=== PATIENT | female | born 1935 | race Two or more races ===

== ENCOUNTER → 2017-03-28 | Outpatient (CLI) | payer OTHER, MEDICAID | LOC: FIMAGING 12:24 | PROVIDERS: ATTEND Internal Medicine Infectious Disease | DX: R76.11 Nonspecific reaction to tuberculin skin test without active tuberculosis (principal); Z87.898 Personal history of other specified conditions ==

== ENCOUNTER 2017-05-19 13:42 | Emergency (ER) | payer OTHER, MEDICAID ==
--- NOTE | 2017-05-19 13:56 | EDPHY ---
H & P Stated Complaint: fell tues/inj low back and knees/can't walk r/t pain - Personal History Current Tetanus/Diphtheria Vaccine: Yes - Medical/Surgical History Hx Asthma: No Hx Chronic Respiratory Disease: No Hx Diabetes: Yes Hx Cardiac Disease: No Hx Renal Disease: No Hx Cirrhosis: No Hx Alcoholism: No Hx HIV/AIDS: No Hx Splenectomy or Spleen Trauma: No Other PMH: HTN, STROKE, diabetes, arthritis - Social History Smoking Status: Former smoker Time Seen by Provider: 05/19/17 13:55 Constitutional: Initial Vital Signs Temperature (C) 36.8 C 05/19/17 13:47 Heart Rate 81 05/19/17 13:47 Respiratory Rate 18 05/19/17 13:47 Blood Pressure 155/75 H 05/19/17 13:47 O2 Sat (%) 95 05/19/17 13:47 O2 Delivery Mode Room Air Allergies/Adverse Reactions: Penicillins Allergy (Unknown, Verified 05/19/17 13:46) Home Medications: Medication Instructions Recorded Aspirin EC [Aspirin EC 81 mg (*)] 81 mg PO DAILY 01/04/16 Calcium Carb W/Vit D [Calcium Carb 500 mg PO DAILY 01/04/16 W/Vit D 500/200 (*)] Cetirizine [ZyrTEC 10 mg (*)] 10 mg PO DAILY 01/04/16 Hydrochlorothiazide 25 mg PO DAILY 01/04/16 Rosuvastatin Calcium [Crestor] 10 mg PO HS 01/04/16 metFORMIN HCL [Glucophage 500 mg 1,000 mg PO BIDMEAL 01/04/16 (*)] LOSARTAN POTASSIUM 25 mg PO DAILY 02/15/16 Lisinopril [Zestril 10 mg (*)] 10 mg PO DAILY 04/13/16 predniSONE 2.5 mg PO TID 04/13/16 sulfaSALAzine [Azulfidine 500 MG 500 mg PO BID 04/13/16 (*)] Acetaminophen [Tylenol 325mg (*)] 650 mg PO Q4 PRN #0 tab 04/16/16 Pantoprazole Sodium [Protonix 40mg 40 mg PO DAILY #21 tab 04/16/16 (*)] Medical Decision Making ED Course/Re-evaluation: CHIEF COMPLAINT: HISTORY OF PRESENT ILLNESS: must have 4 elements: Location, Quality, Severity , Duration, Timing, Context, Modifying Factors, Associated Signs and Symptoms REVIEW OF SYSTEMS: A 10 point review of systems was performed and is negative with the exception of the elements mentioned in the history of present illness. PHYSICAL EXAM: HR, BP, O2 Sat, RR. Temp noted General Appearance: Alert, well hydrated, appropriate, and non-toxic appearing. Head: Atraumatic without scalp tenderness or obvious injury Eyes: Pupils equal, round, reactive to light and accommodation, EOMI, no trauma , no injection. Ears: Clear bilaterally, no perforation, normal landmarks Nose: Atraumatic, no rhinorrhea, clear. Throat: There is no erythema or exudates, no lesions, normal tonsils, mucus membranes moist. Neck: Supple, 2+ carotid upstroke, nontender, no lymphadenopathy. Respiratory: No retractions, no distress, no wheezes, and no accessory muscle use. Lungs are clear to auscultation bilaterally. Cardiovascular: Regular rate and rhythm, no murmurs, rubs, or gallops. Bilateral carotid, radial, dorsalis pedis, and posterior tibial pulses intact. Good capillary refill all extremities. Gastrointestinal: Abdomen is soft, nontender, non-distended, no masses, no rebound, no guarding, no peritoneal signs. Musculoskeletal: Normal active ROM of all extremities, atraumatic. Neurological: Alert, appropriate, and interactive. The patient has normal DTRs and non-focal cranial nerves, motor, sensory, and cerebellar exam. Skin: No rashes, good turgor, no nodules on palpation. Past medical history: Past surgical history: Family history: Social history: DIAGNOSTICS/PROCEDURES/CRITICAL CARE TIME: DIFFERENTIAL DIAGNOSIS: MEDICAL DECISION MAKING: (Vance Marina) Departure - Departure Referrals: Yemi Brewer MD [Primary Care Provider] - As per Instructions
[2017-05-19] MEDS ORDERED: ONDANSETRON 4 MG/2 ML VIAL IVP ONE (14:29)
[2017-05-19 14:35] LABS: % IMMATURE GRANULYOCYTES 0.2 % (0.0-1.1); ABSOLUTE IMMATURE GRANULOCYTES 0.02 10^3/uL (0.00-0.10); ADD DIFF? NO; ADD MORPH? NO; ADD SCAN? NO; ATYPICAL LYMPHOCYTE FLAG 0 (0-99); FRAGMENT RBC FLAG 0 (0-99); HEMATOCRIT 37.4 % (38.0-47.0); HEMOGLOBIN 13.2 g/dL (12.6-16.3); LEFT SHIFT FLG 0 (0-99); LIPEMIA HEMOLYSIS FLAG 90 (0-99); MEAN CELL HEMOGLOBIN 30.1 pg (27.9-34.1); MEAN CELL HEMOGLOBIN CONCENTR. 35.3 g/dL (32.4-36.7); MEAN CELL VOLUME 85.4 fL (81.5-99.8); PLATELET CLUMPS FLAG 10 (0-99); PLATELET COUNT 326 10^3/uL (150-400); RED BLOOD CELL COUNT 4.38 10^6/uL (4.18-5.33); RED CELL DISTRIBUTION WIDTH 13.2 % (11.5-15.2)
[2017-05-19 14:45] LABS: ANION GAP 15 mEq/L (8-16); CALCIUM 10.5 mg/dL (8.5-10.4); CARBON DIOXIDE 22 mEq/l (22-31); CHLORIDE 91 mEq/L (97-110); CREATININE 0.7 mg/dL (0.6-1.0); GLOMERULAR FILTRATION RATE > 60; GLUCOSE 201 mg/dL (70-100); POTASSIUM 4.6 mEq/L (3.5-5.2); SODIUM 128 mEq/L (134-144); SPECIMEN HEMOLYSIS 166
[2017-05-19] MEDS ORDERED: NS 1,000 ML IV ONE (15:21)
[2017-05-19 15:44] LABS: COLOR AMBER; LEUKOCYTE ESTERASE,URINE NEGATIVE (NEGATIVE); NITRITE,URINE NEGATIVE (NEGATIVE)
[2017-05-19 15:45] LABS: MUCUS TRACE /lpf (NONE-1+)
--- NOTE | 2017-05-19 17:18 | EDPHY ---
H & P Stated Complaint: fell tues/inj low back and knees/can't walk r/t pain - Personal History Current Tetanus/Diphtheria Vaccine: Yes - Medical/Surgical History Hx Asthma: No Hx Chronic Respiratory Disease: No Hx Diabetes: Yes Hx Cardiac Disease: No Hx Renal Disease: No Hx Cirrhosis: No Hx Alcoholism: No Hx HIV/AIDS: No Hx Splenectomy or Spleen Trauma: No Other PMH: HTN, STROKE, diabetes, arthritis - Social History Smoking Status: Former smoker Time Seen by Provider: 05/19/17 13:55 HPI/ROS: Chief complaint. Back pain after fall HPI. 81-year-old female presents emergency department with low back pain and left leg pain after fall 4 days ago. She was walking down the stairs and apparently her low leg gave out and she sat down hard on her bottom on the step. She did not fall forward or down the stairs. Did not strike her head. She has complaint of pain to her neck, mid back as well as low back. She also complains of pain to the left hip and left knee. Difficulty walking secondary to pain. Denies chest pain or shortness of breath. No abdominal pain. ROS Constitutional. no fever/chills, no weakness Eyes. no problems with vision ENT. no sore throat, no nasal drainage Cardiovascular. no chest pain Respiratory. no shortness of breath, no cough Abdominal. no abdominal pain, no nausea/vomiting, no diarrhea . no problems urinating MS. Neck, thoracic, low back pain; pain to left hip and left knee Skin. no rash Lymph. no swollen glands Neuro. Difficulty walking secondary to pain (Pedro Mariano) - Medical/Surgical History PMH: Past medical history significant for hypertension, CVA, diabetes, arthritis ( Pedro Mariano) - Social History Additional Social History: Single, nonsmoker, no alcohol (Pedro Mariano) Constitutional: Initial Vital Signs Temperature (C) 36.8 C 05/19/17 13:47 Heart Rate 81 05/19/17 13:47 Respiratory Rate 18 05/19/17 13:47 Blood Pressure 155/75 H 05/19/17 13:47 O2 Sat (%) 95 05/19/17 13:47 O2 Delivery Mode Room Air Allergies/Adverse Reactions: Penicillins Allergy (Unknown, Verified 05/19/17 13:46) Home Medications: Medication Instructions Recorded Aspirin EC [Aspirin EC 81 mg (*)] 81 mg PO DAILY 01/04/16 Calcium Carb W/Vit D [Calcium Carb 500 mg PO DAILY 01/04/16 W/Vit D 500/200 (*)] Cetirizine [ZyrTEC 10 mg (*)] 10 mg PO DAILY 01/04/16 Hydrochlorothiazide 25 mg PO DAILY 01/04/16 Rosuvastatin Calcium [Crestor] 10 mg PO HS 01/04/16 metFORMIN HCL [Glucophage 500 mg 1,000 mg PO BIDMEAL 01/04/16 (*)] LOSARTAN POTASSIUM 25 mg PO DAILY 02/15/16 Lisinopril [Zestril 10 mg (*)] 10 mg PO DAILY 04/13/16 predniSONE 2.5 mg PO TID 04/13/16 sulfaSALAzine [Azulfidine 500 MG 500 mg PO BID 04/13/16 (*)] Acetaminophen [Tylenol 325mg (*)] 650 mg PO Q4 PRN #0 tab 04/16/16 Pantoprazole Sodium [Protonix 40mg 40 mg PO DAILY #21 tab 04/16/16 (*)] Acetaminophen [Tylenol Arthritis] 650 mg PO TID PRN #30 tablet.er 05/19/17 Medical Decision Making - Diagnostics Imaging: Discussed imaging studies w/ machine scallop cutter Radiologist ED Course/Re-evaluation: Care was transferred to Dr. Huber at 3:00 p.m. (Pedro Mariano) The patient's care is transferred to sc at 3:[address] Pedro Mariano. CT and imaging pending. The patient fell down her stairs a few days ago into a sitting position. She complains of full body pain. He she has a history of severe arthritis. She also has several old fractures. 5:20 p.m. we discussed the x-ray and CT results. Patient and family are reassured. She was slightly hypoxic after morphine but has now recovered. We discussed her pain and pain management. She does not have any symptoms consistent with a spinal cord or nerve injury. Family is reassured and they are eager to go home. They are asking for prescription strength Tylenol that she typically takes for pain because she ran out. She declines Vicodin. It has been too strong for her in the past. (Cameron Huber) Differential Diagnosis: Partial list of the Differential diagnosis considered include but were not limited to; fracture, dislocation, neuropathy, arthritis, fall, contusion and although unlikely based on the history and physical exam, I also considered head injury, infection. (Cameron Huber) - Data Points Laboratory Results: Laboratory Results 05/19/17 14:20 05/19/17 14:20 Medications Given: Discontinued Medications Sodium Chloride (Ns) 1,000 mls @ 0 mls/hr IV EDNOW ONE; Wide Open PRN Reason: Protocol Stop: 05/19/17 15:22 Last Admin: 05/19/17 15:29 Dose: 1,000 mls Morphine Sulfate (Morphine) 4 mg IVP EDNOW ONE Stop: 05/19/17 14:30 Last Admin: 05/19/17 14:36 Dose: 4 mg Ondansetron HCl (Zofran) 4 mg IVP EDNOW ONE Stop: 05/19/17 14:30 Last Admin: 05/19/17 14:36 Dose: 4 mg Departure - Departure Disposition: Home, Routine, Self-Care Clinical Impression: Arthritis Fall Qualifiers: Encounter type: initial encounter Qualified Code(s): W19.XXXA - Unspecified fall, initial encounter Condition: Fair Instructions: Fall Prevention for Older Adults (ED), Arthritis (ED) Referrals: Yemi Brewer MD [Primary Care Provider] - As per Instructions Prescriptions: Acetaminophen [Tylenol Arthritis] 650 mg PO TID PRN #30 tablet.er PRN Reason: Pain, Severe
[2017-05-19 17:39] VITALS: BP 137/56; PULSE 74; RESP 18; TEMP 98.4; O2SAT 98
== END 2017-05-19 17:35 | disposition home or self-care (01) ==
DX: M19.90 Unspecified osteoarthritis, unspecified site (principal); I10 Essential (primary) hypertension; E11.9 Type 2 diabetes mellitus without complications; E86.9 Volume depletion, unspecified; Z87.891 Personal history of nicotine dependence; Z86.73 Personal history of transient ischemic attack (TIA), and cerebral infarction without residual deficits; Z79.82 Long term (current) use of aspirin; Z79.84 Long term (current) use of oral hypoglycemic drugs; W18.39XA Other fall on same level, initial encounter
CPT/HCPCS: 72125; 72128; 72131; 73502; 73564; 96361; 96374; 96375; 99285; J2405

== ENCOUNTER 2017-07-02 08:25 | Emergency (ER) | payer OTHER, MEDICAID ==
--- NOTE | 2017-07-02 09:00 | EDPHY ---
H & P Stated Complaint: Fell last Sunday; pain all over;family wants admit for pain control Time Seen by Provider: 07/02/17 09:00 - Personal History Current Tetanus Diphtheria and Acellular Pertussis (TDAP): Unsure - Medical/Surgical History Hx Asthma: No Hx Chronic Respiratory Disease: No Hx Diabetes: Yes Hx Cardiac Disease: No Hx Renal Disease: No Hx Cirrhosis: No Hx Alcoholism: No Hx HIV/AIDS: No Hx Splenectomy or Spleen Trauma: No Other PMH: HTN, STROKE, diabetes, arthritis, chronic pain - Social History Smoking Status: Former smoker Constitutional: Initial Vital Signs Temperature (C) 36.9 C 07/02/17 08:30 Heart Rate 83 07/02/17 08:30 Respiratory Rate 18 07/02/17 08:30 Blood Pressure 180/80 H 07/02/17 08:30 O2 Sat (%) 95 07/02/17 08:30 O2 Delivery Mode Room Air Allergies/Adverse Reactions: Penicillins Allergy (Unknown, Verified 07/02/17 08:37) Home Medications: Medication Instructions Recorded Aspirin EC [Aspirin EC 81 mg (*)] 81 mg PO DAILY 01/04/16 Calcium Carb W/Vit D [Calcium Carb 500 mg PO DAILY 01/04/16 W/Vit D 500/200 (*)] Cetirizine [ZyrTEC 10 mg (*)] 10 mg PO DAILY 01/04/16 Hydrochlorothiazide 25 mg PO DAILY 01/04/16 Rosuvastatin Calcium [Crestor] 10 mg PO HS 01/04/16 metFORMIN HCL [Glucophage 500 mg 1,000 mg PO BIDMEAL 01/04/16 (*)] LOSARTAN POTASSIUM 25 mg PO DAILY 02/15/16 Lisinopril [Zestril 10 mg (*)] 10 mg PO DAILY 04/13/16 predniSONE 2.5 mg PO TID 04/13/16 sulfaSALAzine [Azulfidine 500 MG 500 mg PO BID 04/13/16 (*)] Acetaminophen [Tylenol 325mg (*)] 650 mg PO Q4 PRN #0 tab 04/16/16 Pantoprazole Sodium [Protonix 40mg 40 mg PO DAILY #21 tab 04/16/16 (*)] Acetaminophen [Tylenol Arthritis] 650 mg PO TID PRN #30 tablet.er 05/19/17 CYCLOBENZAPRINE HCL [Flexeril] 5 mg PO BID PRN #20 tab 07/02/17 oxyCODONE IR [Oxycodone Ir (*)] 5 - 10 mg PO Q6 PRN #20 tab 07/02/17 Medical Decision Making - Diagnostics Imaging Results: Imaging Impressions Knee X-Ray 07/02/17 09:35 Impression: No acute osseous findings. Pelvis CT 07/02/17 09:35 Impression: No acute osseous findings. If pain persists and clinical suspicion warrants, consider MRI. Findings discussed with Vance Marina MD, 07/02/2017, at 1054 hours. Shoulder X-Ray 07/02/17 09:35 Impression: 1. No acute osseous findings. 2. Chronic rotator cuff tear. 3. Moderate acromioclavicular arthrosis. 4. Additional findings as above. Imaging: Discussed imaging studies w/ bingo caller Radiologist ED Course/Re-evaluation: CHIEF COMPLAINT: Right hip pain. HISTORY OF PRESENT ILLNESS: The patient is an 81-year-old female presenting with right hip pain after a fall last week. The patient has not been able to walk since the fall. She also complains of left shoulder and left knee pain. Patient is in significant amount of pain. The patient was seen here 05/19 with back pain and left leg pain after a fall. She had x-ray imaging of her left knee and leg that was negative and CT imaging of CTL spine was negative. REVIEW OF SYSTEMS: A 10 point review of systems was performed and is negative with the exception of the elements mentioned in the history of present illness. PHYSICAL EXAM: General Appearance: Alert, no distress, talking appropriately, comfortable. Head: Atraumatic without scalp tenderness or obvious injury Eyes: Pupils equal, round, reactive to light and accommodation, EOMI, no trauma , no injection. Ears: Clear bilaterally, no perforation, no hemotympanum Nose: Atraumatic, no rhinorrhea, no septal hematoma Neck: The patient arrived in a cervical collar. All NEXUS criteria are negative. The cervical spine is non-tender and there is no pain or neurologic deficits with active range of motion. Supple, 2+ carotid upstroke bilaterally without bruit, no trauma, trachea midline. Cardiovascular: Heart is regular rate and rhythm without murmur. Bilateral carotid, radial, dorsalis pedis pulses intact. Good capillary refill all extremities. Chest: Atraumatic, equal bilateral breath sounds. Good oxygen saturations with normal minute ventilation. Chest is non-tender to palpation. Gastrointestinal: Soft, non-tender, non-distended. No rebound, guarding, or peritoneal signs. There is no evidence of external or internal trauma. Back: Spinal precautions were maintained as the patient was log-rolled with cervical control. There is no thoracic or lumbar spine or paraspinal tenderness. Spinal immobilization was removed. Extremities: All extremities are non-tender to palpation without obvious deformity. There is full active range of motion of the joints. Neurological: The patient has normal DTRs and non-focal Cranial nerves, motor, sensory, and cerebellar exam Skin: No lacerations, lópez, or abrasions. Past medical history: Hypertension, CVA, Diabetes, Arthritis Past surgical history: Denies. Family history: Noncontributory. Social history: Italian speaking. Family at bedside. DIAGNOSTICS/PROCEDURES/CRITICAL CARE TIME: I discussed imaging with the cotton expert radiologist, please see imaging section for full report. DIFFERENTIAL DIAGNOSIS: The differential diagnosis for the patient's trauma included but was not limited to intracranial injury, long bone and pelvic bone fractures, spinal injury, intra-abdominal injury, and intra-thoracic injury. MEDICAL DECISION MAKING: Patient presents with severe right hip pain and left shoulder and left knee pain after a mechanical fall. Patient has not been able to ambulate since the fall. Plan for x-ray imaging of hip, knee, and shoulder. X-ray imaging is negative for acute injuries. Pain likely chronic. I will have our rn case manager meet with the patient. I discussed findings with the patient. Plan to send patient home with Flexeril and Oxycodone for pain management. - Data Points Laboratory Results: Laboratory Results 07/02/17 09:15 07/02/17 09:15 07/02/17 07/02/17 09:15 09:15 WBC 12.40 10^3/uL H 10^3/uL (3.80-9.50) RBC 4.07 10^6/uL L 10^6/uL (4.18-5.33) Hgb 12.4 g/dL L g/dL (12.6-16.3) Hct 36.5 % L % (38.0-47.0) MCV 89.7 fL fL (81.5-99.8) MCH 30.5 pg pg (27.9-34.1) MCHC 34.0 g/dL g/dL (32.4-36.7) RDW 13.9 % % (11.5-15.2) Plt Count 362 10^3/uL 10^3/uL (150-400) MPV 10.9 fL fL (8.7-11.7) Neut % (Auto) 72.5 % % (39.3-74.2) Lymph % (Auto) 13.9 % L % (15.0-45.0) Izard % (Auto) 12.0 % % (4.5-13.0) Eos % (Auto) 0.5 % L % (0.6-7.6) Baso % (Auto) 0.6 % % (0.3-1.7) Nucleat RBC Rel Count 0.0 % % (0.0-0.2) Absolute Neuts (auto) 9.00 10^3/uL H 10^3/uL (1.70-6.50) Absolute Lymphs (auto) 1.72 10^3/uL 10^3/uL (1.00-3.00) Absolute Monos (auto) 1.49 10^3/uL H 10^3/uL (0.30-0.80) Absolute Eos (auto) 0.06 10^3/uL 10^3/uL (0.03-0.40) Absolute Basos (auto) 0.07 10^3/uL 10^3/uL (0.02-0.10) Absolute Nucleated RBC 0.00 10^3/uL 10^3/uL (0-0.01) Immature Gran % 0.5 % % (0.0-1.1) Immature Gran # 0.06 10^3/uL 10^3/uL (0.00-0.10) Sodium 134 mEq/L mEq/L (134-144) Potassium 4.1 mEq/L mEq/L (3.5-5.2) Chloride 98 mEq/L mEq/L (97-110) Carbon Dioxide 22 mEq/l mEq/l (22-31) Anion Gap 14 mEq/L mEq/L (8-16) BUN 13 mg/dL mg/dL (7-23) Creatinine 0.5 mg/dL L mg/dL (0.6-1.0) Estimated GFR > 60 Glucose 126 mg/dL H mg/dL (70-100) Calcium 10.3 mg/dL mg/dL (8.5-10.4) Medications Given: Discontinued Medications Hydromorphone HCl (Dilaudid) 0.5 mg IVP EDNOW ONE Stop: 07/02/17 09:45 Last Admin: 07/02/17 09:45 Dose: 0.5 mg Hydromorphone HCl (Dilaudid) 1 mg IVP EDNOW ONE Stop: 07/02/17 11:31 Last Admin: 07/02/17 11:32 Dose: 1 mg Departure - Departure Disposition: Home, Routine, Self-Care Clinical Impression: Multiple falls Chronic pain Qualifiers: Chronic pain type: other chronic pain Qualified Code(s): G89.29 - Other chronic pain Condition: Good Instructions: Chronic Pain (ED) Additional Instructions: Take Flexeril as directed for muscle spasms. Take Oxycodone as directed for severe pain. Followup with your primary care physician as needed. Referrals: [facility] [Clinic] - As per Instructions Prescriptions: CYCLOBENZAPRINE HCL [Flexeril] 5 mg PO BID PRN #20 tab PRN Reason: Spasms oxyCODONE IR [Oxycodone Ir (*)] 5 - 10 mg PO Q6 PRN #20 tab PRN Reason: Pain, Severe Report Scribed for: Vance Marina Report Scribed by: Shawnee Moreno Date of Report: 07/02/17 Time of Report: 09:26
[2017-07-02 09:39] LABS: % IMMATURE GRANULYOCYTES 0.5 % (0.0-1.1); ABSOLUTE IMMATURE GRANULOCYTES 0.06 10^3/uL (0.00-0.10); ADD DIFF? NO; ADD MORPH? NO; ADD SCAN? YES; ATYPICAL LYMPHOCYTE FLAG 0 (0-99); FRAGMENT RBC FLAG 0 (0-99); HEMATOCRIT 36.5 % (38.0-47.0); HEMOGLOBIN 12.4 g/dL (12.6-16.3); LEFT SHIFT FLG 0 (0-99); LIPEMIA HEMOLYSIS FLAG 90 (0-99); MEAN CELL HEMOGLOBIN 30.5 pg (27.9-34.1); MEAN CELL VOLUME 89.7 fL (81.5-99.8); MEAN PLATELET VOLUME 10.9 fL (8.7-11.7); PLATELET COUNT 362 10^3/uL (150-400); RED BLOOD CELL COUNT 4.07 10^6/uL (4.18-5.33); RED CELL DISTRIBUTION WIDTH 13.9 % (11.5-15.2)
[2017-07-02 09:40] LABS: PLATELET CLUMPS FLAG 150 (0-99)
[2017-07-02] MEDS ORDERED: HYDROmorphONE/DILAUDID 1 MG/ML INJ ONE ×2 (09:41→11:25)
[2017-07-02] MEDS ORDERED: HYDROmorphONE/DILAUDID 1 MG/ML INJ IVP ONE ×2 (09:44→11:30)
[2017-07-02 09:48] LABS: ANION GAP 14 mEq/L (8-16); CALCIUM 10.3 mg/dL (8.5-10.4); CARBON DIOXIDE 22 mEq/l (22-31); CHLORIDE 98 mEq/L (97-110); CREATININE 0.5 mg/dL (0.6-1.0); GLOMERULAR FILTRATION RATE > 60; GLUCOSE 126 mg/dL (70-100); POTASSIUM 4.1 mEq/L (3.5-5.2); SODIUM 134 mEq/L (134-144)
[2017-07-02 10:03] LABS: SCAN NEGATIVE
[2017-07-02 11:52] VITALS: BP 157/90; PULSE 82; RESP 16; TEMP 99.5; O2SAT 91
--- NOTE | 2017-07-02 12:28 | ASMTCMCOM ---
CM Note CM Note Notes: Spoke with patient and patient's daughters Elida and Kirsty at bedside with [employer] House Lab[employer]. Patient had a fall about 8 days ago. Patient has been having increased falls at home in the past month or so. Patient lives in a private apartment on the 2nd floor of a building. Patient was seen 05/19/17 in the ED after she had a mechanical fall at home. Since then patient's daughters have been switching out with staying with her. Patient has been only able to get around by wheelchair since end of April. Elida states patient's PCP is Dr Yemi Brewer at [facility] and they had an appointment with him recently but there was a miscommunication/misunderstanding and they showed up on the wrong day for the appointment. Elida says patient has been off of her arthritis medications for the past 2 months because she is taking TB medication. Patient has 2 more months of TB medication to complete. Patient has a package reinspector who is following her and they will follow up once she has completed her TB medication. Spoke with Chapito at [facility] and was able to get patient an appointment with Dr Brewer next Sunday07/11/17 at 11:40am. Discussed reason for visit such as followup from ED visits, increased falls, pain management, and possible need for homecare PT/OT so as to keep patient moving as much as possible. Elida says she will have to make sure she can get help from her brother or other family members to get patient to the appointment. Elida is agreeable with discharge plan and says she will call [facility] if she needs to reschedule the appointment. [employer] House Laborer went over discharge instructions with patient and family. Date Signed: 07/02/2017 12:27 PM Electronically Signed By:Kathy Peter
== END 2017-07-02 12:16 | disposition home or self-care (01) ==
DX: S79.911A Unspecified injury of right hip, initial encounter (principal); G89.29 Other chronic pain; I10 Essential (primary) hypertension; E11.9 Type 2 diabetes mellitus without complications; Z87.891 Personal history of nicotine dependence; Z79.82 Long term (current) use of aspirin; Z79.84 Long term (current) use of oral hypoglycemic drugs; W19.XXXA Unspecified fall, initial encounter
CPT/HCPCS: 72192; 73030; 73564; 96374; 96376; 99285; J1170

== ENCOUNTER 2017-07-05 12:00 | Inpatient (IN) | payer OTHER, MEDICAID ==
[2017-07-05 12:36] LABS: % IMMATURE GRANULYOCYTES 0.6 % (0.0-1.1); ADD DIFF? NO; ADD MORPH? NO; ADD SCAN? NO; ATYPICAL LYMPHOCYTE FLAG 0 (0-99); FRAGMENT RBC FLAG 0 (0-99); HEMATOCRIT 34.1 % (38.0-47.0); HEMOGLOBIN 11.9 g/dL (12.6-16.3); LEFT SHIFT FLG 0 (0-99); LIPEMIA HEMOLYSIS FLAG 90 (0-99); MEAN CELL HEMOGLOBIN 30.4 pg (27.9-34.1); MEAN CELL HEMOGLOBIN CONCENTR. 34.9 g/dL (32.4-36.7); MEAN CELL VOLUME 87.2 fL (81.5-99.8); MEAN PLATELET VOLUME 11.2 fL (8.7-11.7); PLATELET CLUMPS FLAG 0 (0-99); PLATELET COUNT 329 10^3/uL (150-400); RED BLOOD CELL COUNT 3.91 10^6/uL (4.18-5.33); RED CELL DISTRIBUTION WIDTH 13.4 % (11.5-15.2)
[2017-07-05 12:46] LABS: ANION GAP 19 mEq/L (8-16); CALCIUM 10.4 mg/dL (8.5-10.4); CARBON DIOXIDE 21 mEq/l (22-31); CHLORIDE 85 mEq/L (97-110); CREATININE 1.8 mg/dL (0.6-1.0); GLOMERULAR FILTRATION RATE 27; GLUCOSE 121 mg/dL (70-100); POTASSIUM 4.5 mEq/L (3.5-5.2); SODIUM 125 mEq/L (134-144)
--- NOTE | 2017-07-05 12:46 | CPEKG ---
Heart Rate: 92 RR Interval: 652 P-R Interval: 140 QRSD Interval: 120 QT Interval: 356 QTC Interval: 441 P Margaret: 52 QRS Margaret: 0 T Wave Margaret: 0 EKG Severity - ABNORMAL ECG - EKG Impression: SINUS RHYTHM EKG Impression: RBBB Electronically Signed By: Brandon Flores 06-Jul-2017 12:21:25
--- NOTE | 2017-07-05 13:34 | EDPHY ---
H & P Stated Complaint: generalized all over pain and weakness, increasing since sunday Time Seen by Provider: 07/05/17 13:27 HPI/ROS: CHIEF COMPLAINT: Dizziness, Nausea HISTORY OF PRESENT ILLNESS: The patient is an 81 y/o female arriving with her family complaining of global pain. She has a history of chronic rheumatoid arthritis. She has a history of aneurysm (2004), and went to the ER Sunday and recieved a shoulder x-ray and chest CT for a fall without loss of conciousness and arthritis pain. She was discharged from the ER Sunday with pain meds for arthritis. She currently has a fever 100.5 and has been experiencing worsening pain with increased generalized weakness since Sunday. Her daughter reports she has been experienced increased chest pain, and severe "needle-like pain" in her right knee. She currently has swollen legs and unbearable needle-like pain in her knees, increased stomach swelling and pain in her legs and feet. Her family reports they have to carry her around the house but wee unHad an abnormal bowel movement this morning and frequent urination, and diarrhea, she is experiencing chest pain, cannot move any of her extremities due to pain, painful bowel movements. She denies vomiting. Low gradee fever worsening body pain, fall, and severe right knee pain Sodium is 125 [No fever, chills, chest pain, shortness of breath, palpitations, vomiting, diarrhea, urinary complaints, headache, lightheadedness. ] REVIEW OF SYSTEMS: Aside from elements discussed in the HPI, a comprehensive 10-point review of systems was reviewed and is negative. PAST MEDICAL HISTORY: Rheumatoid arthritis, diabetes, COPD, hypertension, kidney stones, aneurysm 2004 SOCIAL HISTORY: Nonsmoker, social drinker. VITAL SIGNS: Reviewed by ga Crit 1.8 Na 125 WBC 49530 GENERAL: Well-developed, well-nourished, resting comfortably in no respiratory distress. HEENT: Atraumatic. Eyes: No icterus, no injection. Mouth: moist mucous membranes. No erythema or lesions. Neck: supple with no adenopathy. Pupils are round and reactive to light LUNGS: Clear to auscultation anteriorly, no wheezes, rhonchi or rales, exam limited due to patient's pain. CARDIAC: Afib rate , no rubs, murmurs or gallops. Little irregular heartbeat. ABDOMEN: Distended, soft, nontender, bowel sounds normal. BACK: No CVA tenderness. EXTREMITIES: No trauma. No edema. Range of motion is normal throughout. Right knee is warm to touch with superficial erythema, bilateral swelling of her legs. Tenderness in right wrist. NEURO: Alert and oriented, grossly nonfocal. SKIN: Warm and dry, no rash. PSYCHIATRIC: Normal mentation, no agitation. UA, X-ray, Head CAT Scan, troponin. Sepsis workup, DRENCHER, sederate for arthritis. Acute renal failure, sodium is low, white count has increased since Sunday Portions of this note were transcribed by a bilingual medical receptionist. I personally performed a history, physical exam, medical decision making, and confirmed accuracy of information the transcribed note - Personal History Current Tetanus/Diphtheria Vaccine: Yes Current Tetanus Diphtheria and Acellular Pertussis (TDAP): Yes - Medical/Surgical History Hx Asthma: No Hx Chronic Respiratory Disease: No Hx Diabetes: Yes Hx Cardiac Disease: No Hx Renal Disease: No Hx Cirrhosis: No Hx Alcoholism: No Hx HIV/AIDS: No Hx Splenectomy or Spleen Trauma: No Other PMH: HTN, STROKE, diabetes, arthritis, chronic pain, copd, currently being treated for inactive TB - Social History Smoking Status: Former smoker Constitutional: Initial Vital Signs Temperature (C) 37.1 C 07/05/17 12:10 Heart Rate 87 07/05/17 12:10 Respiratory Rate 18 07/05/17 12:10 Blood Pressure 148/94 H 07/05/17 12:10 O2 Sat (%) 97 07/05/17 12:10 O2 Delivery Mode Nasal Cannula O2 (L/minute) 2 Allergies/Adverse Reactions: Penicillins Allergy (Unknown, Verified 07/02/17 08:37) Home Medications: Medication Instructions Recorded Aspirin EC [Aspirin EC 81 mg (*)] 81 mg PO DAILY 01/04/16 Calcium Carb W/Vit D [Calcium Carb 500 mg PO DAILY 01/04/16 W/Vit D 500/200 (*)] Cetirizine [ZyrTEC 10 mg (*)] 10 mg PO DAILY 01/04/16 Hydrochlorothiazide 25 mg PO DAILY 01/04/16 Rosuvastatin Calcium [Crestor] 10 mg PO HS 01/04/16 metFORMIN HCL [Glucophage 500 mg 1,000 mg PO BIDMEAL 01/04/16 (*)] LOSARTAN POTASSIUM 25 mg PO DAILY 02/15/16 Lisinopril [Zestril 10 mg (*)] 10 mg PO DAILY 04/13/16 predniSONE 2.5 mg PO TID 04/13/16 sulfaSALAzine [Azulfidine 500 MG 500 mg PO BID 04/13/16 (*)] Acetaminophen [Tylenol 325mg (*)] 650 mg PO Q4 PRN #0 tab 04/16/16 Pantoprazole Sodium [Protonix 40mg 40 mg PO DAILY #21 tab 04/16/16 (*)] Acetaminophen [Tylenol Arthritis] 650 mg PO TID PRN #30 tablet.er 05/19/17 CYCLOBENZAPRINE HCL [Flexeril] 5 mg PO BID PRN #20 tab 07/02/17 oxyCODONE IR [Oxycodone Ir (*)] 5 - 10 mg PO Q6 PRN #20 tab 07/02/17 Medical Decision Making - Data Points Laboratory Results: Laboratory Results 07/05/17 12:15 07/05/17 12:15 07/05/17 07/05/17 12:15 12:15 WBC 16.28 10^3/uL H 10^3/uL (3.80-9.50) RBC 3.91 10^6/uL L 10^6/uL (4.18-5.33) Hgb 11.9 g/dL L g/dL (12.6-16.3) Hct 34.1 % L % (38.0-47.0) MCV 87.2 fL fL (81.5-99.8) MCH 30.4 pg pg (27.9-34.1) MCHC 34.9 g/dL g/dL (32.4-36.7) RDW 13.4 % % (11.5-15.2) Plt Count 329 10^3/uL 10^3/uL (150-400) MPV 11.2 fL fL (8.7-11.7) Neut % (Auto) 80.5 % H % (39.3-74.2) Lymph % (Auto) 6.8 % L % (15.0-45.0) Crenshaw % (Auto) 11.8 % % (4.5-13.0) Eos % (Auto) 0.1 % L % (0.6-7.6) Baso % (Auto) 0.2 % L % (0.3-1.7) Nucleat RBC Rel Count 0.0 % % (0.0-0.2) Absolute Neuts (auto) 13.11 10^3/uL H 10^3/uL (1.70-6.50) Absolute Lymphs (auto) 1.10 10^3/uL 10^3/uL (1.00-3.00) Absolute Monos (auto) 1.92 10^3/uL H 10^3/uL (0.30-0.80) Absolute Eos (auto) 0.02 10^3/uL L 10^3/uL (0.03-0.40) Absolute Basos (auto) 0.03 10^3/uL 10^3/uL (0.02-0.10) Absolute Nucleated RBC 0.00 10^3/uL 10^3/uL (0-0.01) Immature Gran % 0.6 % % (0.0-1.1) Immature Gran # 0.10 10^3/uL 10^3/uL (0.00-0.10) Sodium 125 mEq/L L mEq/L (134-144) Potassium 4.5 mEq/L mEq/L (3.5-5.2) Chloride 85 mEq/L L mEq/L (97-110) Carbon Dioxide 21 mEq/l L mEq/l (22-31) Anion Gap 19 mEq/L H mEq/L (8-16) BUN 39 mg/dL H mg/dL (7-23) Creatinine 1.8 mg/dL H mg/dL (0.6-1.0) Estimated GFR 27 Glucose 121 mg/dL H mg/dL (70-100) Calcium 10.4 mg/dL mg/dL (8.5-10.4) Departure - Departure Disposition: [facility] Inpatient Acute Clinical Impression: Hyponatremia, Rheumatoid aortitis, Intractable pain Renal failure Qualifiers: Renal failure chronicity: acute Acute renal failure type: unspecified Qualified Code(s): N17.9 - Acute kidney failure, unspecified Elevated white blood cell count Qualifiers: Leukocytosis type: unspecified Qualified Code(s): D72.829 - Elevated white blood cell count, unspecified Fever Qualifiers: Fever type: fever of unknown origin following delivery Qualified Code(s): O86.4 - Pyrexia of unknown origin following delivery Condition: Fair Referrals: Yemi Brewer MD [Primary Care Provider] - As per Instructions
[2017-07-05] MEDS ORDERED: IOPAMIDOL (ISOVUE-300) 100 ML BTL ONE (14:12)
[2017-07-05] MEDS ORDERED: fentaNYL 100 MCG/2 ML INJ IVP ONE (14:40)
--- NOTE | 2017-07-05 14:40 | EDPHY ---
HPI/HX/ROS/PE/MDM Narrative: CHIEF COMPLAINT: Intractable pain, fever HISTORY OF PRESENT ILLNESS: The patient is a Czech-speaking 81 y/o female with a history of severe rheumatoid arthritis arriving with her family complaining of intractable whole-body pain, particularly bad in her right wrist and right knee. Her medical history also includes diabetes, hypertension, treatment for TB and COPD. She was evaluated in the ED 3 days ago for similar pain and imaging studies at that time were negative for acute process. She was discharged home with pain medication. Since then, she has had persistent pain, worsening swelling, and has developed a fever as high as 100.5F. She describes the pain in her knees as "needle-like" and is aggravated by even slight movement or light palpation. Her family has had to carry her around the house due to pain. They also note intermittent confusion, decreased urinary output, and a few episodes of diarrhea. She currently has swollen legs, knee pain, increased abdominal distention, pain in her legs and feet, and immobility due to pain. It is unclear if she has had any falls since returning home. She denies dysuria, vomiting, shortness of breath, palpitations, headache, and lightheadedness. Daughter translated for us; aerial photograph interpreter declined. REVIEW OF SYSTEMS: Aside from elements discussed in the HPI, a comprehensive 10-point review of systems was reviewed and is negative. PAST MEDICAL HISTORY: Rheumatoid arthritis, diabetes, COPD, hypertension, kidney stones, aneurysm 2005, on TB meds. Prior medical records reviewed including ED visit on 07/02/17 for pain. SOCIAL HISTORY: Nonsmoker. Occasional alcohol use. Lives in [place]. Family at bedside. Czech speaking. VITAL SIGNS: Reviewed by me. Afebrile. GENERAL: Elderly, well-nourished, appears to be in pain, in no respiratory distress. Even light touch elicits pain in much of her body. HEENT: Atraumatic. Eyes: No icterus, no injection. Mouth: moist mucous membranes. No erythema or lesions. Vesicle on upper lip, ?HSV vs fever blister. Neck: supple with no adenopathy. Pupils are round and reactive to light. LUNGS: Clear to auscultation anteriorly, I'm unable to sit patient up to auscultate posterior lung sounds secondary to her discomfort. No wheezes, rhonchi or rales. CARDIAC: Irregularly irregular rate , no rubs, murmurs or gallops. ABDOMEN: Distended with diffuse tenderness, soft, no guarding or rebound, bowel sounds normal. BACK: Deferred. EXTREMITIES: No visible trauma. Diffuse bilateral lower extremity edema. Right knee has mild erythema and is warm to the touch. Right wrist is tender to light palpation. Range of motion of all extremities limited due to severe pain. NEURO: Alert and oriented, grossly nonfocal. Patient is appropriately interactive and can follow commands but thorough exam limited due to pain. SKIN: Warm and dry, no rash. PSYCHIATRIC: Normal mentation, no agitation. Portions of this note were transcribed by a medical center representative. I personally performed a history, physical exam, medical decision making, and confirmed accuracy of information of the transcribed note. ED Course: This is an 81 y/o female with rheumatoid arthritis who presents with intractable and diffuse pain. On exam she has diffuse tenderness to palpation over all extremities and abdomen, noticeable bilateral leg swelling, and right knee erythema and warmth. Family reports recent falls as well as confusion. Plan for IV, labs including troponin, EKG, and imaging. Head, c-spine, abdomen, and pelvis CTs ordered. Chest, wrist, and elbow X-rays ordered. 25mcg IV Fentanyl administered for pain. The 12 lead EKG was interpreted by myself. See hard copy and/or "tracemaster" electronic copy for interpretation. Labs show elevated hyponatremia with a sodium of 124 which is down from 134, 3 days ago. Her fluid replacement was stopped at 500mL NS total. She has an elevated WBC at 16. We will complete a full sepsis workup. Patient will require admission for acute renal failure, hyponatremia, elevated WBCs, intractable pain , and fever. No clear source of fever and leukocytosis identified in the ED. 1509: Head and neck CT is negative for any acute process. Elbow, wrist, and chest X-rays are negative for any acute findings. 1532: Abdominal CT is positive for bilateral hydronephrosis and bladder outlet obstruction per Dr. Red, radiology. Ortho paged for consult on knee pain and perform arthocentesis if deemed possible. 1619: Consulted with Dr. Williamson, orthopedics. He will follow patient's admission. The patient presents to the ED with history of fever, body aches, possible septic joint. The patient did have not meet criteria for sepsis. MDM: Differential diagnosis for this patient presenting complaints of fever, pain, and confusion was considered including but not limited to rheumatoid flare, sepsis, urinary tract infection, viral syndrome, trauma, cva, septic joint, electrolyte abnormalities, and influenza. - Data Points Imaging Results: Imaging Impressions Chest X-Ray 07/05/17 13:48 Impression: Clear lungs. No pneumonia or effusion. Head CT 07/05/17 13:49 Impression: 1. No acute fracture or intracranial hemorrhage. 2. Old sequela of right craniotomy and placement of aneurysm clip, unchanged. Findings discussed with Emergency Department physician, Saba Taylor MD on , 1500 hours. Elbow X-Ray 07/05/17 13:50 Impression: Negative. No acute fracture or effusion. Wrist X-Ray 07/05/17 13:50 Impression: Negative. No acute fracture. Abdomen/Pelvis CT 07/05/17 13:59 Impression: 1. Subacute nondisplaced left 10th rib fracture. No acute lumbar spine or pelvic fracture. 2. No evidence of acute solid organ or bowel injury. 3. Neurogenic bladder versus urinary bladder obstruction resulting in mild to moderate bilateral hydroureteronephrosis. No ureteral calculi. 4. Mild adynamic ileus. No appendicitis or bowel obstruction Findings discussed with Emergency Department physician, Saba Taylor MD on , 1530 hours. Attention: This CT examination is specifically designed to evaluate patients who are clinically suspected of having acute obstructive uropathy. This examination does not use radiographic contrast, and as such, provides only a limited evaluation of the abdomen, pelvis and retroperitoneum. If there is further clinical suspicion for pathological conditions other than obstructive uropathy, a complete CT evaluation of the abdomen and pelvis utilizing intravenous, oral, and rectal contrast should be considered. Cervical Spine CT 07/05/17 14:35 Impression: 1. No acute fracture or soft tissue swelling. 2. Multilevel degenerative disk and facet arthropathy resulting in severe bilateral neural foraminal narrowing at C3-C4 and C4-C5 is unchanged. 3. If the patient has persistent pain or neurologic deficits, consider cervical spine MRI. Findings discussed with Emergency Department physician, Saba Taylor MD on , 1500 hours. Imaging: Discussed imaging studies w/ will call clerk Radiologist, I viewed and interpreted images myself Laboratory Results: Laboratory Results 07/05/17 12:15 07/05/17 12:15 07/05/17 07/05/17 07/05/17 14:30 12:15 12:15 WBC RBC Hgb Hct 34.5 % L % (38.0-47.0) MCV MCH MCHC RDW Plt Count MPV Neut % (Auto) Lymph % (Auto) Oliver % (Auto) Eos % (Auto) Baso % (Auto) Nucleat RBC Rel Count Absolute Neuts (auto) Absolute Lymphs (auto) Absolute Monos (auto) Absolute Eos (auto) Absolute Basos (auto) Absolute Nucleated RBC Immature Gran % Immature Gran # ESR 87 MM/HR H MM/HR (0-30) PT INR APTT VBG Lactic Acid 1.6 mmol/L mmol/L (0.7-2.1) Sodium Potassium Chloride Carbon Dioxide Anion Gap BUN Creatinine Estimated GFR Glucose Calcium Total Bilirubin 2.5 mg/dL H mg/dL (0.1-1.4) Conjugated Bilirubin 1.4 mg/dL H mg/dL (0.0-0.5) Unconjugated Bilirubin 1.1 mg/dL mg/dL (0.0-1.1) Troponin I < 0.012 ng/mL ng/mL (0.000-0.034) C-Reactive Protein 514.4 mg/L H mg/L (<10.0) 07/05/17 07/05/17 07/05/17 12:15 12:15 12:15 WBC 16.28 10^3/uL H 10^3/uL (3.80-9.50) RBC 3.91 10^6/uL L 10^6/uL (4.18-5.33) Hgb 11.9 g/dL L g/dL (12.6-16.3) Hct 34.1 % L % (38.0-47.0) MCV 87.2 fL fL (81.5-99.8) MCH 30.4 pg pg (27.9-34.1) MCHC 34.9 g/dL g/dL (32.4-36.7) RDW 13.4 % % (11.5-15.2) Plt Count 329 10^3/uL 10^3/uL (150-400) MPV 11.2 fL fL (8.7-11.7) Neut % (Auto) 80.5 % H % (39.3-74.2) Lymph % (Auto) 6.8 % L % (15.0-45.0) Oliver % (Auto) 11.8 % % (4.5-13.0) Eos % (Auto) 0.1 % L % (0.6-7.6) Baso % (Auto) 0.2 % L % (0.3-1.7) Nucleat RBC Rel Count 0.0 % % (0.0-0.2) Absolute Neuts (auto) 13.11 10^3/uL H 10^3/uL (1.70-6.50) Absolute Lymphs (auto) 1.10 10^3/uL 10^3/uL (1.00-3.00) Absolute Monos (auto) 1.92 10^3/uL H 10^3/uL (0.30-0.80) Absolute Eos (auto) 0.02 10^3/uL L 10^3/uL (0.03-0.40) Absolute Basos (auto) 0.03 10^3/uL 10^3/uL (0.02-0.10) Absolute Nucleated RBC 0.00 10^3/uL 10^3/uL (0-0.01) Immature Gran % 0.6 % % (0.0-1.1) Immature Gran # 0.10 10^3/uL 10^3/uL (0.00-0.10) ESR PT 14.3 SEC SEC (12.0-15.0) INR 1.12 (0.83-1.16) APTT 33.8 SEC SEC (23.0-38.0) VBG Lactic Acid Sodium 125 mEq/L L mEq/L (134-144) Potassium 4.5 mEq/L mEq/L (3.5-5.2) Chloride 85 mEq/L L mEq/L (97-110) Carbon Dioxide 21 mEq/l L mEq/l (22-31) Anion Gap 19 mEq/L H mEq/L (8-16) BUN 39 mg/dL H mg/dL (7-23) Creatinine 1.8 mg/dL H mg/dL (0.6-1.0) Estimated GFR 27 Glucose 121 mg/dL H mg/dL (70-100) Calcium 10.4 mg/dL mg/dL (8.5-10.4) Total Bilirubin Conjugated Bilirubin Unconjugated Bilirubin Troponin I C-Reactive Protein Medications Given: Hydrocodone Bitart/Acetaminophen (Putnam 5/325) 1 tab PO Q4HRS PRN PRN Reason: Pain, Moderate Able to Take PO Stop: 07/15/17 14:47 Last Admin: 07/05/17 16:57 Dose: 1 tab Discontinued Medications Fentanyl (Sublimaze) 25 mcg IVP EDNOW ONE Stop: 07/05/17 14:41 Last Admin: 07/05/17 14:53 Dose: 25 mcg Sodium Chloride (Ns) 500 mls @ 1,500 mls/hr IV ONCE ONE Stop: 07/05/17 15:07 Last Admin: 07/05/17 17:10 Dose: Not Given General Time Seen by Provider: 07/05/17 13:27 Initial Vital Signs: Initial Vital Signs Temperature (C) 37.1 C 07/05/17 12:10 Heart Rate 87 07/05/17 12:10 Respiratory Rate 18 07/05/17 12:10 Blood Pressure 148/94 H 07/05/17 12:10 O2 Sat (%) 97 07/05/17 12:10 O2 Delivery Mode Nasal Cannula O2 (L/minute) 2 Allergies/Adverse Reactions: Penicillins Allergy (Unknown, Verified 07/02/17 08:37) Home Medications: Medication Instructions Recorded Aspirin EC [Aspirin EC 81 mg (*)] 81 mg PO DAILY 01/04/16 Calcium Carb W/Vit D [Calcium Carb 500 mg PO DAILY 01/04/16 W/Vit D 500/200 (*)] Cetirizine [ZyrTEC 10 mg (*)] 10 mg PO DAILY 01/04/16 Hydrochlorothiazide 25 mg PO DAILY 01/04/16 metFORMIN HCL [Glucophage 500 mg 250 mg PO BIDMEAL 01/04/16 (*)] Acetaminophen [Tylenol 325mg (*)] 650 mg PO Q4 PRN #0 tab 04/16/16 CYCLOBENZAPRINE HCL [Flexeril] 5 mg PO BID PRN #20 tab 07/02/17 oxyCODONE IR [Oxycodone Ir (*)] 5 - 10 mg PO Q6 PRN #20 tab 07/02/17 Losartan Potassium [Cozaar 50 mg 50 mg PO DAILY 07/05/17 (*)] Rifampin [Rifadin 300mg (*)] 600 mg PO DAILY 07/05/17 Rosuvastatin Calcium [Crestor 10mg 10 mg PO DAILY 07/05/17 (RX)] Departure - Departure Disposition: [facility] Inpatient Acute Clinical Impression: Hyponatremia, Rheumatoid aortitis, Intractable pain, Bilateral hydronephrosis, Bladder outlet obstruction Renal failure Qualifiers: Renal failure chronicity: acute Acute renal failure type: unspecified Qualified Code(s): N17.9 - Acute kidney failure, unspecified Elevated white blood cell count Qualifiers: Leukocytosis type: unspecified Qualified Code(s): D72.829 - Elevated white blood cell count, unspecified Fever Qualifiers: Fever type: fever of unknown origin following delivery Qualified Code(s): O86.4 - Pyrexia of unknown origin following delivery Condition: Fair Report Scribed for: Saba Taylor Report Scribed by: Amy Urbina Date of Report: 07/05/17 Time of Report: 14:46
[2017-07-05] MEDS ORDERED: NS 500 ML IV ONE (14:48)
[2017-07-05] MEDS ORDERED: ONDANSETRON 4 MG/2 ML VIAL IVP PRN (14:48)
[2017-07-05] MEDS ORDERED: ONDANSETRON DISINTEGRATING 4 MG TAB PO PRN (14:48)
[2017-07-05] MEDS ORDERED: ACETAMINOPHEN 325 MG TAB PO PRN (14:48)
[2017-07-05 15:02] LABS: HEMATOCRIT 34.5 % (38.0-47.0)
[2017-07-05 15:09] LABS: BILIRUBIN,TOTAL 2.5 mg/dL (0.1-1.4)
[2017-07-05 15:15] LABS: INR 1.12 (0.83-1.16); PROTIME(PATIENT) 14.3 SEC (12.0-15.0)
[2017-07-05 15:16] LABS: APTT 33.8 SEC (23.0-38.0)
[2017-07-05 15:18] LABS: TROPONIN I < 0.012 ng/mL (0.000-0.034)
[2017-07-05 16:00] LABS: BILIRUBIN-CONJUGATED 1.4 mg/dL (0.0-0.5); BILIRUBIN-UNCONJUGATED 1.1 mg/dL (0.0-1.1)
[2017-07-05] MEDS ORDERED: NS 1,000 ML IV SCH (16:00)
[2017-07-05 16:03] LABS: C-REACTIVE PROTEIN 514.4 mg/L (<10.0)
[2017-07-05 16:13] LABS: COLOR AMBER; LEUKOCYTE ESTERASE,URINE NEGATIVE (NEGATIVE); NITRITE,URINE NEGATIVE (NEGATIVE)
[2017-07-05 16:18] LABS: MUCUS TRACE /lpf (NONE-1+); RBC,URINE 25-50 /hpf (0-3)
[2017-07-05 16:21] LABS: AMORPHOUS 1+ /hpf (NONE-1+)
--- NOTE | 2017-07-05 16:42 | GHP ---
[f rep st] HISTORY AND PHYSICAL DATE OF ADMISSION: 07/05/2017 CHIEF COMPLAINT: Pain, fevers, and chills. HISTORY OF PRESENT ILLNESS: An 81-year-old female with a history of rheumatoid arthritis, hypertensi on, hyperlipidemia, diabetes, and recent positive TB skin testing, on TB meds, who presents with prog ressing confusion, lethargy, fever, anorexia over the course of the last week. Family, who are her f ull-time care providers, report that the patient has had a steady decline with migratory joint compla ints, abdominal discomfort, nausea, fevers, arthralgia, and fatigue over the course of the last 72 ho urs to 5 days. The patient has had measured fevers to 100.5 in the home and has had nausea, no vomit ing. Family reports her stools have been normal. Can not describe specifically what has been happen ing with her urine. Denies any shortness of breath or cough. The patient has been reporting migrato ry joint complaints that are quite severe. She is diffusely sensitive to touch. The patient additio avis describes some confusion that has been progressing over the course of the last 72 hours includi ng discussing family members who have been long since passed. PAST MEDICAL HISTORY: 1. Rheumatoid arthritis, not on treatment secondary to her TB medications. 2. Diabetes. 3. Hypertension. 4. Hyperlipidemia. 5. History of osteomyelitis. 6. History of a cerebral aneurysm with a subarachnoid hemorrhage. 7. Positive TB skin testing, on therapy, currently 2 months into her 4-month treatment. SOCIAL HISTORY: An [id number] history of smoking, none actively. No alcohol or illicit drugs. FAMILY HISTORY: Both parents are . REVIEW OF SYSTEMS: A 10-point review of systems is negative with the exception of that reported in t he HPI. ADVANCED DIRECTIVES: The patient is do not resuscitate. Her children would be her medical decision- makers. PHYSICAL EXAMINATION: VITAL SIGNS: Blood pressure 139/81, heart rate 88, respiratory rate 18, 97% o n 2 L, 37.1. GENERAL: This is an elderly female, uncomfortable in bed. HEENT: Notable for moist m ucous membranes. Eye exam is negative for any icterus. CARDIAC: Patient is regular rate and rhythm . A quiet systolic murmur is noted. PULMONARY: Good respiratory effort. Clear to auscultation jeremias aterally. GASTROINTESTINAL: Abdomen is distended. The patient is diffusely tender, but markedly so in the lower quadrants. Her abdomen does feel full at the suprapubic area. MUSCULOSKELETAL: The p atient has pain in bilateral hips, has swelling, erythema, and warmth of bilateral knees. No gross p itting edema of the ankles. SKIN: Notable for mild erythema, particularly over the right knee. No other rashes are noted. NEUROLOGIC: Patient appears lethargic. PSYCHIATRIC: Withdrawn. DATA: White count 16.2, recently normal in the last 2 weeks. Hematocrit 34.1, platelets of 329. ES R of 87, creatinine of 1.8, baseline previously is normal. Pelvic CT obtained 07/02/2017, I personal ly reviewed and interpreted, shows no acute bony abnormalities. EKG, which I personally reviewed and interpreted, shows right bundle-branch block with no acute ST-T changes. ASSESSMENT AND PLAN: This is an 81-year-old female presenting with fever, lethargy, myalgias, arthra lgias. 1. Acute leukocytosis, certainly concerning for underlying smoldering infection as the patient's whi te count has climbed from normal to 16 over the course of the last 4 days. We will need to check rikki st imaging, abdominal imaging as well as gather information from her blood, urine, and joints to rule out any underlying infections. Unclear at this time how much her untreated rheumatoid arthritis is contributing. That would need to be a diagnosis of exclusion going forward. We will not start empir ic antibiotics at this time until further information is gathered. 2. Acute kidney injury presumed secondary to hypovolemia as the patient has not been taking good ora l intake; however, will need likely Whyte placement to rule out obstructive uropathy as well. Additi onally, checking urine for possible infection. Will begin with hydration and collect more information . 3. Fever. Again, worried about an underlying infectious source. Will check urine, blood cultures, and synovial fluid. 4. Diabetes mellitus. Patient's blood sugars are reasonably controlled at presentation. Will juan carlos nue to follow. 5. Hyponatremia. This appears chronic in nature. Will follow and carefully fluid resuscitate. 6. Arthralgia. Certainly concerning for possible septic arthritis; however, she does have multiple joint complaints which would be less typical. Patient is actively on treatment for tuberculosis. Mu st consider possible tuberculous joint complaints. Will loop Infectious Disease into the conversatio n after synovial fluid is obtained and further workup is obtained. 7. Hypertension. Will continue her home medications once reconciled. 8. Hyperlipidemia. Will continue her home medications once reconciled. 9. Prophylaxis with heparin subcu. 10. Diet: Diabetic. DISPOSITION: I expect greater than 2 midnights as the patient is quite elderly, presenting with feve r and leukocytosis requiring diagnostic workup. I have discussed the case with the emergency room ph ysician. Patient will be triaged to the medical-surgical floor for care. /[id number]/MODL
[2017-07-05] MEDS: HYDROCODONE/APAP 5/325 TAB PO PRN ×2 (16:57→22:52)
[2017-07-05 18:29] LABS: WBC, SYNOVIAL FLUID 2651 /mm3 (0-150)
--- NOTE | 2017-07-05 22:28 | GCON ---
[f rep st] CONSULTATION ORTHOPEDIC CONSULT REPORT DATE OF CONSULTATION: 07/05/2017 CHIEF COMPLAINT: This 81-year-old female presents with fevers and joint pain. HISTORY OF PRESENT ILLNESS: The patient presented to the emergency department today with complaints of severe all-over body pain and a history of fevers and sweats at home. The patient, who is Green[place]ic -speaking, has family members in the room who are interpreting for her. They state that she was in t emergency department 4 days ago for similar symptoms. At that point, she had a workup and was sen t home with pain medication. Once she returned home, it was felt that she developed fevers consistin g of the abovementioned symptoms. Her temperature was checked once and was 100.5. The patient's tanya ghter does report multiple episodes of soaking through her clothing and sheets due to severe sweats. She really cannot pin-point any one area of pain. She states that her skin hurts to touch. All of her joints hurt, particularly her neck. It was noted that, at one point, her right knee was warm-fee ling and was noted to be red. She, at this point, states that both knees hurt equally however. PAST MEDICAL HISTORY: 1. Rheumatoid arthritis. 2. Diabetes. 3. Hypertension. 4. Hyperlipidemia. 5. History of osteomyelitis. 6. History of cerebral aneurysm and subarachnoid hemorrhage. 7. 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 Currently 2 months into her treatment regimen. SOCIAL HISTORY: Patient is currently a nonsmoker. She does not drink alcohol or use recreational dr ugs. FAMILY HISTORY: Patient's parents are both . REVIEW OF SYSTEMS: Other than mentioned above, her review of systems are negative. PHYSICAL EXAMINATION: GENERAL: The patient is alert, calm, cooperative, resting. Does appear to be uncomfortable with any sort of movement and moans in pain. She does answer questions appropriately through her family who are interpreting for her. HEENT: Patient's head is atraumatic and normocepha lic. Extraocular movements are intact. Nares are patent. Hearing is grossly normal. LUNGS: Respi rations are easy and unlabored. NEUROLOGIC: Sensation is intact to the left lower extremity to ligh t touch to the entire leg and foot including all toes. Examination of the right leg does reveal some decreased sensation over the lower leg. She does, however, have a significant scar from a surgery h ere in the past and always has numbness there. This does not seem to be unchanged according to the remy garza. She does have normal sensation to light touch however in the foot and all toes. CARDIOVASCU LAR: Distally, patient's pulses are equal and brisk. No pitting edema is present. Capillary refill is brisk. MUSCULOSKELETAL: Examination of the patient's knees reveal mild swelling bilaterally but no definite effusion. The right knee does feel warmer then the left knee to palpation. There is so me patchy erythema over the anterior aspect of the knee but no redness, which is cellulitic in appear ance. No streaking is present. The left knee did not exhibit any redness, increased warmth, abrasio ns, lacerations or ecchymosis. The rest of the lower extremity exam reveals no redness, warmth or ir ritation to the skin. No rashes are present. With palpation of the knees even to light touch, the remy garza yells out in pain. Any sort of movement, even the initiation of range of motion, causes her t o yell in pain. This seems to be similar for both knees, ankles and when she moves her neck to repos ition her pillow. PROCEDURE: I did feel that aspirating the joint could be helpful to help rule out infection as the remy garza does have a white blood cell count of 16,000. The patient was educated on the procedure and d id agree to it. The superolateral portion of the patient's right knee was prepped with chlorhexidine swabs. Lidocaine 2% 5 mL was injected easily into the joint space for anesthesia. The area was the n re-prepped with 2 more chlorhexidine swabs. An 18-gauge needle was introduced into the joint space without any difficulty. Approximately 3 mL of straw-colored/blood-tinged fluid was aspirated. I wa s unable to aspirate any further fluid. The fluid was sent to the lab for cell count, Gram stain, cu lture and crystals. These labs are currently pending. ASSESSMENT: Orthopedic consult for an 81-year-old female with history of fevers, body aches and poss ibly a red and warm right knee. Aspiration done to help rule out infection. Results are pending. A ny treatment regarding this will be reserved until cultures and labs are completed. In the meantime, Tylenol can be used for pain. /[id number]/MODL
[2017-07-05] MEDS: HEPARIN 5,000 UNIT/0.5 ML SYR SC SCH (22:54)
[2017-07-06] MEDS: HYDROCODONE/APAP 5/325 TAB PO PRN ×4 (02:58→19:47)
[2017-07-06] MEDS: HEPARIN 5,000 UNIT/0.5 ML SYR SC SCH ×3 (05:23→21:53)
[2017-07-06 05:39] LABS: ADD DIFF? NO; ADD MORPH? NO; ADD SCAN? NO; ATYPICAL LYMPHOCYTE FLAG 20 (0-99); FRAGMENT RBC FLAG 0 (0-99); HEMOGLOBIN 10.8 g/dL (12.6-16.3); LEFT SHIFT FLG 10 (0-99); LIPEMIA HEMOLYSIS FLAG 90 (0-99); MEAN CELL HEMOGLOBIN 30.4 pg (27.9-34.1); MEAN CELL HEMOGLOBIN CONCENTR. 34.8 g/dL (32.4-36.7); MEAN CELL VOLUME 87.3 fL (81.5-99.8); MEAN PLATELET VOLUME 10.4 fL (8.7-11.7); PLATELET CLUMPS FLAG 0 (0-99); PLATELET COUNT 298 10^3/uL (150-400); RED BLOOD CELL COUNT 3.55 10^6/uL (4.18-5.33); RED CELL DISTRIBUTION WIDTH 13.4 % (11.5-15.2)
[2017-07-06 06:01] LABS: ANION GAP 13 mEq/L (8-16); CALCIUM 9.5 mg/dL (8.5-10.4); CARBON DIOXIDE 21 mEq/l (22-31); CHLORIDE 94 mEq/L (97-110); CREATININE 1.1 mg/dL (0.6-1.0); GLOMERULAR FILTRATION RATE 48; GLUCOSE 99 mg/dL (70-100); POTASSIUM 3.9 mEq/L (3.5-5.2); SODIUM 128 mEq/L (134-144)
[2017-07-06] MEDS: CALCIUM CARB W/VIT D 500 MG TAB PO SCH (07:46)
[2017-07-06] MEDS: ROSUVASTATIN CALCIUM 10 MG TAB PO SCH (07:46)
[2017-07-06] MEDS: CETIRIZINE 10 MG TAB PO SCH (07:46)
[2017-07-06] MEDS: RIFAMPIN 300 MG CAP PO SCH (07:46)
[2017-07-06] MEDS: ASPIRIN EC 81 MG TAB PO SCH (07:46)
--- NOTE | 2017-07-06 08:17 | SOAPPROG ---
SOAP Progress Note Assessment/Plan: Assessment:81 yo female with generalized body aches and pain. A right knee joint aspiration was done and labs are currently pending to rule out infection of the right knee. Labs are pending but currently no organisms are seen on gram stain. Awaiting final culture. S: Pt. complains of all over body aches. Pt. states that both knees are equally sore and this is the same achiness that she has throughout her body. At this time, there is no particular joint that is hurting her more than any other. Pain is controlled when given pain medication, but lasts only 4 hours. Pt. has not had a fever since last seen, no further sweats, CP, SOB, calf pain or new numbness/tingling. O: Pt. resting comfortably without movement, but any sort of movement does seem to cause her extreme pain. Not able to localize one area that is more bothersome. Both knee are very tender to the touch, but not warm, red or swollen. The calves are NTTP w/o swelling, redness or warmth. Distally pt. is NVI bilaterally. Plan: Continue pain medication Await culture results from right knee aspirate 07/06/17 08:08 Objective: Vital Signs Temp Pulse Resp BP Pulse Ox 36.9 C 87 18 131/57 H 95 07/06/17 07:30 07/06/17 07:30 07/06/17 07:30 07/06/17 07:30 07/06/17 07:30 Microbiology 07/05/17 17:46 Gram Stain - Final Knee - Aspirate Body Fluid Culture - Final Laboratory Results 07/06/17 05:26 07/06/17 05:26 07/05/17 07/06/17 07/07/17 05:59 05:59 05:59 Intake Total 750 Output Total 1775 Balance -1025 PT 14.3 SEC (12.0-15.0) 07/05/17 12:15 INR 1.12 (0.83-1.16) 07/05/17 12:15 ICD10 Worksheet Patient Problems: Problems Problem Status Onset Bilateral hydronephrosis Acute Bladder outlet obstruction Acute Elevated white blood cell count Acute Fever Acute Hyponatremia Acute Intractable pain Acute Renal failure Acute Rheumatoid aortitis Acute Arthritis Acute Chest pain, moderate coronary artery risk Acute Contusion of mid back Acute Right ankle sprain Acute
--- NOTE | 2017-07-06 16:13 | SOAPPROG ---
SOAP Progress Note Assessment/Plan: Assessment:Symptomatic Flare up of Rheumatoid Arthritis pain in most all joints since coming off anti RA immunosuppression drugs in favor of current anti TB medication. No evidence of septic joint or crystal arthropathy. Plan:Symptomatic pain control. Resume DMARD's when able. Please call if condition changes. Will sign off now. 07/06/17 16:10 Subjective: Hurts everywhere Objective: Vital Signs Temp Pulse Resp BP Pulse Ox 37.9 C 89 18 129/57 H 91 L 07/06/17 15:04 07/06/17 15:04 07/06/17 15:04 07/06/17 15:04 07/06/17 15:04 Microbiology 07/05/17 17:46 Gram Stain - Final Knee - Aspirate Body Fluid Culture - Final Laboratory Results 07/06/17 05:26 07/06/17 05:26 07/05/17 07/06/17 07/07/17 05:59 05:59 05:59 Intake Total 750 Output Total 1775 600 Balance -1025 -600 PT 14.3 SEC (12.0-15.0) 07/05/17 12:15 INR 1.12 (0.83-1.16) 07/05/17 12:15 No identifable effusion in any joint (hand, fingers, elbow, shoulder, Ankle, Knee and Hip bilaterally) ICD10 Worksheet Patient Problems: Problems Problem Status Onset Bilateral hydronephrosis Acute Bladder outlet obstruction Acute Elevated white blood cell count Acute Fever Acute Hyponatremia Acute Intractable pain Acute Renal failure Acute Rheumatoid aortitis Acute Arthritis Acute Chest pain, moderate coronary artery risk Acute Contusion of mid back Acute Right ankle sprain Acute
--- NOTE | 2017-07-06 17:39 | HOSPPROG ---
Hospitalist Progress Note Assessment/Plan: Assessment: 81-year-old female presents with acute total body pain in the setting of known rheumatoid arthritis, tuberculosis Plan: 1. Total body pain. Acute, new problem this provider, further workup indicated. Patient's process is certainly diffuse, most likely underlying to an inflammatory situation with a substantially elevated CRP and ESR, suspect this is secondary to a rheumatoid arthritis flare -discussed with Dr. Elodia Ojeda, she reports that right hand been will reduce the by availability of prednisone and the dosing should be increased in order to accomplish affect -will give prednisone 60 mg trial at this time, gauge effect -I feel it is less likely that this is a systemic infection and more likely that this is from untreated rheumatoid arthritis -order outside records including most recent clinic note from Dr. Laird, patient's home demonstration agent, will contact him if possible to discuss above 2. Leukocytosis. Acute, new problem this provider, further workup indicated. As mentioned above, unclear if this is secondary to inflammation or infection, has improved with IV fluids -chest x-ray demonstrates no pneumonia, personally interpreted -does not appear to have septic arthritis on aspirate of knee -blood cultures and wound cultures currently pending -send procalcitonin level to gauge whether this is from bacterial infection, sending C diff -infectious Disease consultation appreciated -continue monitor CBC 3. Hyponatremia. Acute, secondary to hypovolemia in the setting of above, given IV normal saline and level is improving, continue normal saline 4. Acute kidney injury. Secondary to hypovolemia in the setting of above, continue normal saline, continue to monitor creatinine level 5. Hydronephrosis. Acute, mild to moderate bilaterally, unclear whether this is secondary to acute urinary retention or obstructive etiology -continue Whyte catheter and monitor urine output -urinalysis demonstrates no evidence of urinary tract infection 6. 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 Ojeda, will initiate treatment Diet. Regular Prophylaxis. High risk patient, heparin subcu Code. Full code Disposition. Anticipated discharge uncertain this time, ongoing workup for unresolved illness. Subjective: Patient reports ongoing total body pain Objective: Vital Signs Temp Pulse Resp BP Pulse Ox 37.9 C 89 18 129/57 H 91 L 07/06/17 15:04 07/06/17 15:04 07/06/17 15:04 07/06/17 15:04 07/06/17 15:04 Microbiology 07/05/17 17:46 Gram Stain - Final Knee - Aspirate Body Fluid Culture - Final Laboratory Results 07/06/17 05:26 07/06/17 05:26 07/05/17 07/06/17 07/07/17 05:59 05:59 05:59 Intake Total 750 Output Total 1775 1000 Balance -1025 -1000 PT 14.3 SEC (12.0-15.0) 07/05/17 12:15 INR 1.12 (0.83-1.16) 07/05/17 12:15 - Physical Exam Constitutional: chronically ill appearing, obese, uncomfortable, No not in pain (Total body pain) Ears, Nose, Mouth, Throat: other (External lip mucositic lesion without any mucositis inside the mouth) Cardiovascular: systolic murmur (1/6 at the sternum and apex), edema (Trace bilateral lower extremity), No irregularly irregular, No tachycardia Respiratory: no respiratory distress, no rales or rhonchi, clear to auscultation , other (Poor inspiratory effort) Gastrointestinal: normoactive bowel sounds, no palpable masses, tenderness ( Mild diffusely throughout), No guarding, No distension Skin: no rashes or abrasions, no fluctuance, no induration Neurologic: AAOx3 Psychiatric: anxious ICD10 Worksheet Patient Problems: Problems Problem Status Onset Contusion of mid back Acute Right ankle sprain Acute Chest pain, moderate coronary artery risk Acute Fever Acute Arthritis Acute Renal failure Acute Hyponatremia Acute Rheumatoid aortitis Acute Elevated white blood cell count Acute Intractable pain Acute Bilateral hydronephrosis Acute Bladder outlet obstruction Acute
[2017-07-06] MEDS ORDERED: predniSONE 20 MG TAB PO SCH (17:45)
--- NOTE | 2017-07-06 17:51 | ASMTCMCOM ---
CM Note CM Note Notes: Dc needs unclear at this time, pt lives with family members who assist w/ADLs. Pt in a lot of pain today, limiting work with therapies. CM w/f Date Signed: 07/06/2017 05:50 PM Electronically Signed By:Gladys Garner RN
--- NOTE | 2017-07-06 18:36 | GCON ---
[f rep st] CONSULTATION DATE OF CONSULTATION: 07/06/2017 REFERRING PHYSICIAN: Jerad Dowell MD REASON FOR CONSULTATION: Query steroid administration in light of rifampin therapy. HISTORY OF PRESENT ILLNESS: An 81-year-old woman who is followed by my partner for latent TB on her second month of rifampin who has underlying rheumatoid arthritis in need of a biologic, who presents to the emergency room on the 05 of July with progressive confusion by her family, lethargy, fever, anorexia over the last week. Today, patient endorses fever. She also describes 4 loose stools daily for weeks. Mild abdominal pain. In addition, over the last day, she has developed severe upper lip pain. She also describes pain starting in her low back and diffusely over her lower extremities. She has some mild right knee swelling with associated warmth. Denies urinary symptoms. Patient's family takes care of her and several of them are present at the time of my exam. The patient endorses taking her rifampin on a daily basis without fail. She reports that the diarrhea is a side effect of her rifampin. PAST MEDICAL HISTORY: 1. Rheumatoid arthritis, planned hopefully to resume Xeljanz for rheumatoid arthritis. 2. Diabetes. 3. Hypertension. 4. Hyperlipidemia. 5. History of osteoarthritis. 6. Cerebral aneurysm. PAST SURGICAL HISTORY: Brain aneurysm repair and cholecystectomy. SOCIAL HISTORY: Former tobacco use. No alcohol. She has 6 children and over 50 grandchildren. FAMILY HISTORY: Reviewed and noncontributory. ALLERGIES: Penicillin causes her heart to race. MEDICATIONS: Include rifampin 600 mg daily. The patient was started on this agent on May 15, 2017. She is also on [place], aspirin 81 mg daily, calcium vitamin D 500 mg daily, ceftriaxone 1 g IV daily started on 07/05/2017, Zyrtec 10 mg daily, subcu heparin, morphine, Zofran, Crestor 10 mg daily. REVIEW OF SYSTEMS: A complete 10-point Review of Systems was performed and was negative other than what was mentioned in the HPI. PHYSICAL EXAM: VITAL SIGNS: BP 129/57, HR 89, saturation 91% on room air, temperature 37.9, which is also her T-max during her hospitalization. GENERAL: This is an elderly Latin-Domin[place] woman sitting up in a bed, somewhat agitated due to placement of IV. HEENT: She has some conjunctival injection. Oropharynx: Poor dentition. Moist mucous membranes. She has 3 ulcerative lesions on her upper lip, most consistent with HSV. NECK: Supple. No lymphadenopathy. CARDIOVASCULAR: Regular rate. CHEST: Clear to auscultation bilaterally. ABDOMEN: Soft, nontender. EXTREMITIES: She has obvious prior surgery of her right lower extremity with a well-healed surgical scar. Mildly swollen right knee, associated mild warmth. She is moving all 4 extremities equally. SKIN: No rashes. LABORATORY: White count on admission was 16.28, today is 10.1. Hematocrit 31, platelets of 298, 71% neutrophils, 11% monocytes. Her ESR is 87. Her CRP is 514. Bilirubin 2.5, sodium 128. Creatinine 1.1, on admission was 1.8. Urinalysis showed 2+ protein, 25-50 RBCs, 1-3 WBCs. Synovial fluid showed 2651 WBCs and 174,000 RBCs, 94% neutrophils with a few intracellular calcium phosphate crystals consistent with pseudogout. MICROBIOLOGY: Urine culture from 07/06 is pending. Blood cultures from 2016, are pending. Knee aspirate from 07/05, Gram stain was negative for organisms, 1+ PMNs. Cultures are no growth to date. IMAGING: CT abdomen and pelvis was performed that showed bilateral hydroureters , otherwise unremarkable. Chest x-ray was personally reviewed by me without focal infiltrates. ASSESSMENT AND PLAN: This is a complicated 81-year-old woman with rheumatoid arthritis off specific therapy who presents to the hospital complaining of a week of fever, and family complains of confusion which appears to be resolved today. In addition, the patient describes diarrhea and lip pain to me at the time of my exam. Further on admission, patient was found to have leukocytosis with associated acute renal failure. 1. Fever, leukocytosis, acute renal failure. Unclear if she has occult infection. No evidence of pneumonia, no clear evidence of urinary tract infection, although patient did have some bladder retention on imaging on admission. The patient has been on ceftriaxone since admission empirically. Blood cultures are pending. Would proceed with continuing ceftriaxone for now until blood cultures are negative at 48 hours then would discontinue. 2. Rheumatoid arthritis. Pain complex currently described by patient could be due to untreated rheumatoid arthritis. Nonetheless, the patient also underwent a joint aspirate of her knee on the right, which shows pseudogout. In regard to question posed for initial consult, probably safe to adminster steroids with rifampin 2 months into the treatment of latent tuberculosis, knowing that rifampin would decrease steroid levels. 3. 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 Swab was obtained to document. Could consider empiric therapy if worsening. 4. Diarrhea. Would rule out Clostridium difficile. 5. Elevated bilirubin. Would also obtain other liver function tests. We will continue to follow this patient along with you on a daily basis. Thank you for this consultation. /[id number]/MODL MTDD
[2017-07-06] MEDS: predniSONE 20 MG TAB PO SCH (19:47)
[2017-07-06 20:54] LABS: ALBUMIN 2.9 g/dL (3.5-5.0); BILIRUBIN-CONJUGATED 0.7 mg/dL (0.0-0.5); BILIRUBIN-UNCONJUGATED 0.3 mg/dL (0.0-1.1); TOTAL PROTEIN 5.9 g/dL (6.3-8.2)
[2017-07-06] MEDS ORDERED: ZOLPIDEM TARTRATE 5 MG TAB PO PRN (21:35)
[2017-07-07] MEDS: HEPARIN 5,000 UNIT/0.5 ML SYR SC SCH (05:07)
[2017-07-07] MEDS: HYDROCODONE/APAP 5/325 TAB PO PRN (05:07)
[2017-07-07 06:38] LABS: % IMMATURE GRANULYOCYTES 0.7 % (0.0-1.1); ABSOLUTE IMMATURE GRANULOCYTES 0.09 10^3/uL (0.00-0.10); ADD DIFF? NO; ADD MORPH? NO; ADD SCAN? NO; ATYPICAL LYMPHOCYTE FLAG 20 (0-99); FRAGMENT RBC FLAG 0 (0-99); HEMATOCRIT 28.5 % (38.0-47.0); HEMOGLOBIN 9.8 g/dL (12.6-16.3); LEFT SHIFT FLG 10 (0-99); LIPEMIA HEMOLYSIS FLAG 90 (0-99); MEAN CELL HEMOGLOBIN 30.3 pg (27.9-34.1); MEAN CELL HEMOGLOBIN CONCENTR. 34.4 g/dL (32.4-36.7); MEAN CELL VOLUME 88.2 fL (81.5-99.8); MEAN PLATELET VOLUME 10.2 fL (8.7-11.7); PLATELET CLUMPS FLAG 10 (0-99); PLATELET COUNT 331 10^3/uL (150-400); RED BLOOD CELL COUNT 3.23 10^6/uL (4.18-5.33); RED CELL DISTRIBUTION WIDTH 13.4 % (11.5-15.2)
[2017-07-07 07:45] LABS: ALANINE AMINOTRANSFERASE 32 IU/L (9-52); ALBUMIN 2.7 g/dL (3.5-5.0); ALKALINE PHOSPHATASE 94 IU/L (38-126); ANION GAP 11 mEq/L (8-16); ASPARTATE AMINOTRANSFERASE 18 IU/L (14-46); BILIRUBIN,TOTAL 0.6 mg/dL (0.1-1.4); CALCIUM 8.9 mg/dL (8.5-10.4); CARBON DIOXIDE 22 mEq/l (22-31); CHLORIDE 99 mEq/L (97-110); CREATININE 0.6 mg/dL (0.6-1.0); GLOMERULAR FILTRATION RATE > 60; GLUCOSE 128 mg/dL (70-100); POTASSIUM 3.7 mEq/L (3.5-5.2); SODIUM 132 mEq/L (134-144); TOTAL PROTEIN 5.6 g/dL (6.3-8.2)
[2017-07-07] MEDS: predniSONE 20 MG TAB PO SCH ×2 (08:13→12:18)
[2017-07-07] MEDS: RIFAMPIN 300 MG CAP PO SCH (08:13)
[2017-07-07] MEDS: ASPIRIN EC 81 MG TAB PO SCH (08:13)
[2017-07-07] MEDS: CALCIUM CARB W/VIT D 500 MG TAB PO SCH ×2 (08:13→12:21)
[2017-07-07] MEDS: CETIRIZINE 10 MG TAB PO SCH ×2 (08:13→12:21)
[2017-07-07] MEDS: ROSUVASTATIN CALCIUM 10 MG TAB PO SCH ×2 (08:13→12:20)
--- NOTE | 2017-07-07 10:14 | PCMIDPN ---
Assessment/Plan: # Fever, leukocytosis, acute renal failure. No evidence of infection, blood cx negative. Possibly due to severe RA, first day of steroids. CDIFF negative --dc ceftriaxone # Rheumatoid arthritis. 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, already crusting --pending Swab was obtained --hold off on therapy since improving Subjective: multiple c/o still with joint pain feels like medications are not at the correct time Objective: Vital Signs Temp Pulse Resp BP Pulse Ox 36.8 C 67 20 153/98 H 91 L 07/07/17 08:00 07/07/17 08:00 07/07/17 08:00 07/07/17 08:00 07/07/17 08:00 Microbiology 07/05/17 17:46 Gram Stain - Final Knee - Aspirate Body Fluid Culture - Final Laboratory Results 07/07/17 06:10 07/07/17 06:10 07/06/17 07/07/17 07/08/17 05:59 05:59 05:59 Intake Total 750 3200 Output Total 1775 1950 Balance -1025 1250 ESR 87 MM/HR (0-30) H 07/05/17 12:15 C-Reactive Protein 514.4 mg/L (<10.0) H 07/05/17 12:15 - Physical Exam General Appearance: alert, no apparent distress EENT: poor dentition Respiratory: lungs clear, No accessory muscle use Neck: supple Cardiac/Chest: regular rate, rhythm Extremities: pedal edema, swelling (R knee), other (tenderness of joints diffusely) Abdomen: non-tender, soft Pelvic Exam: hutchins Skin: No rash Neuro/Psych: alert, normal mood/affect, oriented x 3 - Time Spent With Patient Time Spent with Patient: greater than 35 minutes Time Spent with Patient: Greater than 35 minutes spent on this patients care, greater than 50% of time spent counseling, educating, and coordinating care regarding the above mentioned plan. ICD10 Worksheet Patient Problems: Problems Problem Status Onset Bilateral hydronephrosis Acute Bladder outlet obstruction Acute Elevated white blood cell count Acute Fever Acute Hyponatremia Acute Intractable pain Acute Renal failure Acute Rheumatoid aortitis Acute Arthritis Acute Chest pain, moderate coronary artery risk Acute Contusion of mid back Acute Right ankle sprain Acute
[2017-07-07] MEDS ORDERED: POLYETHYLENE GLYCOL 3350 17 GM PKT PO PRN (10:41)
[2017-07-07] MEDS ORDERED: NON-FORMULARY NEW DRUG (Cyclobenzaprine Hcl [Flexeril] 5 MG) PO PRN (10:41)
[2017-07-07] MEDS ORDERED: oxyCODONE IR 5 MG TAB PO PRN (10:41)
[2017-07-07] MEDS ORDERED: LACTULOSE 20 GM/30 ML UDCUP PO PRN (10:41)
[2017-07-07] MEDS ORDERED: BISACODYL 10 MG SUPP PR PRN (10:41)
[2017-07-07] MEDS: MAGNESIUM HYDROXIDE 30 ML UDCUP PO PRN (11:08)
[2017-07-07] MEDS: LOSARTAN POTASSIUM 50 MG TAB PO SCH (12:26)
--- NOTE | 2017-07-07 15:25 | ASMTCMCOM ---
CM Note CM Note Notes: Pt has Medicaid and Medicare part B only, if needs SNF will be under Medicaid and will need to agree to 30 day stay. Pt still being worked up, REGINA w/f. Date Signed: 07/07/2017 03:24 PM Electronically Signed By:Gladys Garner RN
[2017-07-07] MEDS: oxyCODONE IR 5 MG TAB PO PRN ×2 (16:32→20:26)
[2017-07-07] MEDS ORDERED: IOPAMIDOL (ISOVUE 370) 100 ML BTL IV ONE (17:01)
[2017-07-07] MEDS: SENNOSIDES/DOCUSATE SODIUM TAB PO SCH ×2 (17:13→20:26)
[2017-07-07] MEDS: metFORMIN HCL 500 MG TAB PO SCH (18:32)
--- NOTE | 2017-07-07 18:32 | HOSPPROG ---
Hospitalist Progress Note Assessment/Plan: Assessment: 81-year-old female presents with acute total body pain in the setting of known rheumatoid arthritis, tuberculosis Plan: 1. Suspected rheumatoid arthritis flare. Elevated inflammatory markers, pain diffusely throughout not c/w infxn -cont prednisone 60 mg trial at this time, gauge effect -I feel it is less likely that this is a systemic infection and more likely that this is from untreated rheumatoid arthritis -unable to connect w/ patient's outpt mechanical expert (Dr. Laird in [place]), rec coordinating at discharge since there had been conversation in past regarding biologics and duration of steroids should be discussed -increase pain Rx for better supportive care 2. Leukocytosis. Acute, d/w Dr. Ojeda, we both agree to stop Abx now and gauge effect -PCT elevated, unclear significance as she likely has concomitant rheum inflammation, CXR w/o infxn (personally interpreted) 3. Hyponatremia. Acute, secondary to hypovolemia in the setting of above, resolved 4. Acute kidney injury. Secondary to hypovolemia in the setting of above, resolved 5. Hydronephrosis. Acute, mild to moderate bilaterally, unclear whether this is secondary to acute urinary retention or obstructive etiology -continue Whyte catheter and monitor urine output -urinalysis demonstrates no evidence of urinary tract infection 6. 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 Headache and paresis. Acute worsening of chronic condition, new problem, further w/u indicated. Hx of aneurysm w/ clips, unable to ascertain whether clips amenable to MRI -difficult to obtain how physically mobile she is at home, and how acute the change has been, but I suspect she may have had a CVA in past, resulting in her neuro findings and recent decline in functioning (although pain from her suspected RA flare is certainly a limiting factor as well) -neuro exam demonstrating R hand paresis, R distal foot paresis, and left mouth droop -get HCT to r/o bleed, get CTA to gauge whether aneurysm recurrent -d/w family/patient, will likely require SNF at [place] w/ rehab, although family very involved at home and very supportive 8. Chronic pain w/ continuous opiate dependency. Adjust pain Rx for acute component 9. Calcium Pyrophosphate Crystals. Noted on joint aspiration, currently on steroids for above -could consider adding NSAIDs if additional pain relief warranted Diet. Regular Prophylaxis. High risk patient, lovenox 40 Code. Full code Disposition. Anticipated discharge uncertain this time, ongoing workup for unresolved illness. Subjective: reports ongoing pain, weakness in R hand Objective: Vital Signs Temp Pulse Resp BP Pulse Ox 37.3 C 82 20 127/49 H 98 07/07/17 16:00 07/07/17 16:00 07/07/17 16:00 07/07/17 16:00 07/07/17 16:00 Microbiology 07/05/17 17:46 Gram Stain - Final Knee - Aspirate Body Fluid Culture - Final Laboratory Results 07/07/17 06:10 07/07/17 06:10 07/06/17 07/07/17 07/08/17 05:59 05:59 05:59 Intake Total 750 3200 350 Output Total 1775 1950 Balance -1025 1250 350 PT 14.3 SEC (12.0-15.0) 07/05/17 12:15 INR 1.12 (0.83-1.16) 07/05/17 12:15 - Physical Exam Constitutional: chronically ill appearing, obese, uncomfortable, No not in pain (moderate pain) Cardiovascular: regular rate and rhythym, no murmur, rub, or gallop, edema ( diffuse trace edema UE/LE/face), No irregularly irregular, No tachycardia Respiratory: no respiratory distress, no rales or rhonchi, clear to auscultation Gastrointestinal: normoactive bowel sounds, soft, non-tender abdomen, no palpable masses, No distension Skin: other (lips w/ lesions, no rashes) Musculoskeletal: other (mild effusions bilat knees, tender, full extension/ flexion neck w/o pain, tenderness improved w/ massage of posterior cervical paraspinal muscles) Neurologic: AAOx3, sensation intact bilaterally, weakness (R hand 4/5, R distal foot 4/5), facial droop (left mouth) Psychiatric: interacting appropriately, not anxious, not encephalopathic, thought process linear, other (concentration /) ICD10 Worksheet Patient Problems: Problems Problem Status Onset Contusion of mid back Acute Right ankle sprain Acute Chest pain, moderate coronary artery risk Acute Fever Acute Arthritis Acute Renal failure Acute Hyponatremia Acute Rheumatoid aortitis Acute Elevated white blood cell count Acute Intractable pain Acute Bilateral hydronephrosis Acute Bladder outlet obstruction Acute
[2017-07-08 05:27] LABS: ABSOLUTE IMMATURE GRANULOCYTES 0.11 10^3/uL (0.00-0.10); ADD DIFF? NO; ADD MORPH? NO; ADD SCAN? NO; ATYPICAL LYMPHOCYTE FLAG 30 (0-99); FRAGMENT RBC FLAG 0 (0-99); HEMATOCRIT 28.3 % (38.0-47.0); HEMOGLOBIN 9.5 g/dL (12.6-16.3); LEFT SHIFT FLG 0 (0-99); LIPEMIA HEMOLYSIS FLAG 80 (0-99); MEAN CELL HEMOGLOBIN 30.1 pg (27.9-34.1); MEAN CELL HEMOGLOBIN CONCENTR. 33.6 g/dL (32.4-36.7); MEAN CELL VOLUME 89.6 fL (81.5-99.8); MEAN PLATELET VOLUME 10.2 fL (8.7-11.7); PLATELET CLUMPS FLAG 0 (0-99); PLATELET COUNT 379 10^3/uL (150-400); RED BLOOD CELL COUNT 3.16 10^6/uL (4.18-5.33); RED CELL DISTRIBUTION WIDTH 13.7 % (11.5-15.2)
[2017-07-08] MEDS: oxyCODONE IR 5 MG TAB PO PRN ×3 (06:01→17:45)
[2017-07-08 06:17] LABS: ALANINE AMINOTRANSFERASE 29 IU/L (9-52); ALBUMIN 2.5 g/dL (3.5-5.0); ALKALINE PHOSPHATASE 85 IU/L (38-126); ANION GAP 8 mEq/L (8-16); ASPARTATE AMINOTRANSFERASE 17 IU/L (14-46); BILIRUBIN,TOTAL 0.4 mg/dL (0.1-1.4); CALCIUM 9.4 mg/dL (8.5-10.4); CARBON DIOXIDE 26 mEq/l (22-31); CHLORIDE 100 mEq/L (97-110); CREATININE 0.6 mg/dL (0.6-1.0); GLOMERULAR FILTRATION RATE > 60; GLUCOSE 99 mg/dL (70-100); POTASSIUM 3.7 mEq/L (3.5-5.2); SODIUM 134 mEq/L (134-144); TOTAL PROTEIN 5.4 g/dL (6.3-8.2)
[2017-07-08] MEDS: RIFAMPIN 300 MG CAP PO SCH (07:57)
[2017-07-08] MEDS: metFORMIN HCL 500 MG TAB PO SCH ×2 (10:48→19:10)
[2017-07-08] MEDS: predniSONE 20 MG TAB PO SCH (10:49)
[2017-07-08] MEDS: CALCIUM CARB W/VIT D 500 MG TAB PO SCH (10:49)
[2017-07-08] MEDS: CETIRIZINE 10 MG TAB PO SCH (10:49)
[2017-07-08] MEDS: ROSUVASTATIN CALCIUM 10 MG TAB PO SCH (10:49)
[2017-07-08] MEDS: LOSARTAN POTASSIUM 50 MG TAB PO SCH (10:49)
[2017-07-08] MEDS: ASPIRIN EC 81 MG TAB PO SCH (10:50)
[2017-07-08] MEDS: ENOXAPARIN 40 MG/0.4 ML SYR SC SCH (10:51)
[2017-07-08] MEDS: SENNOSIDES/DOCUSATE SODIUM TAB PO SCH ×2 (11:13→20:03)
--- NOTE | 2017-07-08 11:33 | SOAPPROG ---
SOAP Progress Note Assessment/Plan: Assessment: 81-year-old female presents with acute total body pain in the setting of known rheumatoid arthritis, tuberculosis Plan: 1. Suspected rheumatoid arthritis flare. Elevated inflammatory markers, pain diffusely not c/w infxn -cont prednisone 60 mg trial at this time, seems to be helping, recheck ESR -try to contact primary rheum tomorrow (family says saw rheum about 2 months ago ) -change pain Rx to scheduled 2. Leukocytosis. Acute, d/w Dr. Ojeda -PCT elevated, unclear significance as she likely has concomitant rheum inflammation -CXR w/o infxn 3. Hyponatremia. Acute, secondary to hypovolemia in the setting of above, resolved 4. Acute kidney injury. Secondary to hypovolemia in the setting of above, resolved 5. Hydronephrosis. 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 -Cont on tx 7. Headache and paresis, improved today per family and pt. -revwd CT/CTA with family, no acute changes and sxs improving -d/w family/patient, recommend SNF at [place] w/ rehab short term, amenable to this and asked CM to start processing 8. Chronic pain w/ continuous opiate dependency. -Adjust pain Rx, scheduled 9. Calcium Pyrophosphate Crystals. 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 Ojeda 11. Type 2 DM -likely neuropathy also, trial gabapentin -check hgba1c 12. anemia -likely chronic disease -check iron studies for completeness Diet. Regular Prophylaxis. High risk patient, lovenox sq Code. Full code PCP- Dr Alexander/[facility] Disposition. Anticipated discharge uncertain at this time, pending SNF eval 07/08/17 19:50 Subjective: Family thinks she is improved today, smiling a bit more. She still says 'pain everywhere' talita 'needles in feet'. Denies SOB/CP. Hutchins in place. Lives with family on 2nd floor, trying to get a first floor apt. Family would like to explore SNF short term. Objective: Vital Signs Temp Pulse Resp BP Pulse Ox 98.2 F 61 16 147/67 H 95 07/08/17 08:00 07/08/17 08:00 07/08/17 08:00 07/08/17 10:49 07/08/17 08:00 Microbiology 07/06/17 05:44 Urine Culture - Final Urine,Catheterized 07/05/17 17:46 Gram Stain - Final Knee - Aspirate Body Fluid Culture - Final Laboratory Results 07/08/17 04:46 07/08/17 04:46 07/06/17 07/07/17 07/08/17 11:59 11:59 11:59 Intake Total 750 3200 750 Output Total 2375 1350 1650 Balance -1625 1850 -900 PT 14.3 SEC (12.0-15.0) 07/05/17 12:15 INR 1.12 (0.83-1.16) 07/05/17 12:15 - Pending Discharge Pending Discharge Within 24 Hours: No Physical Exam - Physical Exam General Appearance: alert, no apparent distress, other (frail) Respiratory: lungs clear, normal breath sounds, No respiratory distress Cardiac/Chest: regular rate, rhythm, No edema Skin: warm/dry, other (hutchins in place) Neuro/Psych: alert, depressed affect, No cognition abnormalities, No speech abnormalities ICD10 Worksheet Patient Problems: Problems Problem Status Onset Bilateral hydronephrosis Acute Bladder outlet obstruction Acute Elevated white blood cell count Acute Fever Acute Hyponatremia Acute Intractable pain Acute Renal failure Acute Rheumatoid aortitis Acute Arthritis Acute Chest pain, moderate coronary artery risk Acute Contusion of mid back Acute Right ankle sprain Acute
[2017-07-08] MEDS: MAGNESIUM HYDROXIDE 30 ML UDCUP PO PRN (12:49)
[2017-07-08] MEDS: oxyCODONE IR 5 MG TAB PO SCH ×2 (15:46→20:02)
--- NOTE | 2017-07-08 16:23 | ASMTCMCOM ---
CM Note CM Note Notes: Spoke w/pt and family re; dc snf. Pt has medicaid, agreed to the 30 day stay. Family requests that referral be sent to [facility] as that is where many family members work, they state she had been accepted there once before but did not go. CM faxed [facility]-100 to [facility] and referral to [facility]. Family understands state needs to come and assess pt, CM w/f. Date Signed: 07/08/2017 04:23 PM Electronically Signed By:Gladys Garner RN
[2017-07-08] MEDS: GABAPENTIN 100 MG CAP PO SCH (17:46)
[2017-07-09 05:34] LABS: ABSOLUTE IMMATURE GRANULOCYTES 0.22 10^3/uL (0.00-0.10); ADD DIFF? NO; ADD MORPH? NO; ADD SCAN? NO; ATYPICAL LYMPHOCYTE FLAG 50 (0-99); FRAGMENT RBC FLAG 0 (0-99); HEMATOCRIT 28.1 % (38.0-47.0); HEMOGLOBIN 9.5 g/dL (12.6-16.3); LEFT SHIFT FLG 10 (0-99); LIPEMIA HEMOLYSIS FLAG 90 (0-99); MEAN CELL HEMOGLOBIN 30.4 pg (27.9-34.1); MEAN CELL HEMOGLOBIN CONCENTR. 33.8 g/dL (32.4-36.7); MEAN CELL VOLUME 89.8 fL (81.5-99.8); MEAN PLATELET VOLUME 9.7 fL (8.7-11.7); PLATELET CLUMPS FLAG 0 (0-99); PLATELET COUNT 416 10^3/uL (150-400); RED BLOOD CELL COUNT 3.13 10^6/uL (4.18-5.33); RED CELL DISTRIBUTION WIDTH 13.6 % (11.5-15.2)
[2017-07-09 05:37] LABS: ALANINE AMINOTRANSFERASE 27 IU/L (9-52); ALBUMIN 2.7 g/dL (3.5-5.0); ALKALINE PHOSPHATASE 84 IU/L (38-126); ANION GAP 10 mEq/L (8-16); ASPARTATE AMINOTRANSFERASE 17 IU/L (14-46); BILIRUBIN,TOTAL 0.5 mg/dL (0.1-1.4); CALCIUM 9.4 mg/dL (8.5-10.4); CARBON DIOXIDE 27 mEq/l (22-31); CHLORIDE 102 mEq/L (97-110); CREATININE 0.6 mg/dL (0.6-1.0); GLOMERULAR FILTRATION RATE > 60; GLUCOSE 99 mg/dL (70-100); POTASSIUM 3.8 mEq/L (3.5-5.2); SODIUM 139 mEq/L (134-144); TOTAL PROTEIN 5.7 g/dL (6.3-8.2)
[2017-07-09 05:46] LABS: % SATURATION 23 % (20-55); TOTAL IRON BINDING CAPACITY 197 ug/dL (260-490)
[2017-07-09] MEDS: GABAPENTIN 100 MG CAP PO SCH ×2 (06:34→15:52)
[2017-07-09 07:07] LABS: SEDIMENTATION RATE 122 MM/HR (0-30)
[2017-07-09] MEDS: RIFAMPIN 300 MG CAP PO SCH (08:03)
[2017-07-09 09:22] LABS: HEMOGLOBIN A1C 6.4 % (4.0-6.0)
[2017-07-09] MEDS: FERROUS SULFATE 140 MG TAB.ER PO SCH ×2 (10:31→10:39)
[2017-07-09] MEDS: oxyCODONE IR 5 MG TAB PO SCH ×2 (10:31→20:03)
[2017-07-09] MEDS: LOSARTAN POTASSIUM 50 MG TAB PO SCH (10:34)
[2017-07-09] MEDS: CHOLECALCIFEROL VIT D3 2,000 UNITS TAB/CAP PO SCH ×2 (10:35)
[2017-07-09] MEDS: CALCIUM CARB W/VIT D 500 MG TAB PO SCH ×3 (10:35→20:04)
[2017-07-09] MEDS: metFORMIN HCL 500 MG TAB PO SCH ×2 (10:36→17:41)
[2017-07-09] MEDS: ENOXAPARIN 40 MG/0.4 ML SYR SC SCH (10:37)
[2017-07-09] MEDS: CETIRIZINE 10 MG TAB PO SCH (10:37)
[2017-07-09] MEDS: predniSONE 20 MG TAB PO SCH (10:37)
[2017-07-09] MEDS: ROSUVASTATIN CALCIUM 10 MG TAB PO SCH (10:37)
[2017-07-09] MEDS: SENNOSIDES/DOCUSATE SODIUM TAB PO SCH ×2 (10:38→20:04)
[2017-07-09] MEDS: POLYETHYLENE GLYCOL 3350 17 GM PKT PO SCH (10:38)
[2017-07-09] MEDS: ASPIRIN EC 81 MG TAB PO SCH (10:46)
--- NOTE | 2017-07-09 14:04 | SOAPPROG ---
SOAP Progress Note Assessment/Plan: Assessment: 81-year-old female presents with acute total body pain in the setting of known rheumatoid arthritis, tuberculosis Plan: 1. Suspected rheumatoid arthritis flare. Elevated inflammatory markers, pain diffusely not c/w infxn -cont prednisone 60 mg, seems to be helping, ESR higher today but sxs improving -continue with scheduled pain med, trial gabapentin for neuropathic pain too 2. Leukocytosis. -PCT elevated, unclear significance as she likely has concomitant rheum inflammation -CXR w/o infxn -no indication of infectious cause, cultures neg to date 3. Hyponatremia. Acute, secondary to hypovolemia in the setting of above, resolved 4. Acute kidney injury. Secondary to hypovolemia in the setting of above, resolved 5. Hydronephrosis. Acute, mild to moderate bilaterally, unclear whether this is secondary to acute urinary retention or obstructive etiology -continue Whyte catheter and monitor urine output -no evidence of urinary tract infection 6. 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 -neg PCR 7. Headache and paresis, resolved -CT/CTA, no acute changes and sxs improving/resolved per family 8. Chronic pain w/ continuous opiate dependency. -doing a bit better with change to med regimen -SNF, to start processing 9. Calcium Pyrophosphate Crystals. 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 Ojeda -will FU with ID as o/p 11. Type 2 DM -likely neuropathy also, trial gabapentin -hgba1c low, OK to liberalize diet a bit -holding metformin bs of CT scans 12. anemia -likely chronic disease -low nl iron Diet. Regular Prophylaxis. High risk patient, lovenox sq Code. Full code (no med POA, family is working on this). Encouraged family to talk with her re her wishes, code status and ? depression. PCP- Dr Alexander/[facility] Disposition. Anticipated discharge uncertain at this time, pending SNF eval. Subjective: Says body pain improved but stil has 'needles in feet.' Several family members in room, they think she seems a bit better today. Say she has been talking about family members, but doesn't seem confused. Objective: Vital Signs Temp Pulse Resp BP Pulse Ox 98.2 F 68 12 148/63 H 98 07/09/17 08:00 07/09/17 08:00 07/09/17 08:00 07/09/17 10:34 07/09/17 08:00 Microbiology 07/05/17 17:46 Gram Stain - Final Knee - Aspirate Body Fluid Culture - Final 07/06/17 05:44 Urine Culture - Final Urine,Catheterized Laboratory Results 07/09/17 05:08 07/09/17 05:08 07/08/17 07/09/17 07/10/17 11:59 11:59 11:59 Intake Total 750 500 Output Total 1650 700 Balance -900 -200 PT 14.3 SEC (12.0-15.0) 07/05/17 12:15 INR 1.12 (0.83-1.16) 07/05/17 12:15 - Pending Discharge Pending Discharge Within 24 Hours: No Physical Exam - Physical Exam General Appearance: alert, no apparent distress Respiratory: lungs clear, normal breath sounds Cardiac/Chest: regular rate, rhythm, No edema Abdomen: normal bowel sounds, non-tender, soft, No distended, No guarding Skin: warm/dry Neuro/Psych: alert, normal mood/affect, No cognition abnormalities, No speech abnormalities ICD10 Worksheet Patient Problems: Problems Problem Status Onset Bilateral hydronephrosis Acute Bladder outlet obstruction Acute Elevated white blood cell count Acute Fever Acute Hyponatremia Acute Intractable pain Acute Renal failure Acute Rheumatoid aortitis Acute Arthritis Acute Chest pain, moderate coronary artery risk Acute Contusion of mid back Acute Right ankle sprain Acute
[2017-07-09 14:29] LABS: SPECIMEN SOURCE LIP
--- NOTE | 2017-07-09 16:14 | ASMTCMCOM ---
CM Note CM Note Notes: Received a call from Jaye at [facility] #[phone], all [facility] paperwork received, Jaye to be on site on Sunday to assess patient for SNF. Met with patient and family regarding discharge poc. #1 choice remains [facility]. Spoke with El at re: referral, no female bed available at this time. Dtr states her sister works at [facility] and they plan on talking with [facility] further. Case Management notified family on other facility choices in [place], they would like to discuss the second choice further before CM sends out referral. Case Management will follow-up on Sunday. Spiritual Care to see patient and family and assist with [facility]POA paperwork. Date Signed: 07/09/2017 04:13 PM Electronically Signed By:Rama Varela RN
[2017-07-10] MEDS: oxyCODONE IR 5 MG TAB PO PRN ×3 (02:23→18:27)
[2017-07-10] MEDS: GABAPENTIN 100 MG CAP PO SCH ×2 (06:10→15:31)
[2017-07-10] MEDS: LOSARTAN POTASSIUM 50 MG TAB PO SCH (06:11)
[2017-07-10] MEDS: RIFAMPIN 300 MG CAP PO SCH (08:13)
[2017-07-10] MEDS: metFORMIN HCL 500 MG TAB PO SCH ×2 (08:33→18:28)
[2017-07-10] MEDS: oxyCODONE IR 5 MG TAB PO SCH ×2 (10:29→20:13)
[2017-07-10] MEDS: ASPIRIN EC 81 MG TAB PO SCH (12:41)
[2017-07-10] MEDS: CALCIUM CARB W/VIT D 500 MG TAB PO SCH ×2 (12:42→20:13)
[2017-07-10] MEDS: SENNOSIDES/DOCUSATE SODIUM TAB PO SCH ×2 (12:44→20:58)
[2017-07-10] MEDS: FERROUS SULFATE 140 MG TAB.ER PO SCH (12:44)
[2017-07-10] MEDS: predniSONE 20 MG TAB PO SCH (12:44)
[2017-07-10] MEDS: ROSUVASTATIN CALCIUM 10 MG TAB PO SCH (12:45)
[2017-07-10] MEDS: CETIRIZINE 10 MG TAB PO SCH (12:45)
[2017-07-10] MEDS: CHOLECALCIFEROL VIT D3 2,000 UNITS TAB/CAP PO SCH (12:46)
[2017-07-10] MEDS: POLYETHYLENE GLYCOL 3350 17 GM PKT PO SCH (12:55)
[2017-07-10] MEDS: ENOXAPARIN 40 MG/0.4 ML SYR SC SCH (12:56)
--- NOTE | 2017-07-10 16:45 | ASMTCMCOM ---
CM Note CM Note Notes: Jaye from [facility] (P#: [phone]) came in to meet w/ pt. Pt scored a 8-9 on GDS on the ULTC-100, triggering a PASRR. CM recieved a call from Kathy Hayes and she is approving pt for 60 days for SNF. CM spoke w/ daughter regarding d/c POC. Daughter is agreeable to CM making a referral to [facility]. CM faxed over referral to . CM to follow. Date Signed: 07/10/2017 04:44 PM Electronically Signed By:ABDIRAHMAN Landaverde
--- NOTE | 2017-07-10 19:10 | SOAPPROG ---
SOAP Progress Note Assessment/Plan: Assessment: 81-year-old female presents with acute total body pain in the setting of known rheumatoid arthritis, tuberculosis Plan: 1. Suspected rheumatoid arthritis flare. Elevated inflammatory markers, pain diffusely not c/w infxn -cont prednisone 60 mg, helping, and try start taper tomorrow -continue with trial scheduled pain med, gabapentin for neuropathic pain too 2. Leukocytosis. -less than at admission, unclear significance as she likely has concomitant rheum inflammation -CXR w/o infxn -no indication of infectious cause, cultures neg to date 3. Hyponatremia. Acute, secondary to hypovolemia in the setting of above, resolved 4. Acute kidney injury. Secondary to hypovolemia in the setting of above, resolved 5. Hydronephrosis. Acute, mild to moderate bilaterally, unclear whether this is secondary to acute urinary retention or obstructive etiology -continue Whyte catheter and monitor urine output -no evidence of urinary tract infection 6. 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 -neg PCR 7. Headache and paresis, resolved -CT/CTA, no acute changes and sxs improving/resolved per family 8. Chronic pain w/ continuous opiate dependency. -doing better with change to med regimen -SNF placement pending 9. Calcium Pyrophosphate Crystals. 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 Ojeda -will FU with ID as o/p 11. Type 2 DM -likely neuropathy also, trial gabapentin -hgba1c low, OK to liberalize diet a bit -restart metformin 12. anemia -likely chronic disease -low nl iron -po iron Diet. Regular Prophylaxis. High risk patient, lovenox sq Code. Full code (no med POA, family is working on this). Encouraged family yesterday to talk with her re her wishes, code status. PCP- [facility]. Anticipated discharge pending SNF placement. Subjective: 1 daughter in room, both say she is doing much better today, pain improving. Seems more alert/active today. Denies abd pain/cp/SOB. Objective: Vital Signs Temp Pulse Resp BP Pulse Ox 98.2 F 70 14 170/56 H 95 07/10/17 16:00 07/10/17 16:00 07/10/17 16:00 07/10/17 16:00 07/10/17 16:00 Microbiology 07/05/17 17:46 Gram Stain - Final Knee - Aspirate Body Fluid Culture - Final Laboratory Results 07/09/17 05:08 07/09/17 05:08 07/09/17 07/10/17 07/11/17 11:59 11:59 11:59 Intake Total 500 Output Total 700 1250 Balance -200 -1250 PT 14.3 SEC (12.0-15.0) 07/05/17 12:15 INR 1.12 (0.83-1.16) 07/05/17 12:15 Physical Exam - Physical Exam General Appearance: WD/WN, alert, no apparent distress Respiratory: lungs clear, normal breath sounds Cardiac/Chest: regular rate, rhythm, No edema Neuro/Psych: alert, normal mood/affect, No cognition abnormalities, No speech abnormalities, No depressed affect ICD10 Worksheet Patient Problems: Problems Problem Status Onset Bilateral hydronephrosis Acute Bladder outlet obstruction Acute Elevated white blood cell count Acute Fever Acute Hyponatremia Acute Intractable pain Acute Renal failure Acute Rheumatoid aortitis Acute Arthritis Acute Chest pain, moderate coronary artery risk Acute Contusion of mid back Acute Right ankle sprain Acute
[2017-07-11 05:40] LABS: ADD DIFF? YES; ADD MORPH? NO; ADD SCAN? NO; ATYPICAL LYMPHOCYTE FLAG 40 (0-99); FRAGMENT RBC FLAG 0 (0-99); HEMATOCRIT 29.4 % (38.0-47.0); HEMOGLOBIN 9.7 g/dL (12.6-16.3); LEFT SHIFT FLG 30 (0-99); LIPEMIA HEMOLYSIS FLAG 80 (0-99); MEAN CELL HEMOGLOBIN 29.9 pg (27.9-34.1); MEAN CELL VOLUME 90.7 fL (81.5-99.8); MEAN PLATELET VOLUME 9.4 fL (8.7-11.7); PLATELET CLUMPS FLAG 0 (0-99); PLATELET COUNT 510 10^3/uL (150-400); RED BLOOD CELL COUNT 3.24 10^6/uL (4.18-5.33); RED CELL DISTRIBUTION WIDTH 13.9 % (11.5-15.2)
[2017-07-11 05:56] LABS: ANION GAP 6 mEq/L (8-16); CALCIUM 9.4 mg/dL (8.5-10.4); CARBON DIOXIDE 31 mEq/l (22-31); CHLORIDE 99 mEq/L (97-110); CREATININE 0.6 mg/dL (0.6-1.0); GLOMERULAR FILTRATION RATE > 60; GLUCOSE 95 mg/dL (70-100); POTASSIUM 3.9 mEq/L (3.5-5.2); SODIUM 136 mEq/L (134-144)
[2017-07-11 07:40] LABS: HYPOCHROMIA 1+; MICROCYTES 1+; PLATELET ESTIMATE INCREASED (ADEQ); POLYCHROMASIA 1+
[2017-07-11] MEDS: GABAPENTIN 100 MG CAP PO SCH ×2 (07:56→15:15)
[2017-07-11] MEDS: RIFAMPIN 300 MG CAP PO SCH (07:56)
[2017-07-11] MEDS: oxyCODONE IR 5 MG TAB PO SCH ×2 (07:57→20:30)
[2017-07-11] MEDS: ROSUVASTATIN CALCIUM 10 MG TAB PO SCH (07:58)
[2017-07-11] MEDS: LOSARTAN POTASSIUM 50 MG TAB PO SCH (07:58)
[2017-07-11] MEDS: CETIRIZINE 10 MG TAB PO SCH (07:59)
[2017-07-11] MEDS: ASPIRIN EC 81 MG TAB PO SCH (07:59)
[2017-07-11] MEDS: metFORMIN HCL 500 MG TAB PO SCH ×2 (07:59→17:17)
[2017-07-11] MEDS: predniSONE 20 MG TAB PO SCH (08:00)
[2017-07-11] MEDS: FERROUS SULFATE 140 MG TAB.ER PO SCH (08:00)
[2017-07-11] MEDS: CALCIUM CARB W/VIT D 500 MG TAB PO SCH ×2 (08:00→20:30)
[2017-07-11] MEDS: POLYETHYLENE GLYCOL 3350 17 GM PKT PO SCH (08:01)
[2017-07-11] MEDS: ENOXAPARIN 40 MG/0.4 ML SYR SC SCH (08:01)
[2017-07-11] MEDS: CHOLECALCIFEROL VIT D3 2,000 UNITS TAB/CAP PO SCH (08:01)
[2017-07-11] MEDS: SENNOSIDES/DOCUSATE SODIUM TAB PO SCH ×2 (08:04→20:31)
--- NOTE | 2017-07-11 17:25 | SOAPPROG ---
SOAP Progress Note Assessment/Plan: Assessment: 81-year-old female presents with acute total body pain in the setting of known rheumatoid arthritis, tuberculosis Plan: 1. Suspected rheumatoid arthritis flare. Elevated inflammatory markers, pain diffusely not c/w infxn -cont prednisone, taper start today to 40 mg -continue with trial scheduled pain med, gabapentin for neuropathic pain too -working with PT/OT -consider reconsult ortho to re-eval shoulder -xray lumbar to ensure no compression fracture 2. Leukocytosis. -less than at admission, unclear significance as she likely has concomitant rheum inflammation -CXR w/o infxn -no indication of infectious cause, cultures neg to date 3. Hyponatremia. Acute, secondary to hypovolemia in the setting of above, resolved 4. Acute kidney injury. Secondary to hypovolemia in the setting of above, resolved 5. Hydronephrosis. Acute, mild to moderate bilaterally, unclear whether this is secondary to acute urinary retention or obstructive etiology -continue Whyte catheter and monitor urine output -no evidence of urinary tract infection 6. 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 -neg PCR 7. Headache and paresis, resolved -CT/CTA, no acute changes and sxs improving/resolved per family 8. Chronic pain w/ continuous opiate dependency. -doing better with change to med regimen -SNF placement pending 9. Calcium Pyrophosphate Crystals. 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 Ojeda -will FU with ID as o/p 11. Type 2 DM -likely neuropathy also, trial gabapentin -hgba1c low, OK to liberalize diet a bit - metformin 12. anemia -likely chronic disease -low nl iron -po iron Diet. Regular Prophylaxis. High risk patient, lovenox sq Code. Full code (no med POA, family is working on this). PCP- Dr Alexander/[facility] Disposition. Anticipated discharge pending SNF placement, eal planned Sun PM 07/12/17 07:54 Subjective: Pain in legs improving, mainly has pain around waist (? from sitting and position) and R shoulder/arm. No n/v/d/SOB. Objective: Vital Signs Temp Pulse Resp BP Pulse Ox 98 F 75 18 181/77 H 97 07/11/17 15:10 07/11/17 15:10 07/11/17 15:10 07/11/17 15:10 07/11/17 15:10 Microbiology 07/05/17 17:46 Gram Stain - Final Knee - Aspirate Body Fluid Culture - Final 07/05/17 19:34 Blood Culture - Final Blood Laboratory Results 07/11/17 05:20 07/11/17 05:20 07/10/17 07/11/17 07/12/17 11:59 11:59 11:59 Intake Total 340 300 Output Total 1250 1100 1000 Balance -1250 -760 -700 PT 14.3 SEC (12.0-15.0) 07/05/17 12:15 INR 1.12 (0.83-1.16) 07/05/17 12:15 Physical Exam - Physical Exam General Appearance: alert, no apparent distress Respiratory: lungs clear, normal breath sounds, No respiratory distress Cardiac/Chest: regular rate, rhythm, No edema Abdomen: soft, No distended, No guarding, No rebound Neuro/Psych: alert, normal mood/affect, No cognition abnormalities, No speech abnormalities ICD10 Worksheet Patient Problems: Problems Problem Status Onset Bilateral hydronephrosis Acute Bladder outlet obstruction Acute Elevated white blood cell count Acute Fever Acute Hyponatremia Acute Intractable pain Acute Renal failure Acute Rheumatoid aortitis Acute Arthritis Acute Chest pain, moderate coronary artery risk Acute Contusion of mid back Acute Right ankle sprain Acute
--- NOTE | 2017-07-11 17:56 | ASMTCMCOM ---
CM Note CM Note Notes: Received call from Rossana Lewis [phone], pt's PASRR triggered a level 2 d/t depression. She will come to meet w/pt on Sunday at 4pm, CM notified Bri at [facility], Dr. Cierra lowery. Date Signed: 07/11/2017 05:55 PM Electronically Signed By:Gladys Garner RN
[2017-07-12] MEDS: GABAPENTIN 100 MG CAP PO SCH ×2 (08:05→14:25)
[2017-07-12] MEDS: CALCIUM CARB W/VIT D 500 MG TAB PO SCH ×2 (08:05→20:55)
[2017-07-12] MEDS: FERROUS SULFATE 140 MG TAB.ER PO SCH (08:06)
[2017-07-12] MEDS: oxyCODONE IR 5 MG TAB PO SCH ×2 (08:06→20:55)
[2017-07-12] MEDS: SENNOSIDES/DOCUSATE SODIUM TAB PO SCH ×2 (08:06→20:55)
[2017-07-12] MEDS: RIFAMPIN 300 MG CAP PO SCH (08:07)
[2017-07-12] MEDS: ROSUVASTATIN CALCIUM 10 MG TAB PO SCH (08:07)
[2017-07-12] MEDS: metFORMIN HCL 500 MG TAB PO SCH ×2 (08:07→17:10)
[2017-07-12] MEDS: CETIRIZINE 10 MG TAB PO SCH (08:07)
[2017-07-12] MEDS: predniSONE 20 MG TAB PO SCH (08:07)
[2017-07-12] MEDS: CHOLECALCIFEROL VIT D3 2,000 UNITS TAB/CAP PO SCH (08:07)
[2017-07-12] MEDS: LOSARTAN POTASSIUM 50 MG TAB PO SCH (08:07)
[2017-07-12] MEDS: ENOXAPARIN 40 MG/0.4 ML SYR SC SCH (08:09)
[2017-07-12] MEDS: POLYETHYLENE GLYCOL 3350 17 GM PKT PO SCH (08:14)
--- NOTE | 2017-07-12 08:27 | HOSPPROG ---
Hospitalist Progress Note Assessment/Plan: Assessment: 81-year-old female presents with acute total body pain in the setting of known rheumatoid arthritis, tuberculosis Today is my 1st encounter with the patient. Chart reviewed. * Rheumatoid arthritis flare on prednisone/ taper started yesterday/40 mg c/o pain to right shoulder, low back/ good mobility w shoulder x ray now of low back also, has right hip pain/will get an xray of this in addition *Leukocytosis resolved *hyponatremia resolved *gait instability w multiple falls at home family is very supportive they care for her 24 hours a day *left 10th rib fx not c/o pain from this *PAPA resolved/ creat is 0.6 *Latent TB rifampin for two months with stop date 09/05/17 f/u w ID, Dr Plasencia in 1 month *DM 2 on Metformin A1c is 6.4 *anemia po iron *dvt prophylaxis: LMWH *Plan: f/u with xrays, hopefully can go to [facility] tomorrow Subjective: Patient is c/o pain on right shoulder, low back, both legs. Objective: Vital Signs Temp Pulse Resp BP Pulse Ox 36.9 C 67 18 168/55 H 97 07/12/17 08:00 07/12/17 08:00 07/12/17 08:00 07/12/17 08:07 07/12/17 08:00 Microbiology 07/05/17 17:46 Gram Stain - Final Knee - Aspirate Body Fluid Culture - Final 07/05/17 19:34 Blood Culture - Final Blood Laboratory Results 07/11/17 05:20 07/11/17 05:20 07/11/17 07/12/17 07/13/17 05:59 05:59 05:59 Intake Total 340 550 Output Total 1100 1450 Balance -760 -900 PT 14.3 SEC (12.0-15.0) 07/05/17 12:15 INR 1.12 (0.83-1.16) 07/05/17 12:15 - Physical Exam Constitutional: chronically ill appearing, uncomfortable Eyes: PERRL Ears, Nose, Mouth, Throat: hearing normal Cardiovascular: regular rate and rhythym Respiratory: no respiratory distress, reduced air movement Gastrointestinal: normoactive bowel sounds Skin: warm Musculoskeletal: muscular tenderness, generalized weakness Neurologic: AAOx3 Psychiatric: interacting appropriately, other (met with her via the lane attendant) ICD10 Worksheet Patient Problems: Problems Problem Status Onset Bilateral hydronephrosis Acute Bladder outlet obstruction Acute Elevated white blood cell count Acute Fever Acute Hyponatremia Acute Intractable pain Acute Renal failure Acute Rheumatoid aortitis Acute Arthritis Acute Chest pain, moderate coronary artery risk Acute Contusion of mid back Acute Right ankle sprain Acute
[2017-07-12] MEDS: CYCLOBENZAPRINE 10 MG TAB PO PRN (14:25)
--- NOTE | 2017-07-12 17:26 | ASMTCMCOM ---
CM Note CM Note Notes: Received phone call from Jo Ann from [facility], pt does not need level II pasrr as snf is for short term, pt can dc tomorrow if medically stable. Bri coreas notified and REGINA discussed w/dtr Mitra. Date Signed: 07/12/2017 05:26 PM Electronically Signed By:Gladys Garner RN
[2017-07-13] MEDS: GABAPENTIN 100 MG CAP PO SCH (05:54)
[2017-07-13] MEDS: oxyCODONE IR 5 MG TAB PO PRN ×2 (05:54→11:52)
[2017-07-13] MEDS: metFORMIN HCL 500 MG TAB PO SCH (07:53)
[2017-07-13] MEDS: CYCLOBENZAPRINE 10 MG TAB PO PRN (07:54)
[2017-07-13] MEDS: SENNOSIDES/DOCUSATE SODIUM TAB PO SCH (07:55)
[2017-07-13] MEDS: POLYETHYLENE GLYCOL 3350 17 GM PKT PO SCH (07:55)
[2017-07-13] MEDS: RIFAMPIN 300 MG CAP PO SCH (07:56)
[2017-07-13] MEDS: CETIRIZINE 10 MG TAB PO SCH (07:56)
[2017-07-13] MEDS: CALCIUM CARB W/VIT D 500 MG TAB PO SCH (07:56)
[2017-07-13] MEDS: ASPIRIN EC 81 MG TAB PO SCH (07:56)
[2017-07-13] MEDS: FERROUS SULFATE 140 MG TAB.ER PO SCH (07:57)
[2017-07-13] MEDS: predniSONE 20 MG TAB PO SCH (07:57)
[2017-07-13] MEDS: ROSUVASTATIN CALCIUM 10 MG TAB PO SCH (07:57)
[2017-07-13] MEDS: CHOLECALCIFEROL VIT D3 2,000 UNITS TAB/CAP PO SCH (07:57)
[2017-07-13] MEDS: LOSARTAN POTASSIUM 50 MG TAB PO SCH (07:57)
[2017-07-13] MEDS: oxyCODONE IR 5 MG TAB PO SCH (07:58)
[2017-07-13] MEDS: ENOXAPARIN 40 MG/0.4 ML SYR SC SCH (07:59)
--- NOTE | 2017-07-13 08:49 | HOSPPROG ---
Hospitalist Progress Note Assessment/Plan: Assessment: 81-year-old female presents with acute total body pain in the setting of known rheumatoid arthritis, tuberculosis. * Rheumatoid arthritis flare on prednisone 40 mg xrays show a mild compression fracture @ L1 &L4 offered a brace overall her pain is much improved *Leukocytosis resolved *hyponatremia resolved *gait instability w multiple falls at home family is very supportive they care for her 24 hours a day *left 10th rib fx not c/o pain from this *PAPA resolved/ creat is 0.6 *Latent TB rifampin for two months with stop date 09/05/17 f/u w ID, Dr Plasencia in 1 month *DM 2 on Metformin A1c is 6.4 *anemia po iron *dvt prophylaxis: LMWH *[facility] Dr Plasencia and her state attorney Subjective: Amanda is feeling better today/ up in chair. (met w her with the staff interpreter) Objective: Vital Signs Temp Pulse Resp BP Pulse Ox 36.6 C 71 18 153/93 H 93 07/13/17 04:00 07/13/17 04:00 07/13/17 04:00 07/13/17 07:57 07/13/17 04:00 Microbiology 07/05/17 17:46 Gram Stain - Final Knee - Aspirate Body Fluid Culture - Final Laboratory Results 07/11/17 05:20 07/11/17 05:20 07/12/17 07/13/17 07/14/17 05:59 05:59 05:59 Intake Total 550 1600 Output Total 1450 950 850 Balance -900 650 -850 PT 14.3 SEC (12.0-15.0) 07/05/17 12:15 INR 1.12 (0.83-1.16) 07/05/17 12:15 - Physical Exam Constitutional: no apparent distress, appears nourished Eyes: PERRL Ears, Nose, Mouth, Throat: hearing normal Cardiovascular: regular rate and rhythym Respiratory: no respiratory distress Gastrointestinal: normoactive bowel sounds Skin: warm Musculoskeletal: generalized weakness Neurologic: AAOx3 Psychiatric: interacting appropriately ICD10 Worksheet Patient Problems: Problems Problem Status Onset Bilateral hydronephrosis Acute Bladder outlet obstruction Acute Elevated white blood cell count Acute Fever Acute Hyponatremia Acute Intractable pain Acute Renal failure Acute Rheumatoid aortitis Acute Arthritis Acute Chest pain, moderate coronary artery risk Acute Contusion of mid back Acute Right ankle sprain Acute
[2017-07-13 08:52] VITALS: RESP 16
--- NOTE | 2017-07-13 09:07 | PDIAF ---
- Diagnosis Diagnosis: Rheumotoid arthritis flaire, gait instability with fall Code Status: Full Code - Medication Management Discharge Medications: Medications to Continue on Transfer Aspirin EC [Aspirin EC 81 mg (*)] 81 mg PO DAILY 01/04/16 [Last Taken 04/12/16] Calcium Carb W/Vit D [Calcium Carb W/Vit D 500/200 (*)] 500 mg PO DAILY [Last Taken 04/12/16] Cetirizine [ZyrTEC 10 mg (*)] 10 mg PO DAILY 01/04/16 [Last Taken 04/12/16] Hydrochlorothiazide 25 mg PO DAILY 01/04/16 [Last Taken 04/12/16] metFORMIN HCL [Glucophage 500 mg (*)] 250 mg PO BIDMEAL 01/04/16 [Last Taken ] Acetaminophen [Tylenol 325mg (*)] 650 mg PO Q4 PRN #0 tab 04/16/16 [Last Taken Unknown] CYCLOBENZAPRINE HCL [Flexeril] 5 mg PO BID PRN #20 tab 07/02/17 [Last Taken Unknown] oxyCODONE IR [Oxycodone Ir (*)] 5 - 10 mg PO Q6 PRN #20 tab 07/02/17 [Last Taken Unknown] Losartan Potassium [Cozaar 50 mg (*)] 50 mg PO DAILY 07/05/17 [Last Taken ] Rosuvastatin Calcium [Crestor] 10 mg PO DAILY 07/05/17 [Last Taken Unknown] Acetaminophen [Tylenol 325mg (*)] 650 mg PO Q4HRS PRN tab 07/13/17 [Last Taken Unknown] Cholecalciferol Vit D3 [Vitamin D3 2000 units tab (OTC)] 2,000 units PO DAILY each 07/13/17 [Last Taken Unknown] Ferrous Sulfate [Slow Fe 140 MG (*)] 140 mg PO DAILY tab.er 07/13/17 [Last Taken Unknown] Gabapentin [Neurontin 100 MG (*)] 100 mg PO TID #60 cap 07/13/17 [Last Taken Unknown] Polyethylene Glycol 3350 [Miralax 17 gm (*)] 17 gm PO DAILY pkt 07/13/17 [Last Taken Unknown] Rifampin [Rifadin 300mg (*)] 600 mg PO DAILY 54 Days #0 07/13/17 [Last Taken Unknown] Sennosides/Docusate Sodium [Senokot-S] 1 - 2 tab PO BID tab 07/13/17 [Last Taken Unknown] oxyCODONE IR [Oxycodone Ir (*)] 5 - 15 mg PO Q4 PRN tab 07/13/17 [Last Taken Unknown] oxyCODONE IR [Oxycodone Ir (*)] 5 mg PO BID tab 07/13/17 [Last Taken Unknown] predniSONE 40 mg PO DAILY #21 tablet 07/13/17 [Last Taken Unknown] Care Home Antibiotics: Rifampin 600 mg daily Clam Picker Antibiotic Stop Date: 09/05/17 Discharge Medications: Refer to the Discharge Home Medication list for PRN reason. - Orders Services needed: Physical Therapy, Occupational Therapy Diet Recommendation: no restrictions on diet Diet Texture: Regular Texture Diet Activity/Weight Bearing Restrictions: as tolerated Additional: PREDNISONE 40 MG X 5 DAYS, THEN DECREASE TO 20 MG X 5 DAYS, THEN 10 MG X 5 DAYS/ TAKE WITH FOOD. Amanda needs to see her levi maker in the next few weeks for treatment. Her oxy IR has been scheduled bid, in addition, neurontin dose was bid,now tid. Follow up with her PCP to get further evaluation of her anemia. - Follow Up Care Current Providers and Referrals: Yemi Brewer MD [Primary Care Provider] - As per Instructions Pedro Plasencia MD [Medical Doctor] - follow up in 2 weeks
--- NOTE | 2017-07-13 10:41 | GDS ---
[f rep st] DISCHARGE SUMMARY DISCHARGE DIAGNOSES: 1. Rheumatoid arthritis flare. 2. Leukocytosis. 3. Hyponatremia. 4. Gait instability with multiple falls at home. 5. Left 10th rib fracture. 6. Acute kidney injury. 7. Latent tuberculosis. 8. Diabetes. 9. Anemia. CONSULTATIONS: 1. Dr. Elodia Ojeda. 2. Alise Maravilla, physician nutritional assistant with Dr. Williamson. HISTORY: Briefly, the patient is an 81-year-old female with a history rheumatoid arthritis, hyperten ji, hyperlipidemia, and diabetes. She presented to the emergency room with pain, fevers and chills . Her family are her full-time care providers. They reported that she has had a steady decline with her joints, abdominal discomfort, nausea, fevers and arthralgia for the last 72 hours. There was not rosi specific, but multiple vague symptoms. In addition, she had an elevated white blood cell count on admission. She was seen and evaluated by Dr. Elodia Ojeda with Infectious Disease. It was not collin ar if she had any type of occult infection. She had no evidence of pneumonia. No evidence of a urin cecilio tract infection, but had some urinary retention. Because her blood cultures were negative and th ere was no clear cut etiology of her symptoms, antibiotics were discontinued at that time. It was du e most likely to her rheumatoid arthritis flare. In addition, she was seen and evaluated by Orthoped ics because of multiple pain complaints. They believe in addition that she had a symptomatic flare-u p of her RA in most of her joints since coming off her anti-RA immunosuppression drugs. This was don e because she is on anti-TB medication. The plan is for her to go to a jail facility. Sh alyssia will be slowly weaned off the prednisone, and then she will need close followup with her rheumatolo gist. HOSPITAL COURSE: 1. Rheumatoid arthritis flare. She is markedly improved being on prednisone. She has complained of both shoulders hurting her, as well as her back, her hips, her knees and ankles, but she said she is better. Once she gets done with treatment for her latent TB, hopefully she can get back on her medic ations for her rheumatoid arthritis. 2. Leukocytosis, resolved. 3. Hyponatremia, resolved. 4. Gait instability with multiple falls at home. Her family is very supportive. She will go to a s killed nursing facility to help her strengthen. 5. Left 10th rib fracture. She is not complaining of any pain from this. 6. Acute kidney injury, resolved. Her most recent creatinine is 0.6. 7. Latent tuberculosis. She will be on rifampin for 2 months with stop date on September 01, 2017. She needs to follow up with Dr. Plasencia in 2 weeks to a month. 8. Diabetes type 2. She is on metformin. Hemoglobin A1c is 6.4. 9. Anemia. Further follow up with her PCP. She is on oral iron. CONDITION AT DISCHARGE: Stable. Blood pressure is 160/67, heart rate is 58, respiratory rate is 16, O2 saturation on room air 91%, temperature is 36.9 Celsius. MEDICATIONS AT DISCHARGE: Please see the EMR. DISCHARGE INSTRUCTIONS: 1. Follow up with databases computer consultant. 2. Continue treatment with the rifampin as instructed. 3. Further followup with Dr. Plasencia. 4. If she develops fever, chills, chest pain, shortness of breath, return to the ER. Greater than 30 minutes discharging and coordinating care. /[id number]/MODL
[2017-07-13 11:21] VITALS: BP 176/83; PULSE 102; TEMP 98.4; O2SAT 90
--- NOTE | 2017-07-13 15:10 | ASMTCMCOM ---
[place] Note CM Note Notes: D/w REPRODUCER, final orders faxed. Damir from [facility] notified and arranged for transport at 3:45 with [facility]. CM left message for dtr Mitra. Date Signed: 07/13/2017 03:10 PM Electronically Signed By:Gladys Garner RN
--- NOTE | 2017-07-13 18:11 | ASDISCHSUM ---
Discharge Information Plan Status:SNF Medically Cleared to Leave: Discharge Date:07/13/2017 03:40 PM D/C Disposition:Snf Facility ADT D/C Disposition:Snf Facility Projected Discharge Date:07/12/2017 11:00 AM Transportation at D/C:Medicaid Transportation Discharge Delay Reason: Follow-Up Date:07/12/2017 11:00 AM Discharge Slot: Final Diagnosis: Placement Information Referral Type:*Mcfp/SNF Referral ID:[id number] Provider Name:[facility] Address 1:[address] Address 2: City:[place] Selection Factors: State:[place] Patient Contact Information Contact Name:KI Relationship:Daughter Address:[address] City:[place] Alternate Phone: State/Zip Code:[place] [address] Email: Financial Information Financial Class: Primary Plan Desc:MEDICARE IP PART B ONLY Primary Plan Number:[id number] Secondary Plan Desc:MEDICA[place] Secondary Plan Number:[id number] Assessment Information [facility] CM Progress Note CM Note CM Note Notes: Dc needs unclear at this time, pt lives with family members who assist w/ADLs. Pt in a lot of pain today, limiting work with therapies. CM w/f Date Signed: 07/06/2017 05:50 PM Electronically Signed By:Gladys Garner RN BC CM Progress Note CM Note CM Note Notes: Pt has Medicaid and Medicare part B only, if needs SNF will be under Medicaid and will need to agree to 30 day stay. Pt still being worked up, REGINA w/f. Date Signed: 07/07/2017 03:24 PM Electronically Signed By:Gladys Garner RN [facility] CM Progress Note CM Note CM Note Notes: Spoke w/pt and family re; dc snf. Pt has medicaid, agreed to the 30 day stay. Family requests that referral be sent to [facility] as that is where many family members work, they state she had been accepted there once before but did not go. CM faxed ULTC-100 to [facility] and referral to . Family understands state needs to come and assess pt, CM w/f. Date Signed: 07/08/2017 04:23 PM Electronically Signed By:Gladys Garner RN [facility] CM Progress Note CM Note CM Note Notes: Received a call from Jaye at [facility] #[phone], all ULTC-100 paperwork received, Jaye to be on site on Sunday to assess patient for SNF. Sandy with [employer] on floor to complete [facility] Medicaid Eitan and submit. Met with patient and family regarding discharge poc. #1 choice remains [facility]. Spoke with El at re: referral, no female bed available at this time. Dtr states her sister works at [employer] and they plan on talking with [facility] further. Case Management notified family on other facility choices in [place], they would like to discuss the second choice further before CM sends out referral. Case Management will follow-up on Sunday. [facility] to see patient and family and assist with [facility] paperwork. Date Signed: 07/09/2017 04:13 PM Electronically Signed By:Rama Varela RN [facility] CM Progress Note CM Note CM Note Notes: Jaye from [facility] (P#: [phone]) came in to meet w/ pt. Pt scored a 8-9 on GDS on the ULTC-100, triggering a PASRR. CM recieved a call from Kathy Hayes and she is approving pt for 60 days for SNF. CM spoke w/ daughter regarding d/c POC. Daughter is agreeable to CM making a referral to [facility]. CM faxed over referral to . to follow. Date Signed: 07/10/2017 04:44 PM Electronically Signed By:ABDIRAHMAN Landaverde [facility] CM Progress Note CM Note CM Note Notes: Received call from Rossana Lewis [phone], pt's PASRR triggered a level 2 d/t depression. She will come to meet w/pt on Sunday at 4pm, CM notified Bri at [facility], Dr. Cierra lowery. Date Signed: 07/11/2017 05:55 PM Electronically Signed By:Gladys Garner RN [facility] CM Progress Note CM Note CM Note Notes: Received phone call from Jo Ann from [facility], pt does not need level II pasrr as snf is for short term, pt can dc tomorrow if medically stable. Bri at notified and CM discussed w/dtr Mitra. Date Signed: 07/12/2017 05:26 PM Electronically Signed By:Gladys Garner RN [facility] CM Progress Note CM Note CM Note Notes: D/w FLASH DEVELOPER, final orders faxed. Damir from [facility] notified and arranged for transport at 3:45 with [facility]. REGINA left message for dtr Mitra. Date Signed: 07/13/2017 03:10 PM Electronically Signed By:Gladys Garner RN Intervention Information Intervention Type:*IM-Signed Date of Service:07/13/2017 10:38 AM Patient Type:Inpatient Staff Member:Gertrude Katz Hours: Discipline: Severity: Comment:
== END 2017-07-13 15:40 | DRG 546 ==
LOC: EDUNIT# → F3E 16:11
PROVIDERS: ADMIT Hospitalist; ATTEND Hospitalist
PROC: 0S9C3ZX Drainage of Right Knee Joint, Percutaneous Approach, Diagnostic (ICD-10-PCS; principal; 2017-07-05)
DX: M06.9 Rheumatoid arthritis, unspecified (principal); E87.1 Hypo-osmolality and hyponatremia; N17.9 Acute kidney failure, unspecified; E11.9 Type 2 diabetes mellitus without complications; R76.11 Nonspecific reaction to tuberculin skin test without active tuberculosis; R26.81 Unsteadiness on feet; D63.8 Anemia in other chronic diseases classified elsewhere; B00.9 Herpesviral infection, unspecified; G89.29 Other chronic pain; F11.20 Opioid dependence, uncomplicated; J44.9 Chronic obstructive pulmonary disease, unspecified; I10 Essential (primary) hypertension; S22.32XD Fracture of one rib, left side, subsequent encounter for fracture with routine healing; R19.7 Diarrhea, unspecified; N13.30 Unspecified hydronephrosis; Z91.81 History of falling; Z87.442 Personal history of urinary calculi; Z66 Do not resuscitate
CPT/HCPCS: 87529-90; 97110-GO; 97162-GP; 97166-GO; 97530-GO; 97530-GP; 97535-GO; G8978-GP-CM; G8979-GP-CJ; G8987-GO-CM; G8988-GO-CI; J0696; J1650; J2405; J3010; Q9967

== ENCOUNTER 2017-08-24 20:58 | Inpatient (IN) | payer OTHER, MEDICAID ==
[2017-08-24] MEDS ORDERED: NS 1,000 ML IV ONE (21:22)
--- NOTE | 2017-08-24 21:58 | CPEKG ---
Heart Rate: 74 RR Interval: 811 P-R Interval: 152 QRSD Interval: 116 QT Interval: 372 QTC Interval: 413 P [place]: 28 QRS [place]: -16 T Wave [place]: 19 EKG Severity - ABNORMAL ECG - EKG Impression: SINUS RHYTHM EKG Impression: INCOMPLETE RIGHT BUNDLE BRANCH BLOCK Electronically Signed By: Jessica Chan 25-Aug-2017 00:06:33
--- NOTE | 2017-08-24 22:07 | EDPHY ---
H & P Time Seen by Provider: 08/24/17 21:03 HPI/ROS: HPI Fever, joint pain. 81-year-old female by ambulance from home. She is with her granddaughter. This patient complains of a fever which has been intermittent and started today. She also complains of worsening joint pain, mostly in both her hips but she complains of pain which she describes as sharp and aching in her ankles and elbows as well. No headache. No neck pain. No history of trauma. She has a history of chronic hip pain and joint pain associated with rheumatoid arthritis , she takes oxycodone as well as prednisone for her chronic pain. She also has been diagnosed with osteoarthritis of the hips. She is usually able to transfer from the bed to a wheelchair with assistance but was unable to do that tonight because of the pain. She had to be brought to the emergency department by ambulance because of this. Her care at home is primarily through her family. She was seen in our emergency department and admitted to the hospital in mid June for similar complaints. She had an extensive workup an extended stay in the hospital at that time. It was thought that the primary etiology of her symptoms was a flare of her rheumatoid arthritis. She is Chinese-speaking only. Her daughter is present to translate. ROS: Constitutional: As above, no chills. No weakness. Eyes: No discharge. No changes in vision. ENT: No sore throat. No nasal congestion or rhinorrhea. Respiratory: No cough. No shortness of breath. Cardiac: No chest pain, no palpitations. Gastrointestinal: No abdominal pain, no vomiting, no diarrhea. Genitourinary: No hematuria. No dysuria or increased frequency with urination. Musculoskeletal: As above. Skin: No rashes. Neurological: No headache. No focal weakness or altered sensation. Past medical history: Rheumatoid arthritis, not currently on immune modulator secondary to a history of testing positive for tuberculosis. Diabetes, hypertension, hyperlipidemia. History of cerebral aneurysm and subarachnoid hemorrhage. 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 Social history: Former smoker. No alcohol or drugs. Lives with family. Physical Exam: General Appearance: Alert, she is emotional appears uncomfortable. Chinese- speaking only. This patient is responding to questions appropriately and in full sentences. This patient appears well-hydrated and well-nourished. Eyes: Pupils equal and round no pallor or injection. No lid edema, erythema or injection. ENT, Mouth: Mucous membranes are moist. The pharyngeal tissues are unremarkable. No edema or swelling. No asymmetry suggestive of abscess. No erythema or exudates. Respiratory: There are no retractions, lungs are clear to auscultation anteriorly with good air movement bilaterally. No tachypnea Cardiovascular: Regular rate and rhythm. No murmur. Gastrointestinal: Abdomen is soft and nontender, no masses, bowel sounds normal. No focal tenderness at McBurney's point. No Adame sign. Neurological: Motor sensory function is grossly intact. Cranial nerves are normal. Gait is normal. Skin: Warm and dry, no rashes. Musculoskeletal: Neck is supple and nontender. No pain on flexion of the neck. Extremities are symmetrical. She has pain elicited by any active or passive ranging of both hips. Psychiatric: No agitation. As above. Database: EKG: EKG time is 9:56 p.m.; EKG shows a sinus rhythm with incomplete right bundle branch block and a ventricular rate of 74. The MN, QRS, QT intervals are within normal limits. There are no ST-T wave changes indicative of ischemic or injury pattern. No evidence of right heart strain. Interpreted by me. Imaging: Chest x-ray AP portable; the cardiac mediastinal silhouette is unremarkable. No evidence of infiltrate or pneumothorax. Mild bronchitis. No other acute cardiopulmonary disease process noted. Interpreted by me. Left hip x-ray series; negative for fracture, subluxation, dislocation. Interpreted by me. Right hip x-ray series; negative for fracture, subluxation, dislocation. Interpreted by me. Procedures: Emergency department course: IV placed. Vital signs reviewed. She was started on IV normal saline with 500 cc to be given over the next hour. She was given a g of Tylenol orally. She was given 125 mg of IV Solu-Medrol for probable rheumatoid flare. Cath urine specimen obtained. Repeat vitals. Patient's tachycardia has resolved. She has remained afebrile. She received 0.5 mg of IV hydromorphone and 125 mg of IV Solu-Medrol as noted above. 11:20 p.m., patient re-evaluated. Resting comfortably at this time. Results of diagnostic test discussed with the family. Plan for admission for observation further treatment of her pain discussed. No indication for an antibiotic at this time. 11:25 p.m., discussed case with on-call hospitalist Dr. Sibley. Case discussed in detail with her. She agrees with emergency department management given the patient's history and holding antibiotics at this time. Patient's remaining emergency department course under my care has been uneventful. She was admitted to the hospitalist service in stable and improved condition. Differential Diagnosis: The differential diagnosis on this patient includes but is not limited to rheumatoid arthritis flare, chronic joint pain. Urinary tract infection, pneumonia, sepsis, other serious bacterial infection unlikely. This represents a partial list of diagnoses considered. These considerations are based on history, physical exam, past history, reassessment and diagnostic testing. Smoking Status: Former smoker Constitutional: Initial Vital Signs Temperature (C) 37.3 C 08/24/17 21:09 Heart Rate 100 08/24/17 21:09 Respiratory Rate 15 08/24/17 21:09 Blood Pressure 145/86 H 08/24/17 21:09 O2 Sat (%) 92 08/24/17 21:09 O2 Delivery Mode Nasal Cannula O2 (L/minute) 2 Allergies/Adverse Reactions: Penicillins Allergy (Unknown, Verified 07/02/17 08:37) Home Medications: Medication Instructions Recorded Aspirin EC [Aspirin EC 81 mg (*)] 81 mg PO DAILY 01/04/16 Calcium Carb W/Vit D [Calcium Carb 500 mg PO DAILY 01/04/16 W/Vit D 500/200 (*)] Cetirizine [ZyrTEC 10 mg (*)] 10 mg PO DAILY 01/04/16 Hydrochlorothiazide 25 mg PO DAILY 01/04/16 metFORMIN HCL [Glucophage 500 mg 250 mg PO BIDMEAL 01/04/16 (*)] Acetaminophen [Tylenol 325mg (*)] 650 mg PO Q4 PRN #0 tab 04/16/16 CYCLOBENZAPRINE HCL [Flexeril] 5 mg PO BID PRN #20 tab 07/02/17 oxyCODONE IR [Oxycodone Ir (*)] 5 - 10 mg PO Q6 PRN #20 tab 07/02/17 Losartan Potassium [Cozaar 50 mg 50 mg PO DAILY 07/05/17 (*)] Rosuvastatin Calcium [Crestor] 10 mg PO DAILY 07/05/17 Acetaminophen [Tylenol 325mg (*)] 650 mg PO Q4HRS PRN tab 07/13/17 Cholecalciferol Vit D3 [Vitamin D3 2,000 units PO DAILY each 07/13/17 2000 units tab (OTC)] Ferrous Sulfate [Slow Fe 140 MG 140 mg PO DAILY tab.er 07/13/17 (*)] Gabapentin [Neurontin 100 MG (*)] 100 mg PO TID #60 cap 07/13/17 Polyethylene Glycol 3350 [Miralax 17 gm PO DAILY pkt 07/13/17 17 gm (*)] Rifampin [Rifadin 300mg (*)] 600 mg PO DAILY 54 Days #0 07/13/17 Sennosides/Docusate Sodium 1 - 2 tab PO BID tab 07/13/17 [Senokot-S] oxyCODONE IR [Oxycodone Ir (*)] 5 - 15 mg PO Q4 PRN tab 07/13/17 oxyCODONE IR [Oxycodone Ir (*)] 5 mg PO BID tab 07/13/17 predniSONE 40 mg PO DAILY #21 tablet 07/13/17 Medical Decision Making - Diagnostics Imaging Results: Imaging Impressions Chest X-Ray 08/24/17 21:23 Impression: Mild airways disease. No pneumonia. Hip X-Ray 08/24/17 22:04 Impression: Negative. No acute fracture. - Data Points Laboratory Results: Laboratory Results 08/24/17 22:12 08/24/17 22:12 08/24/17 08/24/17 08/24/17 22:12 22:12 21:57 WBC 14.61 10^3/uL H 10^3/uL (3.80-9.50) RBC 3.83 10^6/uL L 10^6/uL (4.18-5.33) Hgb 11.5 g/dL L g/dL (12.6-16.3) Hct 33.4 % L % (38.0-47.0) MCV 87.2 fL fL (81.5-99.8) MCH 30.0 pg pg (27.9-34.1) MCHC 34.4 g/dL g/dL (32.4-36.7) RDW 12.8 % % (11.5-15.2) Plt Count 296 10^3/uL 10^3/uL (150-400) MPV 9.7 fL fL (8.7-11.7) Neut % (Auto) 73.3 % % (39.3-74.2) Lymph % (Auto) 13.0 % L % (15.0-45.0) [place] % (Auto) 12.9 % % (4.5-13.0) Eos % (Auto) 0.0 % L % (0.6-7.6) Baso % (Auto) 0.4 % % (0.3-1.7) Nucleat RBC Rel Count 0.0 % % (0.0-0.2) Absolute Neuts (auto) 10.71 10^3/uL H 10^3/uL (1.70-6.50) Absolute Lymphs (auto) 1.90 10^3/uL 10^3/uL (1.00-3.00) Absolute Monos (auto) 1.88 10^3/uL H 10^3/uL (0.30-0.80) Absolute Eos (auto) 0.00 10^3/uL L 10^3/uL (0.03-0.40) Absolute Basos (auto) 0.06 10^3/uL 10^3/uL (0.02-0.10) Absolute Nucleated RBC 0.00 10^3/uL 10^3/uL (0-0.01) Immature Gran % 0.4 % % (0.0-1.1) Immature Gran # 0.06 10^3/uL 10^3/uL (0.00-0.10) VBG Lactic Acid 1.5 mmol/L mmol/L (0.7-2.1) Sodium 129 mEq/L L mEq/L (134-144) Potassium 4.3 mEq/L mEq/L (3.5-5.2) Chloride 95 mEq/L L mEq/L (97-110) Carbon Dioxide 22 mEq/l mEq/l (22-31) Anion Gap 12 mEq/L mEq/L (8-16) BUN 12 mg/dL mg/dL (7-23) Creatinine 0.6 mg/dL mg/dL (0.6-1.0) Estimated GFR > 60 Glucose 131 mg/dL H mg/dL (70-100) Calcium 9.8 mg/dL mg/dL (8.5-10.4) Total Bilirubin 0.7 mg/dL mg/dL (0.1-1.4) Conjugated Bilirubin 0.3 mg/dL mg/dL (0.0-0.5) Unconjugated Bilirubin 0.4 mg/dL mg/dL (0.0-1.1) AST 19 IU/L IU/L (14-46) ALT 27 IU/L IU/L (9-52) Alkaline Phosphatase 75 IU/L IU/L (38-126) Total Protein 6.6 g/dL g/dL (6.3-8.2) Albumin 3.7 g/dL g/dL (3.5-5.0) Urine Color Urine Appearance Urine pH Ur Specific [place] Urine Protein Urine Ketones Urine Blood Urine Nitrate Urine Bilirubin Urine Urobilinogen Ur Leukocyte Esterase Urine RBC Urine WBC Ur Epithelial Cells Urine Glucose 08/24/17 21:49 WBC RBC Hgb Hct MCV MCH MCHC RDW Plt Count MPV Neut % (Auto) Lymph % (Auto) [place] % (Auto) Eos % (Auto) Baso % (Auto) Nucleat RBC Rel Count Absolute Neuts (auto) Absolute Lymphs (auto) Absolute Monos (auto) Absolute Eos (auto) Absolute Basos (auto) Absolute Nucleated RBC Immature Gran % Immature Gran # VBG Lactic Acid Sodium Potassium Chloride Carbon Dioxide Anion Gap BUN Creatinine Estimated GFR Glucose Calcium Total Bilirubin Conjugated Bilirubin Unconjugated Bilirubin AST ALT Alkaline Phosphatase Total Protein Albumin Urine Color ANNA Urine Appearance CLEAR Urine pH 7.0 (5.0-7.5) Ur Specific [place] 1.010 (1.002-1.030) Urine Protein NEGATIVE (NEGATIVE) Urine Ketones NEGATIVE (NEGATIVE) Urine Blood 1+ H (NEGATIVE) Urine Nitrate NEGATIVE (NEGATIVE) Urine Bilirubin NEGATIVE (NEGATIVE) Urine Urobilinogen NEGATIVE EU EU (0.2-1.0) Ur Leukocyte Esterase NEGATIVE (NEGATIVE) Urine RBC 1-3 /hpf /hpf (0-3) Urine WBC Not Reported Ur Epithelial Cells Not Reported Urine Glucose NEGATIVE (NEGATIVE) Medications Given: Discontinued Medications Hydromorphone HCl (Dilaudid) 0.5 mg IVP EDNOW ONE Stop: 08/24/17 22:54 Last Admin: 08/24/17 23:01 Dose: 0.5 mg Sodium Chloride (Ns) 1,000 mls @ 0 mls/hr IV ONCE ONE; Wide Open PRN Reason: Protocol Stop: 08/24/17 21:23 Last Admin: 08/24/17 22:10 Dose: 1,000 mls Methylprednisolone Sodium Succinate (Solu-Medrol) 125 mg IVP EDNOW ONE Stop: 08/24/17 22:11 Last Admin: 08/24/17 22:21 Dose: 125 mg Departure - Departure Disposition: [facility] Inpatient Acute Clinical Impression: Joint pain, History of fever Referrals: NONE *PRIMARY CARE P,. [Primary Care Provider] - As per Instructions
[2017-08-24] MEDS ORDERED: methylPREDNISolone SOD SUCC 125 MG/2 ML VIAL IVP ONE (22:10)
[2017-08-24 22:22] LABS: PLATELET COUNT 296 10^3/uL (150-400)
[2017-08-24] MEDS ORDERED: HYDROmorphONE/DILAUDID 1 MG/ML INJ IVP ONE (22:53)
[2017-08-24] MEDS ORDERED: NS 1,000 ML IV SCH (23:45)
[2017-08-24] MEDS ORDERED: HYDROmorphONE/DILAUDID 1 MG/ML INJ IVP PRN (23:57)
[2017-08-24] MEDS ORDERED: ONDANSETRON 4 MG/2 ML VIAL IVP PRN (23:57)
[2017-08-24] MEDS ORDERED: ACETAMINOPHEN 325 MG TAB PO PRN (23:57)
[2017-08-25] MEDS ORDERED: D50W 25 GM/50 ML VIAL IVP PRN (03:58)
[2017-08-25] MEDS: oxyCODONE IR 5 MG TAB PO PRN ×4 (03:59→19:50)
[2017-08-25 06:39] LABS: PLATELET COUNT 283 10^3/uL (150-400)
--- NOTE | 2017-08-25 07:35 | PDGENHP ---
History and Physical - Chief Complaint fever, joint pain - History of Present Illness Source - patient [place] speaking and somnolent but able to provide some history. Majority obtained from discussion with patient daughter at bedside. Case discussed with ED provider and EMR reviewed back to 06/2017 from last hospital stay. HPI - Pleasant 81 yo F with pmhx significant for Rheumatoid arthritis, DM, HTN, hLD, and + TB test completing additional 9 days of 4 month rifampin treatment who presents to the ED via AMS today after family was not able to transfer patient from bed to wheelchair 2/2 patient c/o severe pain and development of fever at home. Patient without any complaints of chills/sweats/cough/rhinorrhea /nausea/vomiting/diarrhea or new skin lesions. Daughter reports patient with progressively worsening diffuse joint pain over the last several days that patient has been essentially bed bound. She has had decreased oral intake over this time as well. Patient without any falls/injury. She is essentially wheelchair bound 2/2 her pain but normally family is able to assist her with transferring. In the ED, Patient received solumedrol 125mg, dilaudid and IVF with improvement in her complaints of pain such that patient was able to rest comfortably. At time of my interview patient was denying any pain except with attempts at movement of her hips or distal lower extremities. 07/05/2017 Patient with similar admission for fever and worsened joint pain. Patient had a negative infectious work up and fever thought 2/2 RA exacerbation. Patient has had to be off her immunomodulators since initiating rifampin treatment. She has not had any respiratory symptoms. History Information - Allergies/Home Medication List Allergies/Adverse Reactions: Penicillins Allergy (Unknown, Verified 07/02/17 08:37) Home Medications: Aspirin EC [Aspirin EC 81 mg (*)] 81 mg PO DAILY 01/04/16 [Last Taken 04/12/16] Calcium Carb W/Vit D [Calcium Carb W/Vit D 500/200 (*)] 500 mg PO DAILY [Last Taken 04/12/16] Cetirizine [ZyrTEC 10 mg (*)] 10 mg PO DAILY 01/04/16 [Last Taken 04/12/16] Hydrochlorothiazide 25 mg PO DAILY 01/04/16 [Last Taken 04/12/16] metFORMIN HCL [Glucophage 500 mg (*)] 250 mg PO BIDMEAL 01/04/16 [Last Taken ] Losartan Potassium [Cozaar 50 mg (*)] 50 mg PO DAILY 07/05/17 [Last Taken ] Rosuvastatin Calcium [Crestor] 10 mg PO DAILY 07/05/17 [Last Taken Unknown] oxyCODONE IR [Oxycodone Ir (*)] 5 mg PO Q4 PRN 08/24/17 [Last Taken Unknown] I have personally reviewed and updated: family history, medical history, social history, surgical history - Past Medical History arthritis (OA and rheumatoid arthritis), diabetes type 2, hypertension, hyperlipidemia Additional medical history: + TB test on rifampin tx last dosing due 2016. EMR lists urinary retention but daughter denies any issues. allergic rhinitis. CAD w/o angina. thoracic vertebral fracture. hx cerebral aneurysm with SAH s/p clip. rib fracture. debility with generalized weakness. wheelchair bound. - Surgical History Additional surgical history: cerebral aneurysm clip. cataract extraction with lens placement. - Family History Additional family history: multiple daughters with DM II, HTN. parents advanced age. - Social History Smoking Status: Former smoker Alcohol Use: None Drug Use: None Additional social history: Patient lives with her daughter and her family. She had 12 children 8 of whom are still living locally and involved in patient care. COR - DNR/DNI. daughters are proxy. Review of Systems Review of Systems: ROS: 10pt was reviewed & negative except for what was stated in HPI & below Constitutional: Reports: fever, malaise, weakness. Denies: chills, weight loss EENMT: Denies: blurred vision, eye pain, nose congestion, sore throat Cardiac: Reports: no symptoms. Denies: chest pain, lightheadedness, palpitations Respiratory: Reports: no symptoms. Denies: cough, shortness of breath Gastrointestinal: Reports: no symptoms. Denies: vomitting, diarrhea, nausea Genitourinary: Reports: no symptoms Muscolosketal: Reports: joint pain, muscle pain. Denies: joint swelling Skin: Reports: no symptoms. Denies: lesions, rash Neurological: Reports: no symptoms, weakness (chronic generalized weakness). Denies: anxiety, depressed, numbness, tingling Hematologic/Lymphatic: Reports: no symptoms Physical Exam Physical Exam: Selected Entries 08/24/17 21:09 Heart Rate 100 Respiratory 15 Rate O2 Sat (%) 92 Temperature (C) 37.3 C Blood Pressure 145/86 H Mean Arterial 105 H Pressure (MAP) O2 Delivery Room Air Mode Temperature Oral Source Temp Pulse Resp BP Pulse Ox 36.4 C 52 L 16 105/50 L 100 08/25/17 07:18 08/25/17 07:18 08/25/17 07:18 08/25/17 07:18 08/25/17 07:18 O2 (L/minute) 3 Constitutional: no apparent distress, appears nourished, not in pain (patient sleeping comfortably and wakes easily. no c/o pain until exam or with movement greatest hips L>R) Eyes: PERRL, EOMI, other (lens reflex bilaterally. ), No icteric sclera, No pale conjunctiva, No scleral injection Ears, Nose, Mouth, Throat: dry mucous membranes, other (no nasal discharge. no oropharyngeal erythema/exudates) Peripheral Pulses: 1+: dorsalis-pedis (R), dorsalis-pedis (L) Respiratory: no respiratory distress, no rales or rhonchi, clear to auscultation Gastrointestinal: normoactive bowel sounds, soft, non-tender abdomen, other ( soft, obese abdomen), No tenderness, No rebound, No distension Genitourinary: No no bladder fullness (bladder fullness and discomfort), No hutchins in urethra Skin: warm, normal color, No rash Musculoskeletal: joint tenderness (bilateral hips, ankles), generalized weakness Neurologic: AAOx3, weakness (generalized nothing focal.), CN II-XII Intact Psychiatric: not anxious Lab Data & Imaging Review 08/25/17 05:45 08/25/17 05:45 WBC 11.28 10^3/uL (3.80-9.50) H 08/25/17 05:45 RBC 3.80 10^6/uL (4.18-5.33) L 08/25/17 05:45 Hgb 11.4 g/dL (12.6-16.3) L 08/25/17 05:45 Hct 33.8 % (38.0-47.0) L 08/25/17 05:45 MCV 88.9 fL (81.5-99.8) 08/25/17 05:45 MCH 30.0 pg (27.9-34.1) 08/25/17 05:45 MCHC 33.7 g/dL (32.4-36.7) 08/25/17 05:45 RDW 12.8 % (11.5-15.2) 08/25/17 05:45 Plt Count 283 10^3/uL (150-400) 08/25/17 05:45 MPV 10.5 fL (8.7-11.7) 08/25/17 05:45 Neut % (Auto) 75.2 % (39.3-74.2) H 08/25/17 05:45 Lymph % (Auto) 13.3 % (15.0-45.0) L 08/25/17 05:45 [place] % (Auto) 10.7 % (4.5-13.0) 08/25/17 05:45 Eos % (Auto) 0.0 % (0.6-7.6) L 08/25/17 05:45 Baso % (Auto) 0.3 % (0.3-1.7) 08/25/17 05:45 Nucleat RBC Rel Count 0.0 % (0.0-0.2) 08/25/17 05:45 Absolute Neuts (auto) 8.48 10^3/uL (1.70-6.50) H 08/25/17 05:45 Absolute Lymphs (auto) 1.50 10^3/uL (1.00-3.00) 08/25/17 05:45 Absolute Monos (auto) 1.21 10^3/uL (0.30-0.80) H 08/25/17 05:45 Absolute Eos (auto) 0.00 10^3/uL (0.03-0.40) L 08/25/17 05:45 Absolute Basos (auto) 0.03 10^3/uL (0.02-0.10) 08/25/17 05:45 Absolute Nucleated RBC 0.00 10^3/uL (0-0.01) 08/25/17 05:45 Immature Gran % 0.5 % (0.0-1.1) 08/25/17 05:45 Immature Gran # 0.06 10^3/uL (0.00-0.10) 08/25/17 05:45 VBG Lactic Acid 1.5 mmol/L (0.7-2.1) 08/24/17 21:57 Sodium 138 mEq/L (134-144) 08/25/17 05:45 Potassium 4.6 mEq/L (3.5-5.2) 08/25/17 05:45 Chloride 101 mEq/L (97-110) 08/25/17 05:45 Carbon Dioxide 26 mEq/l (22-31) 08/25/17 05:45 Anion Gap 11 mEq/L (8-16) 08/25/17 05:45 BUN 12 mg/dL (7-23) 08/25/17 05:45 Creatinine 0.6 mg/dL (0.6-1.0) 08/25/17 05:45 Estimated GFR > 60 08/25/17 05:45 Glucose 149 mg/dL (70-100) H 08/25/17 05:45 Calcium 9.6 mg/dL (8.5-10.4) 08/25/17 05:45 Magnesium 1.7 mg/dL (1.6-2.3) 08/25/17 05:45 Total Bilirubin 0.7 mg/dL (0.1-1.4) 08/24/17 22:12 Conjugated Bilirubin 0.3 mg/dL (0.0-0.5) 08/24/17 22:12 Unconjugated Bilirubin 0.4 mg/dL (0.0-1.1) 08/24/17 22:12 AST 19 IU/L (14-46) 08/24/17 22:12 ALT 27 IU/L (9-52) 08/24/17 22:12 Alkaline Phosphatase 75 IU/L (38-126) 08/24/17 22:12 Total Protein 6.6 g/dL (6.3-8.2) 08/24/17 22:12 Albumin 3.7 g/dL (3.5-5.0) 08/24/17 22:12 Urine Color ANNA 08/24/17 21:49 Urine Appearance CLEAR 08/24/17 21:49 Urine pH 7.0 (5.0-7.5) 08/24/17 21:49 Ur Specific [place] 1.010 (1.002-1.030) 08/24/17 21:49 Urine Protein NEGATIVE (NEGATIVE) 08/24/17 21:49 Urine Ketones NEGATIVE (NEGATIVE) 08/24/17 21:49 Urine Blood 1+ (NEGATIVE) H 08/24/17 21:49 Urine Nitrate NEGATIVE (NEGATIVE) 08/24/17 21:49 Urine Bilirubin NEGATIVE (NEGATIVE) 08/24/17 21:49 Urine Urobilinogen NEGATIVE EU (0.2-1.0) 08/24/17 21:49 Ur Leukocyte Esterase NEGATIVE (NEGATIVE) 08/24/17 21:49 Urine RBC 1-3 /hpf (0-3) 08/24/17 21:49 Urine WBC Not Reported 08/24/17 21:49 Ur Epithelial Cells Not Reported 08/24/17 21:49 Urine Glucose NEGATIVE (NEGATIVE) 08/24/17 21:49 Nasal Influenza A PCR NEGATIVE FOR FLU A (NEGATIVE) 08/24/17 21:44 Nasal Influenza B PCR NEGATIVE FOR FLU B (NEGATIVE) 08/24/17 21:44 Imaging Review: Portable Chest, Single View 9:37 PM Indication: Cough Comparison: Portable chest dated July 05, 2017 Findings: A sliver of fluid versus thickening has developed along the minor fissure. The lungs are otherwise well aerated and clear with unchanged diffuse peribronchial thickening. No edema, airspace consolidation or effusion. Heart size is normal. Impression: Mild airways disease. No pneumonia. Dictated By: Julio Red MD Bilateral hips - 3 views Indication: Hip pain Comparison: Right hip series dated July 12, 2017 and left hip series dated May 19, 2017 Technique: AP pelvis, crosstable lateral view left hip and frog-leg lateral view right hip Findings: No acute femoral neck fracture or bone lesion. An old proximal right femoral diaphyseal fracture is healed with moderate deformity unchanged since June 2017. Joint spaces are relatively well-preserved. Gaseous bowel pattern. Impression: Negative. No acute fracture. Visualized and Interpreted Chest x-ray results: Yes Visualized and Interpreted imaging results: Yes EKG Interpretation: Positive for: normal sinsus rhythm EKG additional interpertation: NSR 70s. incomplete RBBB. QTC 413. no acute changes. Assessment & Plan Assessment: 81 yo F with history of rheumatoid arthritis with immunomodulator therapy held for latent tb tx on rifampin presents to ED with acute on chronic intractable joint pains and fever. 1. fever - likely related to RA exacerbation. no evidence of infectious process or infectious symptoms at this time. cxr, UA without evidence of acute illness. Patient with similar history in june with negative work up. holding on antibiotics. monitoring vitals/labs at this time. tylenol prn. 2. RA - steroid burst initiated in ED. will continue prednisone dosing at this time. 3. intractable pain - improved s/p dilaudid and steroids. continue oxy continue prn. PT/OT ordered. 4. hyponatremia - likely 2/2 hypovolemia in reported history of decreased oral intake last few days. 5. leukocytosis - likely reactive in setting of fever and RA flare. continue to monitor. 6. dehydration Chronic Medical issues - DM II - low dose ISS at this time. monitor with increased steroid dosing. resume metformin once patient stabilized and diet advanced. - benign essential HTN - BPs acceptable at this time. will correct hyponatremia with IVF likely component of dehydration and medication. resume once corrected. - debility/generalized weakness - PT/OT. - cad - continue ASA. statin when med rec available. - allergic rhinitis - resume zyrtec - anemia likely chronic disease. stable. no evidence of bleeding. monitor h/h. - latent tb - continue rifampin. FEN - IVF for gentle hydration. electrolyte replacement prn. ADA diet. PPX - SCDs. lovenox. COR - DNR/DNI. daughters are proxy. Dispo - Admit to observation on medical floor.
[2017-08-25] MEDS: ASPIRIN EC 81 MG TAB PO SCH (08:34)
[2017-08-25] MEDS: FERROUS SULFATE 325 MG TAB PO SCH (08:34)
[2017-08-25] MEDS: RIFAMPIN 300 MG CAP PO SCH (08:35)
[2017-08-25] MEDS: ENOXAPARIN 40 MG/0.4 ML SYR SC SCH (08:36)
[2017-08-25] MEDS: INSULIN LISPRO 100 UNIT/ML SC SCH ×4 (09:33→21:40)
[2017-08-25] MEDS: GABAPENTIN 100 MG CAP PO SCH ×3 (09:53→21:40)
[2017-08-25] MEDS ORDERED: NON-FORMULARY NEW DRUG (Albuterol 2 PUFFS) IH PRN (10:05)
--- NOTE | 2017-08-25 10:05 | HOSPPROG ---
Hospitalist Progress Note Assessment/Plan: fever - suspect related to RA exacerbation. afebrile here since admission. no evidence of infection. cxr, UA neg. Patient with similar history in june with negative work up. -send respiratory viral panel -cont to observe off atbx RA - ?flare, pt off immunomodulator while on rifampin tx. s/p IV solumedrol in ED last night. -increase prednisone dose (had recently been increased to 15 mg daily by rheum) -cont to hold xeljanz -pain control chronic pain 2/2 above- improved s/p dilaudid and steroids. continue oxy continue prn. PT/OT ordered. hyponatremia - likely 2/2 hypovolemia in reported history of decreased oral intake last few days. leukocytosis - likely reactive in setting of fever and RA flare. continue to monitor. volume depletion - IVF's as above DM II - cont SS insulin, monitor with increased steroid dosing. metformin held for now HTN - cont losartan debility/generalized weakness - PT/OT. May require SNF cad - stable, continue ASA, statin anemia likely chronic disease. stable. no evidence of bleeding. monitor h/h. latent tb - continue rifampin, through FEN - IVF for gentle hydration. electrolyte replacement prn. ADA diet. PPX - SCDs. lovenox. COR - DNR/DNI. daughters are proxy. Dispo - change to inpt for ongoing pain control, acute PT/OT needs Subjective: Pt states she feels better. Less aching in her body. Pain better controlled. No more fevers. Denies cough, CP, SOB, urinary symptoms or abdominal symptoms. Objective: Vital Signs Temp Pulse Resp BP Pulse Ox 36.4 C 52 L 16 105/50 L 100 08/25/17 07:18 08/25/17 07:18 08/25/17 07:18 08/25/17 07:18 08/25/17 07:18 Laboratory Results 08/25/17 05:45 08/25/17 05:45 08/24/17 08/25/17 08/26/17 05:59 05:59 04:59 Intake Total 1200 Output Total 700 200 Balance 500 -200 - Physical Exam Constitutional: chronically ill appearing Eyes: PERRL Ears, Nose, Mouth, Throat: moist mucous membranes Cardiovascular: regular rate and rhythym Respiratory: no respiratory distress Gastrointestinal: normoactive bowel sounds, soft, non-tender abdomen Skin: warm Musculoskeletal: generalized weakness Neurologic: AAOx3 Psychiatric: interacting appropriately ICD10 Worksheet Patient Problems: Problems Problem Status Onset Fever Acute History of fever Acute Joint pain Acute Arthritis Acute Bilateral hydronephrosis Acute Bladder outlet obstruction Acute Chest pain, moderate coronary artery risk Acute Contusion of mid back Acute Elevated white blood cell count Acute Hyponatremia Acute Intractable pain Acute Renal failure Acute Rheumatoid aortitis Acute Right ankle sprain Acute
[2017-08-25] MEDS ORDERED: TOFACITINIB CITRATE 11 MG PO SCH (10:15)
[2017-08-25] MEDS ORDERED: predniSONE 20 MG TAB PO SCH (10:15)
[2017-08-25] MEDS ORDERED: ASPIRIN EC 81 MG TAB PO SCH (10:15)
[2017-08-25] MEDS ORDERED: ALBUTEROL 200 PUFFS/18 GM MDI IH PRN (10:18)
--- NOTE | 2017-08-25 11:31 | PDMN ---
Medical Necessity Medical necessity: C/M review: est. > 2 MN LOS for eval and TX of acute and persistent likely rheumatoid arthritis exacerbation, questionable flare, fever, hyponatremia, volume depletion, generalized weakness, requiring ongoing IV fluids, pain management, acute inpt PT/OT, comorbid type 2 diabetes, hypertension, CAD, anemia likely of chronic disease, latent tuberculosis per 08/25/2017 Hospitalist progress note.
[2017-08-25] MEDS: LOSARTAN POTASSIUM 50 MG TAB PO SCH (12:16)
[2017-08-25] MEDS: ACETAMINOPHEN 500 MG TAB PO SCH ×2 (12:17→18:47)
[2017-08-25] MEDS: CETIRIZINE 10 MG TAB PO SCH (12:19)
--- NOTE | 2017-08-25 18:13 | ASMTCMCOM ---
CM Note CM Note Notes: DC needs not clear yet. Pt lives with dtr and family per H&P, need to meet w/family to confirm living situation. OT recommending HHC vs SNF depending on pt's progress, awaiting PT recommendation. CM will follow. Current DC plan: to be determined Date Signed: 08/25/2017 06:12 PM Electronically Signed By:Claudine Wylie RN
[2017-08-25] MEDS: ROSUVASTATIN CALCIUM 10 MG TAB PO SCH (21:41)
[2017-08-26] MEDS: ACETAMINOPHEN 500 MG TAB PO SCH ×3 (03:24→18:26)
[2017-08-26] MEDS: INSULIN LISPRO 100 UNIT/ML SC SCH ×3 (08:01→17:57)
[2017-08-26] MEDS: RIFAMPIN 300 MG CAP PO SCH (08:02)
[2017-08-26] MEDS: oxyCODONE IR 5 MG TAB PO PRN ×4 (08:09→20:51)
[2017-08-26] MEDS ORDERED: POLYETHYLENE GLYCOL 3350 17 GM PKT PO PRN (08:34)
[2017-08-26] MEDS: ENOXAPARIN 40 MG/0.4 ML SYR SC SCH (10:13)
[2017-08-26] MEDS: GABAPENTIN 100 MG CAP PO SCH ×3 (10:15→20:51)
[2017-08-26] MEDS: ASPIRIN EC 81 MG TAB PO SCH (10:16)
[2017-08-26] MEDS: GLUCOSAMINE SULF 500 MG CAP PO SCH (10:16)
[2017-08-26] MEDS: predniSONE 20 MG TAB PO SCH (10:16)
[2017-08-26] MEDS: CETIRIZINE 10 MG TAB PO SCH (10:16)
[2017-08-26] MEDS: FERROUS SULFATE 325 MG TAB PO SCH (10:16)
[2017-08-26] MEDS: LOSARTAN POTASSIUM 50 MG TAB PO SCH (10:17)
--- NOTE | 2017-08-26 11:28 | HOSPPROG ---
Hospitalist Progress Note Assessment/Plan: fever - suspect related to RA exacerbation. afebrile here since admission. resp viral panel neg. no evidence of infection. cxr, UA neg. Patient with similar history in june with negative work up. -cont to observe off atbx RA - ?flare, pt off immunomodulator while on rifampin tx, just restarted it 1 day REMOTE SENSING ADVISOR. s/p IV solumedrol in ED last night. -cont increased prednisone dose (had recently been increased to 15 mg daily by rheum) -resume xeljanz -pain control -discussed goals of care with pt's daughter, will obtain palliative care consult as pt likely to benefit from outpt palliative services chronic pain 2/2 above- improved s/p dilaudid and steroids. continue oxy prn. PT /OT ordered. hyponatremia - likely 2/2 hypovolemia in reported history of decreased oral intake last few days. Now resolved. leukocytosis - likely reactive in setting of fever and RA flare. trending down. continue to monitor. volume depletion - IVF's as above DM II - bg's 200's on higher dose steroids. -cont SSI -resume metformin HTN - cont losartan debility/generalized weakness - PT/OT. Pt and family wish for her to go home. She is essentially bed bound. cad - stable, continue ASA, statin anemia likely chronic disease. stable. no evidence of bleeding. monitor h/h. latent tb - continue rifampin, through 09/05. FEN - IVF for gentle hydration. electrolyte replacement prn. ADA diet. PPX - SCDs. lovenox. COR - DNR/DNI. daughter Nataly is proxy. Dispo - cont inpt, PT/OT, palliative care tomorrow Subjective: Pt doing ok, pain 5/10. She is mostly bed bound. No more fevers. Daughter Nataly open to palliative care. Objective: Vital Signs Temp Pulse Resp BP Pulse Ox 36.4 C 54 L 19 124/52 H 96 08/26/17 07:28 08/26/17 07:28 08/26/17 04:00 08/26/17 07:28 08/26/17 07:28 08/25/17 08/26/17 08/27/17 06:59 05:59 05:59 Intake Total Output Total Balance - Physical Exam Constitutional: no apparent distress Eyes: PERRL Ears, Nose, Mouth, Throat: moist mucous membranes Cardiovascular: regular rate and rhythym Respiratory: no respiratory distress, clear to auscultation Gastrointestinal: normoactive bowel sounds, soft, non-tender abdomen Skin: warm Musculoskeletal: full muscle strength Neurologic: AAOx3 Psychiatric: interacting appropriately ICD10 Worksheet Patient Problems: Problems Problem Status Onset Fever Acute History of fever Acute Joint pain Acute Arthritis Acute Bilateral hydronephrosis Acute Bladder outlet obstruction Acute Chest pain, moderate coronary artery risk Acute Contusion of mid back Acute Elevated white blood cell count Acute Hyponatremia Acute Intractable pain Acute Renal failure Acute Rheumatoid aortitis Acute Right ankle sprain Acute
--- NOTE | 2017-08-26 14:15 | ASMTCMCOM ---
CM Note CM Note Notes: Dr Nova met with pt and family today and recommended a palliative consult tomorrow. There is still no PT eval and OT rec HC vs SNF. CM will continue to follow. Date Signed: 08/26/2017 02:14 PM Electronically Signed By:Melany Finn LCSW
[2017-08-26] MEDS: metFORMIN HCL 500 MG TAB PO SCH (17:58)
[2017-08-26] MEDS: ROSUVASTATIN CALCIUM 10 MG TAB PO SCH (20:51)
[2017-08-27] MEDS: ACETAMINOPHEN 500 MG TAB PO SCH ×2 (01:33→09:47)
[2017-08-27] MEDS: oxyCODONE IR 5 MG TAB PO PRN ×3 (06:01→15:48)
[2017-08-27] MEDS: INSULIN LISPRO 100 UNIT/ML SC SCH ×2 (07:45→11:42)
[2017-08-27 08:02] VITALS: RESP 14
[2017-08-27] MEDS: RIFAMPIN 300 MG CAP PO SCH (08:15)
[2017-08-27] MEDS: ENOXAPARIN 40 MG/0.4 ML SYR SC SCH (09:47)
[2017-08-27] MEDS: metFORMIN HCL 500 MG TAB PO SCH (09:49)
[2017-08-27] MEDS: predniSONE 20 MG TAB PO SCH (09:49)
[2017-08-27] MEDS: LOSARTAN POTASSIUM 50 MG TAB PO SCH (09:50)
[2017-08-27] MEDS: FERROUS SULFATE 325 MG TAB PO SCH (09:52)
[2017-08-27] MEDS: CETIRIZINE 10 MG TAB PO SCH (09:52)
[2017-08-27] MEDS: GLUCOSAMINE SULF 500 MG CAP PO SCH (09:52)
[2017-08-27] MEDS: GABAPENTIN 100 MG CAP PO SCH ×2 (09:52→15:48)
[2017-08-27] MEDS: ASPIRIN EC 81 MG TAB PO SCH (09:52)
--- NOTE | 2017-08-27 15:36 | PDIAF ---
- Diagnosis Diagnosis: rheumatoid arthritis, latent TB Code Status: Do Not Resuscitate - Medication Management Discharge Medications: Medications to Continue on Transfer Aspirin EC [Aspirin EC 81 mg (*)] 81 mg PO DAILY 01/04/16 [Last Taken 08/24/17] Calcium Carb W/Vit D [Calcium Carb W/Vit D 500/200 (*)] 500 mg PO DAILY [Last Taken 08/24/17] Cetirizine [ZyrTEC 10 mg (*)] 10 mg PO DAILY 01/04/16 [Last Taken 08/24/17] metFORMIN HCL [Glucophage 500 mg (*)] 250 mg PO BIDMEAL 01/04/16 [Last Taken 01/05] Losartan Potassium [Cozaar 50 mg (*)] 50 mg PO DAILY 07/05/17 [Last Taken ] Rosuvastatin Calcium [Crestor] 10 mg PO HS 07/05/17 [Last Taken 08/24/17] Rifampin [Rifadin 300mg (*)] 600 mg PO DAILY 54 Days #0 07/13/17 [Last Taken 01/05] Albuterol [Ventolin Hfa Inhaler] 2 puffs IH Q4H PRN 08/25/17 [Last Taken Unknown ] Gabapentin [Neurontin 100 MG (*)] 200 mg PO TID 08/25/17 [Last Taken 08/24/17] Glucosamine Sulfate [Glucosamine Sulfate 500 MG (*)] 500 mg PO DAILY 08/25/17 [ Last Taken 08/24/17] Tofacitinib Citrate [Xeljanz Xr] 11 mg PO DAILY 08/25/17 [Last Taken 08/24/17] Ferrous Sulfate [Ferrous Sulf 325 MG (*)] 325 mg PO DAILY #30 tab 08/27/17 [ Last Taken Unknown] oxyCODONE IR [Oxycodone Ir (*)] 5 mg PO Q6H PRN #10 tab 08/27/17 [Last Taken Unknown] predniSONE 40 mg PO DAILY #20 tablet 08/27/17 [Last Taken Unknown] Discharge Medications: Refer to the Discharge Home Medication list for PRN reason. - Orders Services needed: Home Care, Registered Nurse, Certified Shell Trim Operator, Physical Therapy, Occupational Therapy Home Care Face to Face: I certify that this patient was under my care and that I had the required [id number] encounter meeting the encounter requirements on the discharge day. My findings support the fact that the patient is homebound as defined in Home Care Face to Face Continued: CMS Chapter 7 Medicare Benefits Manual 30.1.1 , The condition of the patient is such that there exists a normal inability to leave home and consequently, leaving home would require a considerable and taxing effort. Diet Recommendation: no restrictions on diet Additional: Follow up with milk tanker driver in 3-5 days - Follow Up Care Current Providers and Referrals: NONE *PRIMARY CARE P,. [Primary Care Provider] - As per Instructions
--- NOTE | 2017-08-27 15:36 | PDIAF ---
- Diagnosis Diagnosis: rheumatoid arthritis, latent TB Code Status: Do Not Resuscitate - Medication Management Discharge Medications: Medications to Continue on Transfer Aspirin EC [Aspirin EC 81 mg (*)] 81 mg PO DAILY 01/04/16 [Last Taken 08/24/17] Calcium Carb W/Vit D [Calcium Carb W/Vit D 500/200 (*)] 500 mg PO DAILY [Last Taken 08/24/17] Cetirizine [ZyrTEC 10 mg (*)] 10 mg PO DAILY 01/04/16 [Last Taken 08/24/17] metFORMIN HCL [Glucophage 500 mg (*)] 250 mg PO BIDMEAL 01/04/16 [Last Taken 01/05] Losartan Potassium [Cozaar 50 mg (*)] 50 mg PO DAILY 07/05/17 [Last Taken ] Rosuvastatin Calcium [Crestor] 10 mg PO HS 07/05/17 [Last Taken 08/24/17] Rifampin [Rifadin 300mg (*)] 600 mg PO DAILY 54 Days #0 07/13/17 [Last Taken 01/05] Albuterol [Ventolin Hfa Inhaler] 2 puffs IH Q4H PRN 08/25/17 [Last Taken Unknown ] Gabapentin [Neurontin 100 MG (*)] 200 mg PO TID 08/25/17 [Last Taken 08/24/17] Glucosamine Sulfate [Glucosamine Sulfate 500 MG (*)] 500 mg PO DAILY 08/25/17 [ Last Taken 08/24/17] Tofacitinib Citrate [Xeljanz Xr] 11 mg PO DAILY 08/25/17 [Last Taken 08/24/17] Ferrous Sulfate [Ferrous Sulf 325 MG (*)] 325 mg PO DAILY #30 tab 08/27/17 [ Last Taken Unknown] oxyCODONE IR [Oxycodone Ir (*)] 5 mg PO Q6H PRN #10 tab 08/27/17 [Last Taken Unknown] predniSONE 40 mg PO DAILY #20 tablet 08/27/17 [Last Taken Unknown] Discharge Medications: Refer to the Discharge Home Medication list for PRN reason. - Orders Services needed: Home Care, Registered Nurse, Certified Skilled Nursing Case Manager, Physical Therapy, Occupational Therapy Home Care Face to Face: I certify that this patient was under my care and that I had the required [id number] encounter meeting the encounter requirements on the discharge day. My findings support the fact that the patient is homebound as defined in Home Care Face to Face Continued: CMS Chapter 7 Medicare Benefits Manual 30.1.1 , The condition of the patient is such that there exists a normal inability to leave home and consequently, leaving home would require a considerable and taxing effort. Diet Recommendation: no restrictions on diet Additional: Follow up with family living educator in 3-5 days - Follow Up Care Current Providers and Referrals: NONE *PRIMARY CARE P,. [Primary Care Provider] - As per Instructions
--- NOTE | 2017-08-27 15:36 | PDIAF ---
- Diagnosis Diagnosis: rheumatoid arthritis, latent TB Code Status: Do Not Resuscitate - Medication Management Discharge Medications: Medications to Continue on Transfer Aspirin EC [Aspirin EC 81 mg (*)] 81 mg PO DAILY 01/04/16 [Last Taken 08/24/17] Calcium Carb W/Vit D [Calcium Carb W/Vit D 500/200 (*)] 500 mg PO DAILY [Last Taken 08/24/17] Cetirizine [ZyrTEC 10 mg (*)] 10 mg PO DAILY 01/04/16 [Last Taken 08/24/17] metFORMIN HCL [Glucophage 500 mg (*)] 250 mg PO BIDMEAL 01/04/16 [Last Taken 01/05] Losartan Potassium [Cozaar 50 mg (*)] 50 mg PO DAILY 07/05/17 [Last Taken ] Rosuvastatin Calcium [Crestor] 10 mg PO HS 07/05/17 [Last Taken 08/24/17] Rifampin [Rifadin 300mg (*)] 600 mg PO DAILY 54 Days #0 07/13/17 [Last Taken 01/05] Albuterol [Ventolin Hfa Inhaler] 2 puffs IH Q4H PRN 08/25/17 [Last Taken Unknown ] Gabapentin [Neurontin 100 MG (*)] 200 mg PO TID 08/25/17 [Last Taken 08/24/17] Glucosamine Sulfate [Glucosamine Sulfate 500 MG (*)] 500 mg PO DAILY 08/25/17 [ Last Taken 08/24/17] Tofacitinib Citrate [Xeljanz Xr] 11 mg PO DAILY 08/25/17 [Last Taken 08/24/17] Ferrous Sulfate [Ferrous Sulf 325 MG (*)] 325 mg PO DAILY #30 tab 08/27/17 [ Last Taken Unknown] oxyCODONE IR [Oxycodone Ir (*)] 5 mg PO Q6H PRN #10 tab 08/27/17 [Last Taken Unknown] predniSONE 40 mg PO DAILY #20 tablet 08/27/17 [Last Taken Unknown] Discharge Medications: Refer to the Discharge Home Medication list for PRN reason. - Orders Services needed: Home Care, Registered Nurse, Certified Guideman, Physical Therapy, Occupational Therapy Home Care Face to Face: I certify that this patient was under my care and that I had the required [id number] encounter meeting the encounter requirements on the discharge day. My findings support the fact that the patient is homebound as defined in Home Care Face to Face Continued: CMS Chapter 7 Medicare Benefits Manual 30.1.1 , The condition of the patient is such that there exists a normal inability to leave home and consequently, leaving home would require a considerable and taxing effort. Diet Recommendation: no restrictions on diet Additional: Follow up with customer success director in 3-5 days - Follow Up Care Current Providers and Referrals: NONE *PRIMARY CARE P,. [Primary Care Provider] - As per Instructions
[2017-08-27 15:51] VITALS: BP 166/74; PULSE 72; TEMP 98.2; O2SAT 95
--- NOTE | 2017-08-27 16:15 | GDS ---
[f rep st] DISCHARGE SUMMARY DISCHARGE DIAGNOSES: 1. Acute exacerbation of rheumatoid arthritis. 2. Fever, likely related to rheumatoid arthritis exacerbation. Afebrile since admission. 3. Latent tuberculosis, on rifampin. 4. Hyponatremia, resolved. 5. Volume depletion, resolved. 6. Type 2 diabetes mellitus. 7. Hypertension. 8. Debility and generalized weakness. 9. Coronary artery disease, stable. 10. Anemia of chronic disease. CONSULTANTS: Rani Villalobos, NODE JS DEVELOPER, Palliative Care HISTORY: For details, please see the History and Physical dated August 25, 2017. In brief, the patient is an 81-year-old female with multiple medical problems including advanced rheu matoid arthritis who is essentially bed bound and was diagnosed with latent tuberculosis, currently o n rifampin, who is admitted to the hospital for rheumatoid flare. HOSPITAL COURSE: The patient was in medical-surgical unit. It is noted she has had to hold her Xelj anz while on rifampin treatment for latent TB. She states she has been having problems with rheumato id flares while off her usual immuno modulator medication. She presented with a fever, though remain ed afebrile throughout the hospitalization. She was noted to have recently increased her prednisone from 5 mg to 15 mg daily per her drier helper. However, she still presented with an acute pain fla re. Her prednisone was increased to 60 mg daily. At the time of discharge, it is decreased to 40 mg with plans for a 2-week taper back down to her usual 5 mg daily dose. Palliative Care conference en sued on the day of discharge, and she will be set up for outpatient palliative care services. In add ition, she will have home health care RN, FLAME CHANNELER, PT and OT. The family is also looking into additional caregiver support. Consideration was given to her going back to rehab, though she just completed a rehab course. It is unlikely she is going to get much stronger and the family really wishes for her to go home. DISPOSITION: Patient is discharged home in stable condition with home health services including RN, PT, OT, and FLAME CHANNELER. FOLLOWUP: 1. Rheumatology in 3-5 days. 2. Primary Care. DISCHARGE MEDICATIONS: Please see [employer] for completed outpatient medication list. New medication s on discharge include iron 325 mg daily #30, no refills; oxycodone 5 mg p.o. q.6 hours p.r.n. #10, n o refills; and prednisone taper 40 mg p.o. daily for 3 days, then 30 mg p.o. daily for 3 days, then 2 0 mg p.o. daily for 3 days, then 10 mg p.o. daily for 3 days, then 5 mg p.o. daily until followup wit h her drier helper. She will resume all other outpatient medications as previously prescribed, shyla remy continuing on her Xeljanz. /[id number]/MODL
--- NOTE | 2017-08-27 16:15 | GDS ---
[f rep st] DISCHARGE SUMMARY DISCHARGE DIAGNOSES: 1. Acute exacerbation of rheumatoid arthritis. 2. Fever, likely related to rheumatoid arthritis exacerbation. Afebrile since admission. 3. Latent tuberculosis, on rifampin. 4. Hyponatremia, resolved. 5. Volume depletion, resolved. 6. Type 2 diabetes mellitus. 7. Hypertension. 8. Debility and generalized weakness. 9. Coronary artery disease, stable. 10. Anemia of chronic disease. CONSULTANTS: Rani Villalobos, TRIM MACHINE ADJUSTER, Palliative Care HISTORY: For details, please see the History and Physical dated August 25, 2017. In brief, the patient is an 81-year-old female with multiple medical problems including advanced rheu matoid arthritis who is essentially bed bound and was diagnosed with latent tuberculosis, currently o n rifampin, who is admitted to the hospital for rheumatoid flare. HOSPITAL COURSE: The patient was in medical-surgical unit. It is noted she has had to hold her Xelj anz while on rifampin treatment for latent TB. She states she has been having problems with rheumato id flares while off her usual immuno modulator medication. She presented with a fever, though remain ed afebrile throughout the hospitalization. She was noted to have recently increased her prednisone from 5 mg to 15 mg daily per her night time babysitter. However, she still presented with an acute pain fla re. Her prednisone was increased to 60 mg daily. At the time of discharge, it is decreased to 40 mg with plans for a 2-week taper back down to her usual 5 mg daily dose. Palliative Care conference en sued on the day of discharge, and she will be set up for outpatient palliative care services. In add ition, she will have home health care RN, SAMPLE CHECKER, PT and OT. The family is also looking into additional caregiver support. Consideration was given to her going back to rehab, though she just completed a rehab course. It is unlikely she is going to get much stronger and the family really wishes for her to go home. DISPOSITION: Patient is discharged home in stable condition with home health services including RN, PT, OT, and SAMPLE CHECKER. FOLLOWUP: 1. Rheumatology in 3-5 days. 2. Primary Care. DISCHARGE MEDICATIONS: Please see [facility] for completed outpatient medication list. New medication s on discharge include iron 325 mg daily #30, no refills; oxycodone 5 mg p.o. q.6 hours p.r.n. #10, n o refills; and prednisone taper 40 mg p.o. daily for 3 days, then 30 mg p.o. daily for 3 days, then 2 0 mg p.o. daily for 3 days, then 10 mg p.o. daily for 3 days, then 5 mg p.o. daily until followup wit h her night time babysitter. She will resume all other outpatient medications as previously prescribed, shyla remy continuing on her Xeljanz. /[id number]/MODL
--- NOTE | 2017-08-27 16:15 | GDS ---
[f rep st] DISCHARGE SUMMARY DISCHARGE DIAGNOSES: 1. Acute exacerbation of rheumatoid arthritis. 2. Fever, likely related to rheumatoid arthritis exacerbation. Afebrile since admission. 3. Latent tuberculosis, on rifampin. 4. Hyponatremia, resolved. 5. Volume depletion, resolved. 6. Type 2 diabetes mellitus. 7. Hypertension. 8. Debility and generalized weakness. 9. Coronary artery disease, stable. 10. Anemia of chronic disease. CONSULTANTS: Rani Villalobos, ENGINEER BOOSTER AND EXHAUSTER, Palliative Care HISTORY: For details, please see the History and Physical dated August 25, 2017. In brief, the patient is an 81-year-old female with multiple medical problems including advanced rheu matoid arthritis who is essentially bed bound and was diagnosed with latent tuberculosis, currently o n rifampin, who is admitted to the hospital for rheumatoid flare. HOSPITAL COURSE: The patient was in medical-surgical unit. It is noted she has had to hold her Xelj anz while on rifampin treatment for latent TB. She states she has been having problems with rheumato id flares while off her usual immuno modulator medication. She presented with a fever, though remain ed afebrile throughout the hospitalization. She was noted to have recently increased her prednisone from 5 mg to 15 mg daily per her thermite welder. However, she still presented with an acute pain fla re. Her prednisone was increased to 60 mg daily. At the time of discharge, it is decreased to 40 mg with plans for a 2-week taper back down to her usual 5 mg daily dose. Palliative Care conference en sued on the day of discharge, and she will be set up for outpatient palliative care services. In add ition, she will have home health care RN, SPINNING ROOM WORKER, PT and OT. The family is also looking into additional caregiver support. Consideration was given to her going back to rehab, though she just completed a rehab course. It is unlikely she is going to get much stronger and the family really wishes for her to go home. DISPOSITION: Patient is discharged home in stable condition with home health services including RN, PT, OT, and SPINNING ROOM WORKER. FOLLOWUP: 1. Rheumatology in 3-5 days. 2. Primary Care. DISCHARGE MEDICATIONS: Please see [employer] for completed outpatient medication list. New medication s on discharge include iron 325 mg daily #30, no refills; oxycodone 5 mg p.o. q.6 hours p.r.n. #10, n o refills; and prednisone taper 40 mg p.o. daily for 3 days, then 30 mg p.o. daily for 3 days, then 2 0 mg p.o. daily for 3 days, then 10 mg p.o. daily for 3 days, then 5 mg p.o. daily until followup wit h her thermite welder. She will resume all other outpatient medications as previously prescribed, shyla remy continuing on her Xeljanz. /[id number]/MODL
--- NOTE | 2017-08-27 17:00 | ASMTCMCOM ---
CM Note CM Note Notes: Pt medically stable for d/c w family support and continued services w [facility], RN/EQUALIZING SAW OPERATOR/PT/OT. Orders sent in [employer]. Pt dghtr has already submitted a LTC pennie to [facility] and [facility] has assessed, told dghtr pt qualifies for HCBS, dghtr is just waiting for the HCBS services to start for additional support. Date Signed: 08/27/2017 05:00 PM Electronically Signed By:PRECIOUS King
--- NOTE | 2017-08-27 17:00 | ASMTCMCOM ---
CM Note CM Note Notes: Pt medically stable for d/c w family support and continued services w [facility], RN/PROFESSIONAL DEVELOPMENT MANAGER/PT/OT. Orders sent in [employer]. Pt dghtr has already submitted a LTC pennie to [facility] and [facility] has assessed, told dghtr pt qualifies for HCBS, dghtr is just waiting for the HCBS services to start for additional support. Date Signed: 08/27/2017 05:00 PM Electronically Signed By:PRECIOUS King
--- NOTE | 2017-08-27 17:00 | ASMTCMCOM ---
CM Note CM Note Notes: Pt medically stable for d/c w family support and continued services w [facility], RN/CERTIFIED OPTICIAN/PT/OT. Orders sent in [employer]. Pt dghtr has already submitted a LTC pennie to [facility] and [facility] has assessed, told dghtr pt qualifies for HCBS, dghtr is just waiting for the HCBS services to start for additional support. Date Signed: 08/27/2017 05:00 PM Electronically Signed By:PRECIOUS King
--- NOTE | 2017-08-27 19:05 | PDPCPN ---
Palliative Care Progress Note Assessment/Plan: Referring provider: Dr Nova Reason for consult: Complex medical decision making Symptom control HPI: Amanda Lr is a 81 yo with PMH RA, DM, HTN, HLD and latent TB infection currently being treated admitted to the hospital for AMS, fever, and general body pain. Found to have negative infectious work up and started on steroids for presumed RA exacerbation with improvement in symptoms. she has been off of her regular RA medications due to the TB meds. Palliative care consulted for complex medical decision making. met with Amanda and her family (many children, and grandchildren) at the bedside with the help of the service cleaner. Amanda described her previous experience of rehab being horrible and not something she wants to repeat. Previous to June admission she was able to walk with a walker and take care of some of her ADLs. She lives alone but family is always present 24/7 doing shifts. After the last hospitalization she improved a little but still needed considerable assistance with transfers and some ADLs. She had HHC at home but had only been home for 2 weeks before being readmitted. Amanda states she wants to live at home and be as independent minded as possible. She likes to be in charge of herself and her own decisions. She states if things got worse in the future she would "want the injection to make me ". She states she saw someone in rehab who was dependent on all ADLs as well as not aware of her surroundings and she would never want to be in that state. Her family understands her wishes and are open to increased care at home with home health as well as palliative care. Assessment: Physical: - Pain: all over pain- improved - on tylenol scheduled - gabapentin 200 mg TID - oxycodone IR 10 mg PRN- monitor and if continues to use > 4 doses per day would consider long acting - continue prednisone per pirmary - weakness - PT/OT as able - constipation - at risk with opiates recommend bowel regimen with senna and colace Emotional/psychological: Doing well, has a lot of family support Advanced Care Planning: Is patient decisional?: yes Code Status: DNR POA: 3 oldest children are MDPOA. Plan: Home when ready. Will set up outpatient palliative care. Subjective: my pain is better Objective: Social History: Lives alone but children are around 24/7. she has 12 children, 8 live locally and are involved. She enjoys being around her family. Medication list reviewed ROS: General: fatigue, weakness ENT: negative Resp: negative GI: constipation : negative MS: body pain Skin: negative Neuro: negative Psych: negative Functional assessment: PPS: 40% Functional status: needs assistance with ADLs. Vital Signs Temp Pulse Resp BP Pulse Ox 36.8 C 72 14 166/74 H 95 08/27/17 15:49 08/27/17 15:49 08/27/17 15:49 08/27/17 15:49 08/27/17 15:49 08/26/17 08/27/17 08/28/17 05:59 05:59 05:59 Intake Total 300 550 Output Total Balance 300 550 Physical Exam - Physical Exam General Appearance: alert, no apparent distress Respiratory: No respiratory distress, No accessory muscle use Skin: normal color, warm/dry Extremities: No pedal edema Neuro/Psych: alert, oriented x 3 ICD10 Worksheet Patient Problems: Problems Problem Status Onset Arthritis Acute Bilateral hydronephrosis Acute Bladder outlet obstruction Acute Chest pain, moderate coronary artery risk Acute Contusion of mid back Acute Elevated white blood cell count Acute Fever Acute History of fever Acute Hyponatremia Acute Intractable pain Acute Joint pain Acute Palliative care encounter Acute Renal failure Acute Rheumatoid aortitis Acute Right ankle sprain Acute - ICD10 Problem Qualifiers (1) Palliative care encounter
--- NOTE | 2017-08-28 15:00 | ASMTCMCOM ---
CM Note CM Note Notes: Faxed [facility] clinicals today as pt set up w outpatient palliative by [facility] palliative team. Date Signed: 08/28/2017 02:59 PM Electronically Signed By:PRECIOUS King
--- NOTE | 2017-08-28 15:00 | ASMTCMCOM ---
CM Note CM Note Notes: Faxed [facility] clinicals today as pt set up w outpatient palliative by [facility] palliative team. Date Signed: 08/28/2017 02:59 PM Electronically Signed By:PRECIUOS King
--- NOTE | 2017-08-28 15:00 | ASMTCMCOM ---
CM Note CM Note Notes: Faxed [facility] clinicals today as pt set up w outpatient palliative by [facility] palliative team. Date Signed: 08/28/2017 02:59 PM Electronically Signed By:PRECIOUS King
--- NOTE | 2017-08-28 15:01 | ASDISCHSUM ---
Discharge Information Plan Status:Home with Home Health Medically Cleared to Leave: Discharge Date:08/27/2017 05:19 PM CM D/C Disposition:Home Health Service ADT D/C Disposition:HHSNOTBCH Projected Discharge Date:08/27/2017 11:00 AM Transportation at D/C:Family Discharge Delay Reason: Follow-Up Date:08/27/2017 11:00 AM Discharge Slot: Final Diagnosis: Placement Information Referral Type:*Home Health Care Services Referral ID:[id number] Provider Name:[facility] Address 1:[address] Address 2: City:[place] Selection Factors: State:[place] Patient Contact Information Contact Name:CHASE Relationship:Daughter Address:[address] City:[place] Alternate Phone: State/Zip Code:[place] [address] Email: Financial Information Financial Class: Primary Plan Desc:MEDICARE IP PART B ONLY Primary Plan Number:[id number] Secondary Plan Desc:[place] Secondary Plan Number:[id number] Assessment Information [facility] CM Progress Note CM Note CM Note Notes: DC needs not clear yet. Pt lives with dtr and family per H&P, need to meet w/family to confirm living situation. OT recommending HHC vs SNF depending on pt's progress, awaiting PT recommendation. CM will follow. Current DC plan: to be determined Date Signed: 08/25/2017 06:12 PM Electronically Signed By:Claudine Wylie RN [facility] CM Progress Note CM Note CM Note Notes: Dr Nova met with pt and family today and recommended a palliative consult tomorrow. There is still no PT eval and OT rec HC vs SNF. CM will continue to follow. 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 Orders sent in [employer]. Pt dgr has already submitted a LTC pennie to [facility] and [facility] has assessed, told dghtr pt qualifies for HCBS, dghtr is just waiting for the HCBS services to start for additional support. Date Signed: 08/27/2017 05:00 PM Electronically Signed By:PRECIOUS King [facility] CM Progress Note CM Note CM Note Notes: Faxed [facility] today as pt set up w outpatient palliative by [facility] palliative team. Date Signed: 08/28/2017 02:59 PM Electronically Signed By:PRECIOUS King Intervention Information
--- NOTE | 2017-08-28 15:01 | ASDISCHSUM ---
Discharge Information Plan Status:Home with Home Health Medically Cleared to Leave: Discharge Date:08/27/2017 05:19 PM CM D/C Disposition:Home Health Service ADT D/C Disposition:HHSNOTBCH Projected Discharge Date:08/27/2017 11:00 AM Transportation at D/C:Family Discharge Delay Reason: Follow-Up Date:08/27/2017 11:00 AM Discharge Slot: Final Diagnosis: Placement Information Referral Type:*Home Health Care Services Referral ID:[id number] Provider Name:[facility] Address 1:[address] Address 2: City:[place] Selection Factors: State:[place] Patient Contact Information Contact Name:CHASE Relationship:Daughter Address:[address] City:[place] Alternate Phone: State/Zip Code:[place] [address] Email: Financial Information Financial Class: Primary Plan Desc:MEDICARE IP PART B ONLY Primary Plan Number:[id number] Secondary Plan Desc:[place] Secondary Plan Number:[id number] Assessment Information [facility] CM Progress Note CM Note CM Note Notes: DC needs not clear yet. Pt lives with dtr and family per H&P, need to meet w/family to confirm living situation. OT recommending HHC vs SNF depending on pt's progress, awaiting PT recommendation. CM will follow. Current DC plan: to be determined Date Signed: 08/25/2017 06:12 PM Electronically Signed By:Claudine Wylie RN [facility] CM Progress Note CM Note CM Note Notes: Dr Nova met with pt and family today and recommended a palliative consult tomorrow. There is still no PT eval and OT rec HC vs SNF. CM will continue to follow. 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 Orders sent in All[employer]. Pt dgr has already submitted a LTC pennie to [facility] and [facility] has assessed, told dghtr pt qualifies for HCBS, dghtr is just waiting for the HCBS services to start for additional support. Date Signed: 08/27/2017 05:00 PM Electronically Signed By:PRECIOUS King [facility] CM Progress Note CM Note CM Note Notes: Faxed [facility] today as pt set up w outpatient palliative by [facility] palliative team. Date Signed: 08/28/2017 02:59 PM Electronically Signed By:PRECIOUS King Intervention Information
--- NOTE | 2017-08-28 15:01 | ASDISCHSUM ---
Discharge Information Plan Status:Home with Home Health Medically Cleared to Leave: Discharge Date:08/27/2017 05:19 PM CM D/C Disposition:Home Health Service ADT D/C Disposition:HHSNOTBCH Projected Discharge Date:08/27/2017 11:00 AM Transportation at D/C:Family Discharge Delay Reason: Follow-Up Date:08/27/2017 11:00 AM Discharge Slot: Final Diagnosis: Placement Information Referral Type:*Home Health Care Services Referral ID:[id number] Provider Name:[facility] Address 1:[address] Address 2: City:[place] Selection Factors: State:[place] Patient Contact Information Contact Name:CHASE Relationship:Daughter Address:[address] City:[place] Alternate Phone: State/Zip Code:[place] [address] Email: Financial Information Financial Class: Primary Plan Desc:MEDICARE IP PART B ONLY Primary Plan Number:[id number] Secondary Plan Desc:[place] Secondary Plan Number:[id number] Assessment Information [facility] CM Progress Note CM Note CM Note Notes: DC needs not clear yet. Pt lives with dtr and family per H&P, need to meet w/family to confirm living situation. OT recommending HHC vs SNF depending on pt's progress, awaiting PT recommendation. CM will follow. Current DC plan: to be determined Date Signed: 08/25/2017 06:12 PM Electronically Signed By:Claudine Wylie RN [facility] CM Progress Note CM Note CM Note Notes: Dr Nova met with pt and family today and recommended a palliative consult tomorrow. There is still no PT eval and OT rec HC vs SNF. CM will continue to follow. Date Signed: 08/26/2017 02:14 PM Electronically Signed By:Melany Finn LCSW [facility] CM Progress Note CM Note CM Note Notes: Pt medically stable for d/c w family support and [facility]/FORECLOSURE SPECIALIST/PT/OT. Orders sent in Allscripts. Pt dgr has already submitted a LTC pennie to [facility] and [facility] has assessed, told dghtr pt qualifies for HCBS, dghtr is just waiting for the HCBS services to start for additional support. Date Signed: 08/27/2017 05:00 PM Electronically Signed By:PRECIOUS King [facility] CM Progress Note CM Note CM Note Notes: Faxed [facility] today as pt set up w outpatient palliative by [facility] palliative team. Date Signed: 08/28/2017 02:59 PM Electronically Signed By:PRECIOUS King Intervention Information
== END 2017-08-27 17:19 | disposition home health service (06) | DRG 546 ==
LOC: EDUNIT# → F3N 23:59 → OBSVTOIN 08-25 10:30
PROVIDERS: ADMIT Family Medicine; ATTEND Hospitalist
DX: M06.9 Rheumatoid arthritis, unspecified (principal); E87.1 Hypo-osmolality and hyponatremia; D72.829 Elevated white blood cell count, unspecified; E86.9 Volume depletion, unspecified; R76.11 Nonspecific reaction to tuberculin skin test without active tuberculosis; E11.9 Type 2 diabetes mellitus without complications; M16.0 Bilateral primary osteoarthritis of hip; D63.8 Anemia in other chronic diseases classified elsewhere; I10 Essential (primary) hypertension; E78.5 Hyperlipidemia, unspecified; I25.10 Atherosclerotic heart disease of native coronary artery without angina pectoris; Z87.891 Personal history of nicotine dependence; Z79.4 Long term (current) use of insulin; Z99.3 Dependence on wheelchair; Z66 Do not resuscitate; Z79.52 Long term (current) use of systemic steroids
CPT/HCPCS: 96374; 97162-GP; 97166-GO; 97530-GP; 97535-GO; G0378; G8978-GP-CL; G8979-GP-CJ; G8987-GO-CM; G8988-GO-CL; J1170; J1650; J1815; J2930

== ENCOUNTER → 2017-11-28 | Outpatient (CLI) | payer OTHER, MEDICAID | LOC: FIMAGING 11:06 | PROVIDERS: ATTEND Family Medicine | DX: Z12.31 Encounter for screening mammogram for malignant neoplasm of breast (principal) ==

== ENCOUNTER 2019-02-08 09:36 | Inpatient (IN) | payer OTHER, MEDICAID ==
[2019-02-08] MEDS ORDERED: NS 500 ML IV ONE (09:56)
[2019-02-08] MEDS ORDERED: MECLIZINE HCL 25 MG TAB PO ONE (10:05)
[2019-02-08] MEDS ORDERED: ONDANSETRON 4 MG/2 ML VIAL IVP ONE (10:05)
--- NOTE | 2019-02-08 10:08 | EDPHY ---
H & P Stated Complaint: N/V dizziness, SOB Time Seen by Provider: 02/08/19 09:54 HPI/ROS: CHIEF COMPLAINT: Vomiting, dizziness HISTORY OF PRESENT ILLNESS: 83-year-old female with hypertension and diabetes presents with vomiting and dizziness. Onset room spinning sensation yesterday evening, associated with multiple episodes of vomiting. The room spinning sensation increases with any movement of her head or eyes. Difficulty walking because of dizziness. No recent neck/head injury and no headache. Denies shortness of breath. 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, GERD , possible chronic hyponatremia - Social History Smoking Status: Former smoker Alcohol Use: Sober Drug Use: None - Physical Exam Exam: General Appearance: Alert, pleasant, appears uncomfortable Eyes: Pupils equal and round, no conjunctival pallor or injection, horizontal nystagmus, fast component to the left ENT, Mouth: Mucous membranes moist Neck: Normal inspection Respiratory: Lungs are clear to auscultation Cardiovascular: Regular rate and rhythm Gastrointestinal: Abdomen is soft and nontender Neurological: Alert, oriented x3, cranial nerves II through XII intact, motor 5 /5, sensory grossly intact, gait not assessed Skin: Warm and dry Extremities: Normal inspection Psychiatric: Mood and affect normal Constitutional: Initial Vital Signs Temperature (C) 37 C 02/08/19 09:41 Heart Rate 64 02/08/19 09:41 Respiratory Rate 20 02/08/19 09:41 Blood Pressure 163/89 H 02/08/19 09:41 O2 Sat (%) 96 02/08/19 09:41 O2 Delivery Mode Room Air O2 (L/minute) 3 Allergies/Adverse Reactions: Penicillins Allergy (Unknown, Verified 07/02/17 08:37) Home Medications: Medication Instructions Recorded Aspirin EC [Aspirin EC 81 mg (*)] 81 mg PO DAILY 01/04/16 Calcium Carb W/Vit D [Calcium Carb 500 mg PO DAILY 01/04/16 W/Vit D 500/200 (*)] Cetirizine [ZyrTEC 10 mg (*)] 10 mg PO DAILY 01/04/16 metFORMIN HCL [Glucophage 500 mg 250 mg PO BIDMEAL 01/04/16 (*)] Losartan Potassium [Cozaar 50 mg 50 mg PO DAILY 07/05/17 (*)] Rosuvastatin Calcium [Crestor] 10 mg PO HS 07/05/17 Rifampin [Rifadin 300mg (*)] 600 mg PO DAILY 54 Days #0 07/13/17 Albuterol [Ventolin Hfa Inhaler] 2 puffs IH Q4H PRN 08/25/17 Gabapentin [Neurontin 100 MG (*)] 200 mg PO TID 08/25/17 Glucosamine Sulfate [Glucosamine 500 mg PO DAILY 08/25/17 Sulfate 500 MG (*)] Tofacitinib Citrate [Xeljanz Xr] 11 mg PO DAILY 08/25/17 Ferrous Sulfate [Ferrous Sulf 325 325 mg PO DAILY #30 tab 08/27/17 MG (*)] oxyCODONE IR [Oxycodone Ir (*)] 5 mg PO Q6H PRN #10 tab 08/27/17 predniSONE 40 mg PO DAILY #20 tablet 08/27/17 Medical Decision Making - Diagnostics EKG Interpretation: EKG interpreted by me reveals normal sinus rhythm, rate 59, right bundle branch block. Interpretation: Abnormal EKG Imaging Results: Imaging Impressions Head CT 02/08/19 10:05 Impression: Stable noncontrast CT of the head post right MCA aneurysm clipping. Results called to Dr. Christiane Aguilar at 10:50 AM at the time of the interpretation. ED Course/Re-evaluation: This patient presents with vertigo. Neurologic exam is unremarkable and peripheral etiology is most likely. Given advanced age, CT scan was obtained and is unremarkable. IV normal saline 500 mL and Zofran IV given. Meclizine 25 mg orally given. The patient initially felt better. Tried to sit her up, developed severe vertigo again. Valium 2.5 mg IV given. Persistent vertigo. Will admit for vertigo. The hospitalist service was consulted for admission. Differential Diagnosis: Differential diagnosis includes TIA, stroke, intracranial hemorrhage, tumor, electrolyte abnormality and acute labyrinthitis. - Data Points Laboratory Results: Laboratory Results 02/08/19 10:05 02/08/19 10:05 02/08/19 02/08/19 02/08/19 10:08 10:05 10:05 WBC 9.42 10^3/uL 10^3/uL (3.80-9.50) RBC 4.47 10^6/uL 10^6/uL (4.18-5.33) Hgb 12.9 g/dL g/dL (12.6-16.3) Hct 39.2 % % (38.0-47.0) MCV 87.7 fL fL (81.5-99.8) MCH 28.9 pg pg (27.9-34.1) MCHC 32.9 g/dL g/dL (32.4-36.7) RDW 13.8 % % (11.5-15.2) Plt Count 298 10^3/uL 10^3/uL (150-400) MPV 10.8 fL fL (8.7-11.7) Neut % (Auto) 56.0 % % (39.3-74.2) Lymph % (Auto) 29.9 % % (15.0-45.0) [place] % (Auto) 11.9 % % (4.5-13.0) Eos % (Auto) 1.2 % % (0.6-7.6) Baso % (Auto) 0.6 % % (0.3-1.7) Nucleat RBC Rel Count 0.0 % % (0.0-0.2) Absolute Neuts (auto) 5.27 10^3/uL 10^3/uL (1.70-6.50) Absolute Lymphs (auto) 2.82 10^3/uL 10^3/uL (1.00-3.00) Absolute Monos (auto) 1.12 10^3/uL H 10^3/uL (0.30-0.80) Absolute Eos (auto) 0.11 10^3/uL 10^3/uL (0.03-0.40) Absolute Basos (auto) 0.06 10^3/uL 10^3/uL (0.02-0.10) Absolute Nucleated RBC 0.00 10^3/uL 10^3/uL (0-0.01) Immature Gran % 0.4 % % (0.0-1.1) Immature Gran # 0.04 10^3/uL 10^3/uL (0.00-0.10) Sodium 140 mEq/L mEq/L (135-145) Potassium 3.3 mEq/L L mEq/L (3.5-5.2) Chloride 99 mEq/L mEq/L (97-110) Carbon Dioxide 29 mEq/l mEq/l (22-31) Anion Gap 12 mEq/L mEq/L (6-14) BUN 25 mg/dL H mg/dL (7-23) Creatinine 1.1 mg/dL H mg/dL (0.6-1.0) Estimated GFR 47 Glucose 142 mg/dL H mg/dL (70-100) Calcium 10.5 mg/dL H mg/dL (8.5-10.4) Total Bilirubin 0.3 mg/dL mg/dL (0.1-1.4) Conjugated Bilirubin 0.1 mg/dL mg/dL (0.0-0.5) Unconjugated Bilirubin 0.2 mg/dL mg/dL (0.0-1.1) AST 27 IU/L IU/L (14-46) ALT 46 IU/L IU/L (9-52) Alkaline Phosphatase 89 IU/L IU/L (38-126) POC Troponin I 0.01 ng/mL ng/mL (0.00-0.08) Total Protein 8.0 g/dL g/dL (6.3-8.2) Albumin 4.7 g/dL g/dL (3.5-5.0) Lipase 70 IU/L IU/L (23-300) Medications Given: Discontinued Medications Diazepam (Valium) 2.5 mg IVP EDNOW ONE Stop: 02/08/19 11:40 Last Admin: 02/08/19 11:43 Dose: 2.5 mg Sodium Chloride (Ns) 500 mls @ 1,000 mls/hr IV EDNOW ONE PRN Reason: Protocol Stop: 02/08/19 10:25 Last Admin: 02/08/19 10:04 Dose: 500 mls Meclizine HCl (Meclizine Hcl) 25 mg PO EDNOW ONE Stop: 02/08/19 10:06 Last Admin: 02/08/19 10:09 Dose: 25 mg Ondansetron HCl (Zofran) 4 mg IVP EDNOW ONE Stop: 02/08/19 10:06 Last Admin: 02/08/19 10:09 Dose: 4 mg Point of Care Test Results: Chemistry 02/08/19 10:08 POC Troponin I 0.01 ng/mL ng/mL (0.00-0.08) Departure - Departure Disposition: [facility] Inpatient Acute Clinical Impression: Vertigo Condition: Fair
[2019-02-08 10:22] LABS: PLATELET COUNT 298 10^3/uL (150-400)
[2019-02-08] MEDS ORDERED: DIAZEPAM 10 MG/2 ML SYR IVP ONE (11:39)
--- NOTE | 2019-02-08 12:42 | CPEKG ---
Test Reason : OPEN Blood Pressure : / mmHG Vent. Rate : 059 BPM Atrial Rate : 059 BPM P-R Int : 178 ms QRS Dur : 137 ms QT Int : 433 ms P-R-T Axes : 051 -06 000 degrees QTc Int : 429 ms Sinus rhythm Right bundle branch block Confirmed by Christiane Aguilar ([id number]) on 02/08/2019 12:41:46 PM Referred By: Christiane Aguilar Confirmed By:Christiane Aguilar
--- NOTE | 2019-02-08 13:00 | PDGENHP ---
History and Physical - Chief Complaint dizziness - History of Present Illness Patient is a 83 year old female with pmh of RA, latent TB (completed treatment) , CAD, DM, HTN, aneurysm status post clipping, new diagnosis of emphysema, who presented to the ER with complaints of dizziness and vertigo. Symptoms started last night. she lied down and when she woke up this morning she felt the symptoms were worse. she says that when she moves her head the dizziness is much worse. she feels better with closing her eyes. she does not feel lightheaded. she says that she was recently diagnosed with emphysema and started on an inhaler and so has been feeling short of breath. she denied any cough, fevers, chills, chest pain. she does have nausea and is struggling to eat or drink. History Information - Allergies/Home Medication List Allergies/Adverse Reactions: Penicillins Allergy (Unknown, Verified 07/02/17 08:37) Home Medications: Aspirin EC [Aspirin EC 81 mg (*)] 81 mg PO DAILY 01/04/16 [Last Taken 08/24/17] Calcium Carb W/Vit D [Calcium Carb W/Vit D 500/200 (*)] 500 mg PO DAILY [Last Taken 08/24/17] Cetirizine [ZyrTEC 10 mg (*)] 10 mg PO DAILY 01/04/16 [Last Taken 08/24/17] metFORMIN HCL [Glucophage 500 mg (*)] 1,000 mg PO BIDMEAL 01/04/16 [Last Taken 08/24/17] Losartan Potassium [Cozaar 50 mg (*)] 50 mg PO DAILY 07/05/17 [Last Taken ] Rosuvastatin Calcium [Crestor] 10 mg PO HS 07/05/17 [Last Taken 08/24/17] Albuterol [Ventolin Hfa Inhaler] 2 puffs IH Q4H PRN 08/25/17 [Last Taken Unknown ] Gabapentin [Neurontin 100 MG (*)] 200 mg PO TID 08/25/17 [Last Taken 08/24/17] Glucosamine Sulfate [Glucosamine Sulfate 500 MG (*)] 500 mg PO DAILY 08/25/17 [ Last Taken 08/24/17] Acetaminophen [Acetaminophen 8 Hour] 650 mg PO HS 02/08/19 [Last Taken Unknown] Hydrochlorothiazide [HCTZ (*)] 25 mg PO DAILY 02/08/19 [Last Taken Unknown] Tiotropium [place] [Spiriva Respimat] 2 puffs IH DAILY 02/08/19 [Last Taken Unknown] oxyCODONE IR [Oxycodone Ir (*)] 5 mg PO DAILY PRN 02/08/19 [Last Taken Unknown] predniSONE 5 mg PO DAILY 02/08/19 [Last Taken Unknown] I have personally reviewed and updated: family history, medical history, social history, surgical history - Past Medical History arthritis (OA and rheumatoid arthritis), diabetes type 2, hypertension, hyperlipidemia Additional medical history: + TB test on rifampin tx last dosing due 2016. EMR lists urinary retention but daughter denies any issues. allergic rhinitis. CAD w/o angina. thoracic vertebral fracture. hx cerebral aneurysm with SAH s/p clip. rib fracture. debility with generalized weakness. wheelchair bound. - Surgical History Reports: no pertinent surgical hx Additional surgical history: cerebral aneurysm clip. cataract extraction with lens placement. maik. bladder lift, - Family History Additional family history: multiple daughters with DM II, HTN. parents advanced age. - Social History Smoking Status: Former smoker Alcohol Use: Sober Drug Use: None Additional social history: Patient lives with her daughter and her family. She had 12 children 8 of whom are still living locally and involved in patient care. COR - DNR/DNI. daughters are proxy. Review of Systems Review of Systems: ROS: 10pt was reviewed & negative except for what was stated in HPI & below Physical Exam Physical Exam: Temp Pulse Resp BP Pulse Ox 37 C 64 18 137/74 H 94 02/08/19 09:41 02/08/19 11:26 02/08/19 11:26 02/08/19 11:26 02/08/19 11:53 Constitutional: no apparent distress, appears nourished, not in pain Eyes: PERRL, anicteric sclera, EOMI Ears, Nose, Mouth, Throat: moist mucous membranes, hearing normal, ears appear normal, no oral mucosal ulcers Cardiovascular: regular rate and rhythym, no murmur, rub, or gallop, No edema Respiratory: no respiratory distress, no rales or rhonchi, clear to auscultation Gastrointestinal: normoactive bowel sounds, soft, non-tender abdomen, no palpable masses Genitourinary: no bladder fullness, no bladder tenderness Skin: warm, normal color, no rashes or abrasions, no fluctuance, no induration, No mottled Musculoskeletal: full muscle strength, no muscle tenderness, normal joint ROM, no joint effusions Psychiatric: interacting appropriately, not anxious, not encephalopathic, thought process linear Lymph, Heme, Immunologic: no cervical LAD, no supraclavicular LAD Lab Data & Imaging Review 02/08/19 10:05 02/11/19 04:52 WBC 9.42 10^3/uL (3.80-9.50) 02/08/19 10:05 RBC 4.47 10^6/uL (4.18-5.33) 02/08/19 10:05 Hgb 12.9 g/dL (12.6-16.3) 02/08/19 10:05 Hct 39.2 % (38.0-47.0) 02/08/19 10:05 MCV 87.7 fL (81.5-99.8) 02/08/19 10:05 MCH 28.9 pg (27.9-34.1) 02/08/19 10:05 MCHC 32.9 g/dL (32.4-36.7) 02/08/19 10:05 RDW 13.8 % (11.5-15.2) 02/08/19 10:05 Plt Count 298 10^3/uL (150-400) 02/08/19 10:05 MPV 10.8 fL (8.7-11.7) 02/08/19 10:05 Neut % (Auto) 56.0 % (39.3-74.2) 02/08/19 10:05 Lymph % (Auto) 29.9 % (15.0-45.0) 02/08/19 10:05 [place] % (Auto) 11.9 % (4.5-13.0) 02/08/19 10:05 Eos % (Auto) 1.2 % (0.6-7.6) 02/08/19 10:05 Baso % (Auto) 0.6 % (0.3-1.7) 02/08/19 10:05 Nucleat RBC Rel Count 0.0 % (0.0-0.2) 02/08/19 10:05 Absolute Neuts (auto) 5.27 10^3/uL (1.70-6.50) 02/08/19 10:05 Absolute Lymphs (auto) 2.82 10^3/uL (1.00-3.00) 02/08/19 10:05 Absolute Monos (auto) 1.12 10^3/uL (0.30-0.80) H 02/08/19 10:05 Absolute Eos (auto) 0.11 10^3/uL (0.03-0.40) 02/08/19 10:05 Absolute Basos (auto) 0.06 10^3/uL (0.02-0.10) 02/08/19 10:05 Absolute Nucleated RBC 0.00 10^3/uL (0-0.01) 02/08/19 10:05 Immature Gran % 0.4 % (0.0-1.1) 02/08/19 10:05 Immature Gran # 0.04 10^3/uL (0.00-0.10) 02/08/19 10:05 Sodium 140 mEq/L (135-145) 02/08/19 10:05 Potassium 3.3 mEq/L (3.5-5.2) L 02/08/19 10:05 Chloride 99 mEq/L (97-110) 02/08/19 10:05 Carbon Dioxide 29 mEq/l (22-31) 02/08/19 10:05 Anion Gap 12 mEq/L (6-14) 02/08/19 10:05 BUN 25 mg/dL (7-23) H 02/08/19 10:05 Creatinine 1.1 mg/dL (0.6-1.0) H 02/08/19 10:05 Estimated GFR 47 02/08/19 10:05 Glucose 142 mg/dL (70-100) H 02/08/19 10:05 Calcium 10.5 mg/dL (8.5-10.4) H 02/08/19 10:05 Total Bilirubin 0.3 mg/dL (0.1-1.4) 02/08/19 10:05 Conjugated Bilirubin 0.1 mg/dL (0.0-0.5) 02/08/19 10:05 Unconjugated Bilirubin 0.2 mg/dL (0.0-1.1) 02/08/19 10:05 AST 27 IU/L (14-46) 02/08/19 10:05 ALT 46 IU/L (9-52) 02/08/19 10:05 Alkaline Phosphatase 89 IU/L (38-126) 02/08/19 10:05 POC Troponin I 0.01 ng/mL (0.00-0.08) 02/08/19 10:08 Total Protein 8.0 g/dL (6.3-8.2) 02/08/19 10:05 Albumin 4.7 g/dL (3.5-5.0) 02/08/19 10:05 Lipase 70 IU/L (23-300) 02/08/19 10:05 Assessment & Plan Assessment: 83 year old female with pmh of RA, treated latent tb, new COPD here with vertigo. Vertigo- may be BPPV vs vestibular neuritis/labyrinthitis. doubt central cause given her history of symptoms. she denies any tinnitus, ear or sinus discomfort. I reviewed the ct of her head and it does show old aneurysm clipping but no suggesting of any acute change to this. Labs WNL, and exam reassuring. -meclizine -PT/OT to perform maynor hallpike. -if able perform carlos maneuver. -aniemetics HTN- cont home losartan, hold HCTZ with low K and high Ca. add PRN hydralazine if needed. RA- previously on xeljanz which was stopped due to latent TB. now on prednisone 5mg daily. cont. CAD- on losartan, asa, crestor. cont. Hx of Aneurysm- clipped MCA aneurysm. CTH today shows this is stable. RAD- patient new diagnosis of emphysema two days ago. on albuterol and ipratropium. Not hypoxic or wheezy. Cont home inhalers. titrate oxygen if needed. PAPA- likely prerenal azotemia. Giving IVNS. repeat in am. Hypokalemia- possibly from poor po intake or HCTZ. holding thiazide and replete. recheck in am. Hypercalcemia- giving fluids and holding hctz. repeat in am. if persists or worsens may need to eval for more nefarious etiologies. NIDDM- on metformin. cont while here. PPX- SCDs, Lovenox Fluids- NS Lytes- low K, high Ca Nutrition- diebetic diet Cor- DNR Dispo- observation for vertigo.
[2019-02-08] MEDS ORDERED: oxyCODONE IR 5 MG TAB PO PRN (13:51)
[2019-02-08] MEDS ORDERED: ALBUTEROL 60 PUFFS/8 GM MDI IH PRN (14:00)
[2019-02-08] MEDS: NS 1,000 ML IV SCH (14:57)
[2019-02-08] MEDS: GABAPENTIN 100 MG CAP PO SCH ×2 (16:23→21:02)
--- NOTE | 2019-02-08 16:31 | ASMTCMCOM ---
CM Note CM Note Notes: Reviewed chart. Pt presented to the Emergency Department with complaints of nausea, vomiting, dizziness. History includes RA, latent TB, CAD, HTN, HLD, diabetes type 2, aneurysm, emphysema. Pt is wheelchair bound and lives with her dghtr and family. She has 12 children, 8 are local. Pt admitted for further observation and treatment. Discharge needs remain unclear at this time. CM will continue to follow. Date Signed: 02/08/2019 04:31 PM Electronically Signed By:Charlette Pino RN
[2019-02-08] MEDS: metFORMIN HCL 500 MG TAB PO SCH (17:54)
[2019-02-08] MEDS: ROSUVASTATIN CALCIUM 10 MG TAB PO SCH (21:02)
[2019-02-09] MEDS: NS 1,000 ML IV SCH (06:07)
[2019-02-09] MEDS: Tiotropium Bromide [Spiriva Respimat] 2 PUFFS IH SCH (08:01)
[2019-02-09] MEDS: metFORMIN HCL 500 MG TAB PO SCH ×2 (09:59→17:42)
[2019-02-09] MEDS: CETIRIZINE 10 MG TAB PO SCH (09:59)
[2019-02-09] MEDS: LOSARTAN POTASSIUM 50 MG TAB PO SCH (10:00)
[2019-02-09] MEDS: GABAPENTIN 100 MG CAP PO SCH ×3 (10:00→20:40)
[2019-02-09] MEDS: ASPIRIN EC 81 MG TAB PO SCH (10:00)
[2019-02-09] MEDS: predniSONE 5 MG TAB PO SCH (10:00)
[2019-02-09] MEDS: MECLIZINE HCL 25 MG TAB PO PRN (12:50)
[2019-02-09] MEDS ORDERED: ACETAMINOPHEN 325 MG TAB PO PRN (14:17)
--- NOTE | 2019-02-09 14:29 | HOSPPROG ---
Hospitalist Progress Note Assessment/Plan: 83 year old female with pmh of RA, treated latent tb, new COPD here with vertigo. Vertigo- BPPV vs vestibular neuritis/labyrinthitis. doubt central cause given her history of symptoms. she denies any tinnitus, ear or sinus discomfort. I reviewed the ct of her head and it does show old aneurysm clipping but no suggesting of any acute change to this. Labs WNL, and exam reassuring. PT saw today and was unable to perform [place] Hallpike due to hx of RA and aneurysm and patients pain. Side laying test not conclusive but no nystagmus. -meclizine -aniemetics -PT/OT HTN- cont home losartan, hold HCTZ with low K and high Ca. add PRN hydralazine if needed. RA- previously on xeljanz which was stopped due to latent TB. now on prednisone 5mg daily. cont. CAD- on losartan, asa, crestor. cont. Hx of Aneurysm- clipped MCA aneurysm. CTH today shows this is stable. RAD- patient new diagnosis of emphysema two days ago. on albuterol and ipratropium. Not hypoxic or wheezy. Cont home inhalers. titrate oxygen if needed. PAPA- likely prerenal azotemia. Giving IVNS. repeat in am. Hypokalemia- possibly from poor po intake or HCTZ. holding thiazide and replete. recheck in am. Hypercalcemia- giving fluids and holding hctz. repeat in am. if persists or worsens may need to eval for more nefarious etiologies. NIDDM- on metformin. cont while here. PPX- SCDs, Lovenox Fluids- NS Lytes- low K, high Ca Nutrition- diebetic diet Cor- DNR Dispo- patient too weak and dizzy to go home. Will likely need SNF. CM working to assist. in the interim will make inpatietn for further treatment of vertigo. Subjective: still with dizziness with movement. No NV. symptoms mildly improved Objective: Vital Signs Temp Pulse Resp BP Pulse Ox 37.2 C 67 16 133/62 H 91 L 02/09/19 11:12 02/09/19 11:12 02/09/19 11:12 02/09/19 11:12 02/09/19 11:12 Laboratory Results 02/09/19 09:58 02/08/19 02/09/19 02/10/19 05:59 05:59 05:59 Intake Total 500 Balance 500 - Physical Exam Constitutional: no apparent distress, appears nourished, not in pain Eyes: PERRL, anicteric sclera, EOMI Ears, Nose, Mouth, Throat: moist mucous membranes, hearing normal, ears appear normal, no oral mucosal ulcers Cardiovascular: regular rate and rhythym, no murmur, rub, or gallop Respiratory: no respiratory distress, no rales or rhonchi, clear to auscultation Gastrointestinal: normoactive bowel sounds, soft, non-tender abdomen, no palpable masses Genitourinary: no bladder fullness, no bladder tenderness, no renal bruits Skin: no rashes or abrasions, no fluctuance, no induration Musculoskeletal: full muscle strength, no muscle tenderness, normal joint ROM Neurologic: AAOx3, sensation intact bilaterally Psychiatric: interacting appropriately, not anxious, not encephalopathic, thought process linear Lymph, Heme, Immunologic: no cervical LAD, no supraclavicular LAD ICD10 Worksheet Patient Problems: Problems Problem Status Onset Vertigo Acute Arthritis Acute Bilateral hydronephrosis Acute Bladder outlet obstruction Acute Chest pain, moderate coronary artery risk Acute Contusion of mid back Acute Elevated white blood cell count Acute Fever Acute History of fever Acute Hyponatremia Acute Intractable pain Acute Joint pain Acute Palliative care encounter Acute Renal failure Acute Rheumatoid aortitis Acute Right ankle sprain Acute
[2019-02-09] MEDS: ROSUVASTATIN CALCIUM 10 MG TAB PO SCH (20:40)
[2019-02-10] MEDS: LOSARTAN POTASSIUM 50 MG TAB PO SCH (08:18)
[2019-02-10] MEDS: predniSONE 5 MG TAB PO SCH (08:19)
[2019-02-10] MEDS: ASPIRIN EC 81 MG TAB PO SCH (08:19)
[2019-02-10] MEDS: CETIRIZINE 10 MG TAB PO SCH (08:19)
[2019-02-10] MEDS: GABAPENTIN 100 MG CAP PO SCH ×3 (08:19→21:02)
[2019-02-10] MEDS: metFORMIN HCL 500 MG TAB PO SCH ×2 (08:20→17:23)
[2019-02-10] MEDS: Tiotropium Bromide [Spiriva Respimat] 2 PUFFS IH SCH (10:54)
--- NOTE | 2019-02-10 12:24 | HOSPPROG ---
Hospitalist Progress Note Assessment/Plan: # dizziness - possible cerebellar findings on exam - MRI impossible given her aneurysm clip - check carotid US, echo, place on tele - cont meclizine - she is on good treatment for CVA already # hx MCA aneurysm s/p clip - stable on imaging # DM - glucs reasonable - cont metformin # RA - prednisone # htn - labile - cont losartan, hold hctz # hyperCa - resolved with IVF # hypoK - better # HLD - crestor # COPD - recent dx of emphysema - on RA but SOB with ambulation Subjective: went to bathroom then felt significantly more dizzy Objective: Vital Signs Temp Pulse Resp BP Pulse Ox 36.0 C 63 16 165/58 H 93 02/10/19 11:48 02/10/19 11:48 02/10/19 11:48 02/10/19 11:48 02/10/19 11:48 Laboratory Results 02/09/19 09:58 02/09/19 02/10/19 02/11/19 05:59 05:59 05:59 Intake Total 500 Balance 500 chart reviewed CTH reviewed - Physical Exam Constitutional: chronically ill appearing, other (laying in bed, joking with her daughters) Cardiovascular: regular rate and rhythym, no murmur, rub, or gallop Respiratory: no respiratory distress, no rales or rhonchi, clear to auscultation Gastrointestinal: normoactive bowel sounds, soft, non-tender abdomen Neurologic: AAOx3, other (difficulty with L sided finger to nose) ICD10 Worksheet Patient Problems: Problems Problem Status Onset Vertigo Acute Arthritis Acute Bilateral hydronephrosis Acute Bladder outlet obstruction Acute Chest pain, moderate coronary artery risk Acute Contusion of mid back Acute Elevated white blood cell count Acute Fever Acute History of fever Acute Hyponatremia Acute Intractable pain Acute Joint pain Acute Palliative care encounter Acute Renal failure Acute Rheumatoid aortitis Acute Right ankle sprain Acute
--- NOTE | 2019-02-10 12:42 | ASMTCMCOM ---
CM Note CM Note Notes: Spoke with hospitalist and pt's family in the room. Pt is current with [facility] (LUBE TECHNICIAN only) through [facility]. PT/OT are recommending SNF, but pt is refusing and has abundance family support at home. Pt and family are open to HHC. Referral sent to [facility] at family's request. Pt dizzy today. Possible d/c tomorrow. CM to follow. D/C Plan: [facility] pending acceptance. Date Signed: 02/10/2019 12:42 PM Electronically Signed By:Jane Araiza
--- NOTE | 2019-02-10 14:43 | PDMN ---
Medical Necessity Medical necessity: [facility] M152 Dizziness, A-1 day: 83 yo w/ dizziness and vertigo. Initially OBS for workup/tx but pt cont w/ same s/sx after OBS care, possibly r/ t cerebellar findings on exam, cont to monitor on tele, get carotid US and echo , treat for CVA - unable to obtain MRI due to hx of aneurysm clipping, pt still c/o of dizziness and is SOB on ambulation. BP labile. PT/OT. Requires>2MN for ongoing monitoring and tx. Hx RA, latent TB (completed treatment), CAD, DM , HTN, aneurysm s/p clip, new dx emphysema. change to IP status 02/10/19@1216 per MD order
--- NOTE | 2019-02-10 17:09 | ECHO ---
[email or web address] [address] [address] Main: [phone] Echocardiography Examination Transthoracic Name: MELISSA CONKLIN MR#: [id number] Study Date: 02/10/2019 Study Time: 02:45 PM Date of : 1935 Age: 83 year(s) Height: 154.9 cm (61 in.) Weight: 69.4 kg (153 lb.) BSA: 1.69 m2 Gender: Female Examination: Echo Contrast: Image Quality: Technically Difficult Rhythm: Heart Rate: BP: / Indication: Cardiac: dizziness and/or near-syncope Procedure Staff Referring Physician: Head Turbine Operator: Allegra Khan [facility] Reading Physician: Janee David MD Requesting Provider: Ordering Physician: Esdrsa Tan Indication: Cardiac: dizziness and/or near-syncope No blood pressure available Measurements Chambers AV/MV Label Value Normal Value Label Value Normal Value LVOTd 1.7 cm (1.8cm - 2cm) AV PGmax 19 mmHg LVOT VTI 32.8 cm (18cm - 22cm) AV PGmean 10 mmHg LVDd, 2D 4.1 cm (3.9cm - 5.3cm) AV Vmax 2.2 m/s LVDs, 2D 2.6 cm (2.1cm - 4cm) RENE (VTI) 1.6 cm2 IVSd, 2D 1.2 cm (0.6cm - 1.1cm) MV E Vmax 0.78 m/s LVPWd, 2D 1.1 cm MV A Vmax 0.85 m/s LVEF, BP 65 % (55% - 70%) MV E/A 0.92 LVEF, 2D 65 % (54% - 74%) MV E/E' lateral 9.2 LVOT PGmean 6 mmHg MV E/E' septal 13.3 (0.45 - 1.25) LVOT Vmean 1.17 m/s MV DT 250 ms RVDd, 2D 2.9 cm (1.9cm - 3.8cm) MV E' septal 0.06 m/s LA Volume, BP 37 ml (22ml - 52ml) MV PHT 0.07 s LADs, 2D 3.3 cm (2.7cm - 3.8cm) MVA PHT 3 cm2 LAESV index, BP 21.9 ml/m2 MV E' lateral 0.08 m/s RA Area 12.6 cm2 MV E/E' mean 11.14 Additional Vessels MV PHT 74 ms Label Value Normal Value MV E' mean 0.07 m/s Patient: MELISSA CONKLIN Study Date: 02/10/2019 Page 1 of 3 02:45 PM AoAsc 2.8 cm TV/PV AoRoot, 2D 2.4 cm (1.4cm - 2.6cm) Label Value Normal Value RA Pressure 5 mmHg RVSP 27 mmHg TR Pmax 22 mmHg TR Vmax 2.35 m/s PV PGmax 4 mmHg PV Vmax, Caliper 0.95 m/s (0.6m/s - 0.9m/s) Conclusions 1. The LV is normal in size and systolic function. Normal wall motion. Normal diastolic function. LVEF is 65% 2. RV is normal in size and systolic 3. Normal biatrial size 4. Mild MR 5. Normal estimated RVSP 6. No prior echo Findings Left Ventricle: Left ventricle is normal in size. Normal global systolic left ventricular function. The ejection fraction, measured by Simpsons method, is 65 %. EF range is estimated at 60 % - 65 %. There is mild concentric left ventricular hypertrophy. There are no regional wall motion abnormalities. Left ventricular diastolic function parameters are normal. Right Ventricle: Normal size right ventricle. Right ventricular systolic function is normal. Left Atrium: The left atrium is normal in size. Right Atrium: The right atrium is normal in size. Mitral Valve: Mitral valve appears structurally normal. Mild mitral regurgitation. No mitral valve stenosis. Aortic Valve: Aortic leaflets are structurally normal. No significant aortic valve regurgitation. There is trivial aortic stenosis. There is aortic sclerosis present. Tricuspid Valve: Right Ventricular systolic pressure is measured at 27 mmHg. Pulmonary artery pressure normal. Pulmonic Valve: Pulmonic valve not well visualized. Aorta: The aortic root size in 2D measures 2.4 cm. The ascending aorta measures 2.8 cm. Aorta Measurements AoRoot, 2D is 2.4 cm. Great Vessels: IVC not well visualized. Pericardium: A pericardial fat pad is present. No pericardial effusion. Exam Details Procedure Ordered: Echo Procedure Status: Routine study Image Quality: Technically Difficult Facility Location: Bedside Patient: MELISSA CONKLIN Study Date: 02/10/2019 Page 2 of 3 02:45 PM (No Signature Object) Patient: MELISSA CONKLIN Study Date: 02/10/2019 Page 3 of 3 02:45 PM [id number]
[2019-02-10] MEDS: ROSUVASTATIN CALCIUM 10 MG TAB PO SCH (21:02)
[2019-02-11] MEDS: ASPIRIN EC 81 MG TAB PO SCH (09:23)
[2019-02-11] MEDS: predniSONE 5 MG TAB PO SCH (09:23)
[2019-02-11] MEDS: metFORMIN HCL 500 MG TAB PO SCH (09:23)
[2019-02-11] MEDS: CETIRIZINE 10 MG TAB PO SCH (09:23)
[2019-02-11] MEDS: MECLIZINE HCL 25 MG TAB PO PRN (09:23)
[2019-02-11] MEDS: LOSARTAN POTASSIUM 50 MG TAB PO SCH (09:24)
[2019-02-11] MEDS: GABAPENTIN 100 MG CAP PO SCH (09:24)
[2019-02-11] MEDS: Tiotropium Bromide [Spiriva Respimat] 2 PUFFS IH SCH (10:32)
[2019-02-11 11:19] VITALS: BP 116/65
--- NOTE | 2019-02-11 12:49 | PDIAF ---
- Diagnosis Diagnosis: Vertigo Code Status: Do Not Resuscitate - Medication Management Discharge Medications: electronically signed and located in the Home Medication List. - Orders Services needed: Registered Nurse, Certified Geoint Analyst, Physical Therapy, Occupational Therapy Isolation Type: None Diet Recommendation: no restrictions on diet - Follow Up Care Current Providers and Referrals: Yemi Brewer MD [Primary Care Provider] - As per Instructions
--- NOTE | 2019-02-11 13:07 | GDS ---
[f rep st] DISCHARGE SUMMARY FINAL DIAGNOSES: 1. Vertigo. 2. History of middle cerebral artery aneurysm, status post clip. 3. Diabetes mellitus, on metformin. 4. Rheumatoid arthritis, on prednisone. 5. Labile hypertension. 6. Hypercalcemia. 7. Hypokalemia. 8. Hyperlipidemia. 9. Chronic obstructive pulmonary disease with a recent diagnosis of emphysema. HOSPITAL COURSE: An 83-year-old female, presented with dizziness. This is most consistent with vert igo. Echocardiogram showed no cardiac cause of dizziness. She had ultrasound of her carotids; was u nrevealing. Head CT did not show any etiology. Telemetry showed no significant arrhythmias to expla in this. She has been treated with meclizine with some improvement in her symptoms overall. She was offered usp facility. However, her daughters are very helpful in her care and she would prefer to be discharged to home. I have ordered home care for her. She is, otherwise, discharged i n stable condition BILLING: I spent more than 30 minutes on the day of discharge coordinating care. /[id number]/MODL
--- NOTE | 2019-02-11 14:16 | ASDISCHSUM ---
Discharge Information Plan Status:Home with Home Health Medically Cleared to Leave:02/11/2019 Discharge Date:02/11/2019 01:21 PM CM D/C Disposition:Home Health Service [facility] D/C Disposition:[id number] Projected Discharge Date:02/11/2019 11:00 AM Transportation at D/C:Family Discharge Delay Reason: Follow-Up Date:02/11/2019 11:00 AM Discharge Slot: Final Diagnosis:vertigo Placement Information Referral Type:*Home Health Care Services Referral ID:[id number] Provider Name:[facility] Address 1:[address] Phone Number: Address 2: Fax Number: City:[place] Selection Factors: State:[place] Patient Contact Information Contact Name:KARINRODRIGUEZWALTERSAMARANAIF Relationship:Daughter Address:[address] [place] Alternate Phone: State/Zip Code:[place] [address] Email: Financial Information Financial Class:Medicare Primary Plan Desc:MEDICARE IP PART B ONLY Primary Plan Number:[id number] Secondary Plan Desc:MED[place] Secondary Plan Number:[id number] Assessment Information [facility] CM Progress Note CM Note CM Note Notes: Reviewed chart. Pt presented to the Emergency Department with complaints of nausea, vomiting, dizziness. History includes RA, latent TB, CAD, HTN, HLD, diabetes type 2, aneurysm, emphysema. Pt is wheelchair bound and lives with her dghtr and family. She has 12 children, 8 are local. Pt admitted for further observation and treatment. Discharge needs remain unclear at this time. CM will continue to follow. Date Signed: 02/08/2019 04:31 PM Electronically Signed By:Charlette Pino RN [facility] CM Progress Note CM Note CM Note Notes: Spoke with hospitalist and pt's family in the room. Pt is current with [facility] (PROGRAM EVALUATOR only) through [facility]. PT/OT are recommending SNF, but pt is refusing and has abundance family support at home. Pt and family are open to HHC. [facility]erral sent to [facility] at family's request. Pt dizzy today. Possible d/c tomorrow. CM to follow. D/C Plan: [facility] pending acceptance. Date Signed: 02/10/2019 12:42 PM Electronically Signed By:Jane Araiza Case Management Discharge Plan Note Case Management Discharge Discharge Order Complete? Answers: Yes Patient to Obtain Answers: via Family Medications Transportation Arranged Answers: Family/Friends Transport will Pick (Date 02/11/2019 12:00 AM & Time) Faxed Final Orders Answers: Yes Agency/Facility Transfer Answers: Yes Report Printed & Faxed to Receiving Agency Family Notified Answers: Yes Notes: in the room Discharge Comments Notes: Pt discharged home with RN, PROGRAM EVALUATOR, OT and PT through [facility]. Family and pt comfortable with this plan. No further CM needs noted at this time. Date Signed: 02/11/2019 02:14 PM Electronically Signed By:Jane Araiza Intervention Information
--- NOTE | 2019-02-14 14:27 | PQFORM ---
PHYSICIAN QUERY FORM Needs Your Response This query form is being sent to you to assure this patient record is coded properly. Please respond to the question below: ORE TESTER QUESTION: Dear Dr. Tan, Acute Kidney Injury was documented in Dr. Potts's H&P and 02/09 Hospitalist Progress Note. Patients Creatinine level on 02/08=1.1 mg/dL, on 02/11 =1.1 mg/dL. H&P and Hospital note state; "PAPA-likely prerenal azotemia, giving IVNS." Based on the clinical indicators and your professional judgment should the diagnosis of Acute Kidney Injury be included in the Discharge Summary? Yes No Other more appropriate diagnosis (Please specify) ___x__Clinically unable to determine Thank you KRISTA Donohue HIM/Coding Dept. INSTRUCTIONS FOR RESPONSE: Answer question by clicking on the "Edit Document" button. Move cursor to area below the stars. When complete, hit "Save." Click on the "Sign" button, then click "Sign" again. Type in your PIN and hit "Enter." MTDD
== END 2019-02-11 13:21 | disposition home health service (06) | DRG 149 ==
LOC: F3E 14:29 → OBSVTOIN 02-10 12:16
PROVIDERS: ADMIT Internal Medicine; ATTEND Internal Medicine
DX: R42 Dizziness and giddiness (principal); E11.9 Type 2 diabetes mellitus without complications; M06.9 Rheumatoid arthritis, unspecified; I10 Essential (primary) hypertension; E83.52 Hypercalcemia; E87.6 Hypokalemia; E78.5 Hyperlipidemia, unspecified; J43.9 Emphysema, unspecified; Z66 Do not resuscitate; Z79.84 Long term (current) use of oral hypoglycemic drugs; Z86.11 Personal history of tuberculosis; Z87.891 Personal history of nicotine dependence
CPT/HCPCS: 84484-ER; 96374; 97116-GP; 97162-GP; 97530-GP; G0378; J2405; J3360; J7512